=== PATIENT | female | born 1950 | race Hispanic/Latino ===

== ENCOUNTER → 2019-02-03 | Day surgery (SDC) | payer MEDICARE, OTHER ==
[2019-01-29 16:41] LABS: BASOPHILS # (AUTO) 0.1 (0.0-0.1); BASOPHILS % 0.9 % (0.0-1.0); EOSINOPHILS # (AUTO) 0.1 (0.0-0.4); HEMOGLOBIN 13.4 g/dL (12.0-16.0); LYMPHOCYTES # (AUTO) 2.9 (1.0-3.2); LYMPHOCYTES % 51.3 % (18.0-39.1); MEAN CORPUSCULAR HEMOGLOBIN 34.1 pg (28-32); MEAN CORPUSCULAR HGB CONC 35.3 g/dL (31-35); MEAN CORPUSCULAR VOLUME 96.7 fL (81-99); MONOCYTES # (AUTO) 0.7 (0.2-0.8); MONOCYTES % 11.6 % (4.4-11.3); NEUTROPHILS # (AUTO) 1.9 (2.1-6.9); PLATELET COUNT 146 x10e3/uL (140-360); RED BLOOD COUNT 3.93 x10e6/uL (3.6-5.1)
[2019-01-29 17:05] LABS: ALANINE AMINOTRANSFERASE 30 IU/L (0-55); ALBUMIN 3.1 g/dL (3.5-5.0); ALBUMIN/GLOBULIN RATIO 0.9 (0.8-2.0); ALKALINE PHOSPHATASE 128 IU/L (40-150); ANION GAP 11.4 mmol/L (8-16); BLOOD UREA NITROGEN 13 mg/dL (7-26); BUN/CREATININE RATIO 19 (6-25); CARBON DIOXIDE 30 mmol/L (22-29); CHLORIDE 105 mmol/L (98-107); CREATININE, SERUM 0.67 mg/dL (0.57-1.11); EST GLOMERULAR FILTRATION RATE > 60 ML/MIN (60-); GLUCOSE 86 mg/dL (74-118); POTASSIUM 3.4 mmol/L (3.5-5.1); SODIUM 143 mmol/L (136-145)
--- NOTE | 2019-01-29 17:18 | Diagnostic Imaging Report ---
EXAMINATION: CHEST 2 VIEWS INDICATION: Shortness of breath, asthma COMPARISON: None FINDINGS: TUBES and LINES: None. LUNGS: The lungs are moderately inflated. No focal consolidation or pulmonary edema. PLEURA: No pleural effusion or pneumothorax. HEART AND MEDIASTINUM: The cardiomediastinal silhouette is normal in size and contour. BONES AND SOFT TISSUES: No acute fracture or dislocation. Mild degenerative changes of the visualized spine. UPPER ABDOMEN: No free air under the diaphragm. IMPRESSION: No focal pneumonia or pulmonary edema. Signed by: Iglesia Mckeon MD on 01/29/2019 5:15 PM
[2019-01-29 18:27] LABS: INR 1.05; PROTHROMBIN TIME 14.2 seconds (11.9-14.5)
[~2019-02-03] MED LIST: ASPIRIN81 MG PO; ATORVASTATIN CA20 MG PO; BROVANA15 MCG/2 M NEB; FENTANYL CITRATE/PF 100MCG/2 ML INJ ONE; FUROSEMIDE40 MG PO; IPRATROPIU0.2 MG/1 M NEB; METOPROLOL TART25 MG PO; MONTELUKAST SOD10 MG PO; PANTOPRAZOLE SO40 MG PO; POTASSIUM CHLO10 ME1 PO; POTASSIUM CHLO20 ME1; PROPOFOL IV EMULSION 10 MG/ML 50 ML VIAL ONE; SPIRONOLACTONE25 MG PO; [UNRECOGNIZED DRUG - OTHER] NEB
--- OUTSIDE RECORDS SUMMARY | 2019-02-03 08:50 | XMS REPORT | Clinical Summary ---
Author Author [facility] Address Unknown Phone Unavailable Care Team Providers Care Corrosion Prevention Metal Sprayer Name Role Phone Sharpless PCP Allergies Not on File Medications Not on file Active Problems Not on file Social History Date Tobacco Use Types Packs/Day Years Used Never Assessed Sex Assigned at Date Recorded Not on file Industry Job Start Date Occupation Not on file Not on file Not on file Travel End Travel History Travel Start No recent travel history available. Last Filed Vital Signs Not on file Plan of Treatment Not on file Results Not on fileafter 02/02/2018 Insurance Payer Benefit Subscriber ID Type Phone Address Plan / Group [facility] xxxxxxxxxxx HMO/POS [phone] [facility] CHOICE EXCHANGE [facility] xxxxxxxxx MEDICARE D CARE MEDICARE O
--- OUTSIDE RECORDS SUMMARY | 2019-02-03 08:50 | XMS REPORT | Summary of Care ---
Author Author [facility] Organization [facility] Address Unknown Phone Unavailable Encounter CHRIS García(FIN) [id number] Date(s): 12/17/18 - 12/17/18 [facility] [address] [place] [address]- [phone] Discharge Disposition: Home or Self Care Attending Physician: Jluis Faria MD Vital Signs No data available for this section Problem List Condition Effective Dates Status Health Status Informant Abdominal Active pain(Confirmed) Chest Active pain(Confirmed) Cirrhosis of Active liver(Confirmed) H/O: CVA(Confirmed) Active HTN - Active Hypertension(Confirm ed) Microhematuria(Confi Active rmed) Mixed Active incontinence(Confirm ed) Allergies, Adverse Reactions, Alerts No Known Medication Allergies Medications Cipro 500 mg oral tablet 500 mg=1 tab, PO, Q12H, X 7 day, # 14 tab, 0 Refill(s), Pharmacy: [facility] [id number] Start Date: 12/17/18 Stop Date: 12/24/18 Status: Ordered Results No data available for this section Immunizations No data available for this section Procedures No data available for this section Social History Social History Type Response Smoking Status Never smoker; Previous treatment: None; Exposure to Tobacco Smoke None; Cigarette Smoking Last 365 Days No; Reg Smoking Cessation Counseling No entered on: 08/28/18 Assessment and Plan No data available for this section
--- OUTSIDE RECORDS SUMMARY | 2019-02-03 08:50 | XMS REPORT | Continuity of Care Document ---
Author Author [email or web address] Organization [email or web address] Address Unknown Phone Unavailable Care Team Providers Care Clearance Cutter Name Role Phone [facility] Information [employer] Unavailable Unavailable Problems Problem Status Onset Date Classification Date Reported Comments Source N39.46 - MIXED INCONTINENCE Active 09/05/2018 [facility] [employer] N39.46 - MIXED INCONTINENCE R10.9 - UNSP Active 08/29/2018 [facility] [employer] Abdominal pain Active Problem 12/20/2018 [facility] Chest pain Active Problem 12/20/2018 [facility] Cirrhosis of liver Active Problem 12/20/2018 [facility] H/O: CVA Active Problem 12/20/2018 [facility] HTN - Hypertension Active Problem 12/20/2018 [facility] Microhematuria Active Problem 12/20/2018 [facility] Mixed incontinence Active Problem 12/20/2018 [facility] Medications Medication Details Route Status Patient Instructions Ordering Provider Order Date Source Ciprofloxacin 500 MG Oral Tablet [Cipro] 500 mg=1 tab, PO, Q12H, X 7 day, # 14 tab, 0 Refill(s), Pharmacy: [id number] Active 12/17/2018 [facility] Allergies, Adverse Reactions, Alerts Substance Category Reaction Severity Reaction type Status Date Reported Comments Source No Known Medication Allergies Assertion Drug allergy [facility] Immunizations No Data Provided for This Section Results No Data Provided for This Section Pathology Reports No Data Provided for This Section Diagnostic Reports Report Value Date Source Abdomen/Pelvis w/wo IV contrast CT Study: Abdomen/Pelvis w/wo IV contrast CT Clinical Indication: - lower pelvic pain and pressure for years Comparison: None TECHNIQUE: Multiple axial CT images of the abdomen and pelvis were acquired before and after the administration of intravenous contrast. Oral contrast was administered to the patient. Sagittal and coronal reformatted images were performed. CT Radiation Dose DLP 1764.2 mGy-cm FINDINGS: The visualized lung bases are clear bilaterally. The liver is cirrhotic in morphology with a nodular contour. Left splenorenal shunt is seen. There is a 1.9 cm left adrenal nodule, demonstrating 9 Hounsfield units on the precontrast images. This is compatible with a benign adenoma. Gallbladder, pancreas, right adrenal gland, and bilateral kidneys are normal in appearance. No hydronephrosis or perinephric stranding is seen. No renal or ureteral stones are noted. No focal renal lesion is identified. No intrahepatic or extrahepatic biliary duct dilatation is seen. Urinary bladder is well-distended. Patient is status post hysterectomy. The visualized hollow viscera and appendix are normal in appearance. No bowel wall thickening or inflammatory fat stranding is seen. Mild arterial calcifications are noted. No intraperitoneal free air, free fluid, or pathologic adenopathy is seen. Superficial soft tissues are unremarkable. Bones are demineralized. Chronic-appearing mild osteoporotic compression deformity of L4 is seen with 30% loss of central height and 2 mm osseous retropulsion. Degenerative changes of the lower lumbar spine are seen. IMPRESSION: 1. No acute intra-abdominal/pelvic abnormality. 2. Cirrhotic morphology of the liver. 3. 1.9 cm left adrenal adenoma. 4. No focal abnormality of the kidneys or urinary bladder. SL: [id number] 09/05/2018 [facility] Consultation Notes No Data Provided for This Section Discharge Summaries No Data Provided for This Section History and Physicals No Data Provided for This Section Vital Signs No Data Provided for This Section Encounters Location Location Details Encounter Type Encounter Number Reason For Visit Attending Provider ADM Date DC Date Status Source Outpatient [id number] ART GARCIAPercy 08/28/2018 Active [facility] Outpatient [id number] URODYNAMICS 09/17/2018 [facility] Outpatient [id number] ART GARCIAPercy 09/18/2018 Active [facility] Outpatient [id number] NURSE VISIT 09/18/2018 [facility] Outpatient [id number] -URODYNAMICS, 12/17/2018 [facility] Outpatient [id number] Art Mabrysarkis 12/17/2018 12/18/2018 [facility] [id number] -URODYNAMICS, 12/31/2018 Active [facility] Procedures No Data Provided for This Section Assessment and Plan No Data Provided for This Section Plan of Care No Data Provided for This Section Social History Social History Date Source Social History TypeResponse Smoking Status Never smoker; Previous treatment: None; Exposure to Tobacco Smoke None; Cigarette Smoking Last 365 Days No; Reg Smoking Cessation Counseling No entered on: 08/28/18 08/28/2018 [facility] Family History No Data Provided for This Section Advance Directives No Data Provided for This Section Functional Status No Data Provided for This Section
--- OUTSIDE RECORDS SUMMARY | 2019-02-03 08:51 | XMS REPORT ---
Author Author [facility] Address Unknown Phone Unavailable Care Team Providers Care Leather Roller Name Role Phone NAVDEEPSTEFAN JIMMYLLUVIAKip Unavailable Unavailable CARD, [address] Unavailable Unavailable Payers Payer Name Policy Type Policy Number Effective Date Expiration Date Problems This patient has no known problems. Allergies, Adverse Reactions, Alerts Allergy Name Allergy Type Status Severity Reaction(s) Onset Date Inactive Date Treating Clinician Comments No Known Allergies DA Active U 2017-10-27 00:00:00 Medications This patient has no known medications. Encounters Start Date/Time End Date/Time Encounter Type Admission Type Attending Clinicians Care Facility Care Department Encounter ID 2016-12-13 12:34:[address] [facility] [id number] 2017-08-26 00:00:00 2017-08-26 00:00:[address] [facility] [id number] 2017-07-19 00:00:00 2017-07-19 00:00:[address] [facility] [id number] 2017-02-20 00:00:00 2017-02-20 00:00:[address] [facility] [id number] 2017-01-18 00:00:00 2017-01-18 00:00:[address] [facility] [id number] 2017-01-11 00:00:00 2017-01-11 00:00:[address] [facility] [id number] 2016-12-28 00:00:00 2016-12-28 00:00:[address] [facility] [id number] 2016-12-13 00:00:00 2016-12-13 00:00:[address] [facility] [id number] 2016-12-12 10:29:16 2016-12-12 00:00:[address] [facility] [id number] 2016-12-11 10:52:58 2016-12-11 10:52:[address] [facility] [id number] 2016-12-11 00:00:00 2016-12-11 00:00:[address] [facility] [id number] 2016-12-11 00:00:00 2016-12-11 00:00:[address] [facility] [id number] 2016-12-10 20:24:39 2016-12-10 20:24:[address] [facility] [id number] 2016-12-10 15:26:53 2016-12-10 15:26:[address] [facility] [id number] 2016-12-10 15:01:58 2016-12-10 15:01:[address] [facility] [id number] 2016-12-10 13:52:19 2016-12-10 13:52:[address] [facility] [id number] 2016-12-10 13:08:10 2016-12-10 13:08:10 Inpatient [facility] [id number] 2016-12-05 09:01:25 2016-12-05 09:01:[address] [facility] [id number] 2016-12-05 08:34:58 2016-12-05 08:34:[address] [facility] [id number] 2016-12-05 00:00:00 2016-12-05 00:00:[address] [facility] [id number] 2016-12-05 00:00:00 2016-12-05 00:00:[address] [facility] [id number] 2016-12-04 16:02:55 2016-12-04 16:02:[address] [facility] [id number] 2016-12-04 00:00:00 2016-12-04 00:00:[address] [facility] [id number] 2016-11-27 00:00:00 2016-11-27 00:00:[address] [facility] [id number] Results Test Description Test Time Test Comments Text Results Atomic Results Result Comments CHEST 2 VIEWS 2019-01-29 17:13:00 [place] [address] Patient Name: SIMA HARRIS MR #: [id number] : 1950 Age/Sex: 68/F Req #: [id number] Adm Physician: Ordered by: DAISY ROLDAN MD Report #: [id number] Location: OR Room/Bed: Procedure: [id number] DX/CHEST 2 VIEWS Exam Date: 01/29/19 Exam Time: 1701 REPORT STATUS: Signed EXAMINATION: CHEST 2 VIEWS INDICATION: Shortness of breath, asthma COMPARISON: None FINDINGS: TUBES and LINES: None. LUNGS: The lungs are moderately inflated. No focal consolidation or pulmonary edema. PLEURA: No pleural effusion or pneumothorax. HEART AND MEDIASTINUM: The cardiomediastinal silhouette is normal in size and contour. BONES AND SOFT TISSUES: No acute fracture or dislocation. Mild degenerative changes of the visualized spine. UPPER ABDOMEN: No free air under the diaphragm. IMPRESSION: No focal pneumonia or pulmonary edema. Signed by: Rowan Edward MD on 01/29/2019 5:15 PM Dictated By: ROWAN EDWARD MD 14 Transcribed By: GERALDINE on 01/29/191714 COPY TO: DAISY ROLDAN MD - HEPA IMAG INCL GB [facility] 2018-11-25 11:43:00 [place]: B St: REG Name: SIMA HARRIS [facility] : 1950 Age/S: 68/F [address] [facility] Unit #: [id number] Loc: [place] [address] Phys: Polina Irizarry MD Acct: [id number] Dis Date: Status: REG CLI PHONE #: [phone] Exam Date: 11/25/2018 1024 FAX #: [phone] Reason: R14.0 EXAMS: CPT CODE: [id number] HEPA IMAG INCL GB W PHA 31895 TECHNIQUE: 5.5 mCi technetium 99 1.8 mg Kinevac COMPARISON: Ultrasound abdomen 10/16/2018. CT abdomen and pelvis 05/10/2018 FINDINGS: Liver: Uniform distribution of activity in liver. Gallbladder and biliary excretion: Gallbladder is visualized at 30 mins. Bowel activity is seen at 15 mins, consistent with excretion of radionuclide through biliary system. Gallbladder ejection fraction: Calculated gallbladder ejection fraction at 9.5 minutes is 36 %. The gallbladder is refilled with activity at 30 minutes. IMPRESSION: No evidence of biliary obstruction or cystic duct obstruction. Gallbladder ejection fraction within normal limits at 9.5 minutes. at 1143 Reported and signed by: Jeffrey Tripathi M.D. CC: Technologist: SCOTTIE SALDANA Trnscrd Date/Time/By: 11/25/2018 (1145) : By: Jt Gonzales Print D/T: S: 11/25/2018 (6980) PAGE 1 Signed Report - US ABDOMEN COMPLETE 2018-10-16 16:51:00 Name: SIMA HARRIS [facility] : 1950 Age/S: 68 / F [address] [facility] Unit #: [id number] Loc: [place] [address] Phys: Polina Irizarry MD Acct: [id number] Dis Date: Status: REG CLI PHONE #: [phone] Exam Date: 10/16/2018 1610 FAX #: [phone] Reason: BLOATED ABD EXAMS: CPT CODE: [id number] US ABDOMEN COMPLETE 28548 REASON FOR EXAM: BLOATED ABD EXAM ORDER DATE: 10/16/2018 3:26 PM Attending MRajesh: Polina Mejai MD PROCEDURE: - US ABDOMEN COMPLETE FINDINGS: The liver is nodular and contour and heterogeneous in appearance. There is no evidence of focal mass identified. The pancreas is within normal limits. The right kidney measures 12 x 5.7 cm. The left kidney measures 12.1 x 5.6 cm. There is no evidence of hydronephrosis. There is no evidence of nephrolithiasis. There is no evidence of renal mass. The spleen measures 12.2 cm. The gallbladder is unremarkable without evidence of gall stone.The common bile duct measures 0.4 cm. There is no evidence of ascites. The aorta and IVC are within normal limits. The portal vein is patent with hepatopetal flow IMPRESSION: Cirrhosis of the liver. No evidence of gallstone at 1651 Reported and signed by: Braxton Ye M.D. CC: Technologist: Maeve Macdonald RDMS Trnscb Date/Time: 10/16/2018 (1650) [email or web address] Orig Print D/T: S: 10/16/2018 (4240) Probe: PAGE 1 Signed Report SED RATE 2018-08-19 22:15:00 SED RATE (test code=SEDW) 22 mm/hr 0-30 SED [id number] 22:15:00* Test Item Value Reference Range Comments SED RATE (test code=SEDW) 22 mm/hr 0-30 COMPREHENSIVE METABOLIC [id number] 19:16:00* Test Item Value Reference Range Comments SODIUM (test code=NA) 143 mmol/L 136-145 POTASSIUM (test code=K) 3.0 mmol/L 3.5-5.1 CHLORIDE (test code=CL) 106.0 mmol/L 98-107 CARBON DIOXIDE (test code=CO2) 28.0 mmol/L 21-32 ANION GAP (test code=GAP) 12.0 10-20 GLUCOSE (test code=GLU) 82 mg/dL 74-106 BLOOD UREA NITROGEN (test code=BUN) 6 mg/dL 7-18 GLOMERULAR FILTRATION RATE (test code=GFR) > 60 mL/min >=60 Estimated GFR by using Modified MDRD formula.Chronic kidney disease is defined as either kidney damageor GFR <60 mL/min/1.73 m2 for >3 months. CREATININE (test code=CREAT) 0.50 mg/dL 0.55-1.02 Note change in reference range due to change in reagent. BUN/CREATININE RATIO (test code=BUN/CREA) 12.6 10-20 TOTAL PROTEIN (test code=PROT) 7.8 gram/dL 6.4-8.2 ALBUMIN (test code=ALB) 3.3 g/dL 3.4-5.0 GLOBULIN (test code=GLOB) 4.5 gram/dL 2.7-4.2 ALBUMIN/GLOBULIN RATIO (test code=A/G) 0.7 0.75-1.50 CALCIUM (test code=CA) 8.5 mg/dL 8.5-10.1 BILIRUBIN TOTAL (test code=BILT) 1.80 mg/dL 0.0-1.0 SGOT/AST (test code=AST) 73 IUnit/L 15-37 SGPT/ALT (test code=ALT) 35 IUnit/L 12-78 ALKALINE PHOSPHATASE TOTAL (test code=ALKP) 151 IUnit/L 45-117 Note change in reference range due to change in reagent. THYROID STIMULATING [id number] 19:16:00* Test Item Value Reference Range Comments THYROID STIMULATING HORMONE (test code=TSH) 2.200 uIU/mL 0.36-3.74 TSH REFERENCE RANGES: EUTHYROID: 0.35 - 4.3 mIU/mL HYPO : > 5.5 mIU/mL HYPER : < 0.35 mIU/mL COMPREHENSIVE METABOLIC [id number] 19:15:00* Test Item Value Reference Range Comments SODIUM (test code=NA) 143 mmol/L 136-145 POTASSIUM (test code=K) 3.0 mmol/L 3.5-5.1 CHLORIDE (test code=CL) 106.0 mmol/L 98-107 CARBON DIOXIDE (test code=CO2) mmol/L 21-32 ANION GAP (test code=GAP) 10-20 GLUCOSE (test code=GLU) mg/dL 74-106 BLOOD UREA NITROGEN (test code=BUN) mg/dL 7-18 GLOMERULAR FILTRATION RATE (test code=GFR) mL/min >=60 CREATININE (test code=CREAT) mg/dL 0.55-1.02 BUN/CREATININE RATIO (test code=BUN/CREA) 10-20 TOTAL PROTEIN (test code=PROT) gram/dL 6.4-8.2 ALBUMIN (test code=ALB) g/dL 3.4-5.0 GLOBULIN (test code=GLOB) gram/dL 2.7-4.2 ALBUMIN/GLOBULIN RATIO (test code=A/G) 0.75-1.50 CALCIUM (test code=CA) mg/dL 8.5-10.1 BILIRUBIN TOTAL (test code=BILT) mg/dL 0.0-1.0 SGOT/AST (test code=AST) IUnit/L 15-37 SGPT/ALT (test code=ALT) IUnit/L 12-78 ALKALINE PHOSPHATASE TOTAL (test code=ALKP) IUnit/L 45-117 THYROID STIMULATING [id number] 19:15:00* Test Item Value Reference Range Comments THYROID STIMULATING HORMONE (test code=TSH) uIU/mL 0.36-3.74 CBC W/AUTO [id number] 18:31:00* Test Item Value Reference Range Comments WHITE BLOOD CELL (test code=WBC) 5.5 K/mm3 4.5-12.5 RED BLOOD CELL (test code=RBC) 4.63 mill/mm3 3.7-5.2 HEMOGLOBIN (test code=HGB) 14.7 gram/dL 11.5-15.5 HEMATOCRIT (test code=HCT) 44.5 % 36.0-46.0 MEAN CELL VOLUME (test code=MCV) 96.1 fL 80-98 MEAN CELL HGB (test code=MCH) 31.7 picogram 27.0-33.0 MEAN CELL HGB CONCETRATION (test code=MCHC) 33.0 gram/dL 33.0-36.0 RED CELL DISTRIBUTION WIDTH (test code=RDW) 12.8 % 11.6-16.2 RED CELL DISTRIBUTION WIDTH SD (test code=RDW-SD) 45.5 fL 37.0-51.0 PLATELET COUNT (test code=PLT) 154 K/mm3 150-450 MEAN PLATELET VOLUME (test code=MPV) 10.3 fL 6.7-11.0 NEUTROPHIL % (test code=NT%) 40.4 % 39.0-69.0 IMMATURE GRANULOCYTE % (test code=IG%) 0.2 % 0.0-5.0 LYMPHOCYTE % (test code=LY%) 41.1 % 25.0-55.0 MONOCYTE % (test code=MO%) 13.6 % 0.0-10.0 EOSINOPHIL % (test code=EO%) 3.6 % 0.0-5.0 BASOPHIL % (test code=BA%) 1.1 % 0.0-1.0 NUCLEATED RBC % (test code=NRBC%) 0.0 % 0-0 NEUTROPHIL # (test code=NT#) 2.23 K/mm3 1.8-7.7 IMMATURE GRANULOCYTE # (test code=IG#) 0.01 x10 3/uL 0-0.03 LYMPHOCYTE # (test code=LY#) 2.27 K/mm3 1.0-5.0 MONOCYTE # (test code=MO#) 0.75 K/mm3 0-0.8 EOSINOPHIL # (test code=EO#) 0.20 K/mm3 0.0-0.5 BASOPHIL # (test code=BA#) 0.06 K/mm3 0.0-0.2 NUCLEATED RBC # (test code=NRBC#) 0.00 K/mm3 0.0-0.1 - XR CHEST 2 [id number] 17:34:00 FAX: Anival Graves MD [phone] Matthews: O St: REG Name: SIMA LAI [facility] : [birth year] Age/S: 68/F [address] [facility] Unit #: [id number] Loc: [place] [address] Phys: Anival Echols MD Acct: [id number] Dis Date: Status: REG CLI PHONE #: [phone] Exam Date: 08/19/2018 1731 FAX #: [phone] Reason: J06.9,J30.9,K21.9,G47.33,R06.00 EXAMS: CPT CODE: [id number] XR CHEST 2 V 72369 REASON FOR EXAM: J06.9,J30 .9,K21.9,G47.33,R06.00 Exam Order Date: 08/19/2018 5:27 PM Ordering Duncan: Anival Echols MD PROCEDURE: - XR CHEST 2 V COMPARISON: 05/11/2018 FINDINGS: PA and lateral vi ews of the chest show clear lungs. No evidence of consolidation. No eviden ce of effusion. The heart size is minimally enlarged. Pulmonary vasculatur es are unremarkable. The osseous structures are grossly intact. IMPRESSION: No active disease. at 5869 Reported and signed by: Clint Ye M.D. CC: Anival Echols MD Technologist: RT Latrell(Mariam) Trnscrd Date/Time/By: 08/19/2018 (3340) : By: DimasVTL Orig Print D /T: S: 08/19/2018 (4502) PAGE 1 S igned Report HEMOGLOBIN [id number] 21:09:00* Test Item Value Reference Range Comments HEMOGLOBIN A1C (BEAKER) (test pyrq=992) 4.6 % 4.3-6.1 B-TYPE NATRIURETIC FACTOR (BNP)2017-03-21 16:53:00* Test Item Value Reference Range Comments B-TYPE NATRIURETIC PEPTIDE (BEAKER) (test eayx=394) 131 pg/mL 0-100 BASIC METABOLIC [id number] 16:49:00* Test Item Value Reference Range Comments SODIUM (BEAKER) (test mxfw=155) 140 meq/L 136-145 POTASSIUM (BEAKER) (test tijf=411) 4.5 meq/L 3.5-5.1 Specimen markedly hemolyzed CHLORIDE (BEAKER) (test mqzw=651) 107 meq/L 98-107 CO2 (BEAKER) (test juta=966) 25 meq/L 22-29 BLOOD UREA NITROGEN (BEAKER) (test uqao=527) 7 mg/dL 7-21 CREATININE (BEAKER) (test mmdi=387) 0.60 mg/dL 0.57-1.25 Specimen markedly hemolyzed GLUCOSE RANDOM (BEAKER) (test gppe=339) 77 mg/dL 70-105 CALCIUM (BEAKER) (test yfwq=757) 9.5 mg/dL 8.4-10.2 EGFR (BEAKER) (test uspg=3047) 100 mL/min/1.73 sq m ESTIMATED GFR IS NOT ACCURATE CREATININE CLEARANCE IN PREDICTING GLOMERULAR FILTRATION RATE. ESTIMATED GFR IS NOT APPLICABLE FOR DIALYSIS PATIENTS. LIPID [id number] 16:49:00* Test Item Value Reference Range Comments TRIGLYCERIDES (BEAKER) (test yxsg=648) 105 mg/dL Specimen markedly hemolyzed CHOLESTEROL (BEAKER) (test fzmq=020) 154 mg/dL Specimen markedly hemolyzed HDL CHOLESTEROL (BEAKER) (test khyg=622) 49 mg/dL LDL CHOLESTEROL CALCULATED (BEAKER) (test eyoz=890) 84 mg/dL Triglyceride Reference Range: Low Risk <150 Borderline 150-199 High Risk 200-499 Very High Risk >=500Cholesterol Reference Range: Low Risk <200 Borderline 200-239 High Risk >240HDL Cholesterol Reference Range: Low Risk >=60 High Risk <40LDL Cholesterol Reference Range: Optimal <100 Near Optimal 100-129 Borderline 130-159 High 160-189 Very High >=190 HEPATIC FUNCTION [id number] 16:49:00* Test Item Value Reference Range Comments TOTAL PROTEIN (BEAKER) (test kmvu=996) 8.9 gm/dL 6.0-8.3 Specimen markedly hemolyzed ALBUMIN (BEAKER) (test trtc=4974) 3.7 g/dL 3.5-5.0 Specimen markedly hemolyzed BILIRUBIN TOTAL (BEAKER) (test gmbv=998) 1.7 mg/dL 0.2-1.2 Specimen markedly hemolyzed BILIRUBIN DIRECT (BEAKER) (test akuj=235) 0.4 mg/dL 0.1-0.5 Specimen markedly hemolyzed ALKALINE PHOSPHATASE (BEAKER) (test ecnj=104) 147 U/L 40-150 AST (SGOT) (BEAKER) (test puzm=546) 102 U/L 5-34 Specimen markedly hemolyzed ALT (SGPT) (BEAKER) (test rjbb=235) 47 U/L 6-55 Specimen markedly hemolyzed CBC W/PLT COUNT & AUTO [id number] 16:30:00* Test Item Value Reference Range Comments WHITE BLOOD CELL COUNT (BEAKER) (test xbfc=968) 5.9 K/ L 3.5-10.5 RED BLOOD CELL COUNT (BEAKER) (test xguf=731) 4.92 M/ L 3.93-5.22 HEMOGLOBIN (BEAKER) (test kkxh=136) 16.3 GM/DL 11.2-15.7 HEMATOCRIT (BEAKER) (test edyb=401) 47.4 % 34.1-44.9 MEAN CORPUSCULAR VOLUME (BEAKER) (test vuth=307) 96.3 fL 79.4-94.8 MEAN CORPUSCULAR HEMOGLOBIN (BEAKER) (test uouh=563) 33.1 pg 25.6-32.2 MEAN CORPUSCULAR HEMOGLOBIN CONC (BEAKER) (test endf=240) 34.4 GM/DL 32.2-35.5 RED CELL DISTRIBUTION WIDTH (BEAKER) (test pmxe=948) 12.3 % 11.7-14.4 PLATELET COUNT (BEAKER) (test ndnl=142) 170 K/CU MM 150-450 MEAN PLATELET VOLUME (BEAKER) (test ozml=090) 10.5 fL 9.4-12.3 NUCLEATED RED BLOOD CELLS (BEAKER) (test bivi=261) 0 /100 WBC 0-0 NEUTROPHILS RELATIVE PERCENT (BEAKER) (test osqq=244) 43 % LYMPHOCYTES RELATIVE PERCENT (BEAKER) (test awcc=380) 47 % MONOCYTES RELATIVE PERCENT (BEAKER) (test amdv=873) 8 % EOSINOPHILS RELATIVE PERCENT (BEAKER) (test rghj=008) 2 % BASOPHILS RELATIVE PERCENT (BEAKER) (test qrfq=007) 1 % NEUTROPHILS ABSOLUTE COUNT (BEAKER) (test hkig=649) 2.52 K/ L 1.56-6.13 LYMPHOCYTES ABSOLUTE COUNT (BEAKER) (test yusq=699) 2.76 K/ L 1.18-3.74 MONOCYTES ABSOLUTE COUNT (BEAKER) (test wppi=736) 0.47 K/ L 0.24-0.36 EOSINOPHILS ABSOLUTE COUNT (BEAKER) (test ayme=668) 0.10 K/ L 0.04-0.36 BASOPHILS ABSOLUTE COUNT (BEAKER) (test vpkq=722) 0.06 K/ L 0.01-0.08 IMMATURE GRANULOCYTES-RELATIVE PERCENT (BEAKER) (test irli=1939) 0 % 0-1 (MANUAL DIFFERENTIAL)2017-03-21 16:30:00* Test Item Value Reference Range Comments TOTAL COUNTED (BEAKER) (test tkkb=5537) WBC MORPHOLOGY (BEAKER) (test mmjw=561) Normal PLT MORPHOLOGY (BEAKER) (test epnu=671) Normal RBC MORPHOLOGY (BEAKER) (test mewv=746) Normal
[2019-02-03 13:24] VITALS: BP 131/71
== END | disposition home or self-care (01) ==
LOC: OR 08:29
PROVIDERS: ATTEND Internal Medicine Gastroenterology
DX: K29.70 Gastritis, unspecified, without bleeding (principal); D13.0 Benign neoplasm of esophagus; K31.89 Other diseases of stomach and duodenum; K20.9 Esophagitis, unspecified; K21.9 Gastro-esophageal reflux disease without esophagitis; K44.9 Diaphragmatic hernia without obstruction or gangrene; K59.00 Constipation, unspecified; K74.60 Unspecified cirrhosis of liver; I69.392 Facial weakness following cerebral infarction; I69.354 Hemiplegia and hemiparesis following cerebral infarction affecting left non-dominant side; J44.9 Chronic obstructive pulmonary disease, unspecified; I25.10 Atherosclerotic heart disease of native coronary artery without angina pectoris; I11.0 Hypertensive heart disease with heart failure; I50.9 Heart failure, unspecified; Z01.810 Encounter for preprocedural cardiovascular examination; Z01.812 Encounter for preprocedural laboratory examination; Z01.818 Encounter for other preprocedural examination; Z68.33 Body mass index [BMI] 33.0-33.9, adult; Z95.5 Presence of coronary angioplasty implant and graft; Z80.0 Family history of malignant neoplasm of digestive organs
CPT/HCPCS: 36415; 43239; 43251; 71046; 80053; 85025; 85610; 85730; 93005; J2704; J3010

== ENCOUNTER → 2019-03-24 | Day surgery (SDC) | payer MEDICARE, OTHER ==
[2019-03-23 15:02] LABS: BASOPHILS # (AUTO) 0.1 (0.0-0.1); BASOPHILS % 1.2 % (0.0-1.0); EOSINOPHILS # (AUTO) 0.1 (0.0-0.4); EOSINOPHILS % 1.4 % (0.0-6.0); HEMATOCRIT 40.4 % (34.2-44.1); HEMOGLOBIN 14.1 g/dL (12.0-16.0); LYMPHOCYTES # (AUTO) 2.8 (1.0-3.2); MEAN CORPUSCULAR HEMOGLOBIN 33.8 pg (28-32); MEAN CORPUSCULAR HGB CONC 34.9 g/dL (31-35); MEAN CORPUSCULAR VOLUME 96.9 fL (81-99); MONOCYTES # (AUTO) 0.6 (0.2-0.8); PLATELET COUNT 144 x10e3/uL (140-360); RED BLOOD COUNT 4.17 x10e6/uL (3.6-5.1); RED CELL DISTRIBUTION WIDTH 12.8 % (11.7-14.4)
[~2019-03-24] MED LIST changes: -FENTANYL CITRATE/PF 100MCG/2 ML INJ ONE; +LIDOCAINE HCL 2% LOCAL INJ 5 ML SDV VIAL INJ ONE
--- OUTSIDE RECORDS SUMMARY | 2019-03-24 06:22 | XMS REPORT | Clinical Summary ---
Author Author [facility] Address Unknown Phone Unavailable Care Team Providers Care Expander Name Role Phone Sharpless PCP Allergies Not [...] Not on file Results Not on fileafter 03/23/2018 Insurance Payer Benefit Subscriber ID Type Phone Address Plan / Group [facility] x[facility]xx HMO/POS [phone] [facility] CHOICE EXCHANGE [facility] xxxxxxxxx MEDICARE D CARE MEDICARE O
--- OUTSIDE RECORDS SUMMARY | 2019-03-24 06:22 | XMS REPORT | Summary of Care ---
Author Author [facility] Organization [facility] Address Unknown Phone Unavailable Encounter CHRIS García(FIN) [id number] Date(s): 02/18/19 - 02/18/19 [facility] Urology [address] [place] [address]- [phone] Vital Signs No data available for this section Problem List Condition Effective Dates Status Health Status Informant Abdominal Active pain(Confirmed) Chest Active pain(Confirmed) Cirrhosis of Active liver(Confirmed) H/O: CVA(Confirmed) Active HTN - Active Hypertension(Confirm ed) Microhematuria(Confi Active rmed) Mixed Active incontinence(Confirm ed) Allergies, Adverse Reactions, Alerts No Known Medication Allergies Medications No data available for this section Results No data available for this section [...]
--- OUTSIDE RECORDS SUMMARY | 2019-03-24 06:22 | XMS REPORT | Continuity of Care Document ---
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 [employer] N39.46 - MIXED INCONTINENCE R10.9 - UNSP Active 08/29/[address] [facility] [employer] Abdominal pain Active Problem 12/20/2018 [facility] Chest pain Active Problem 12/20/2018 [facility] Cirrhosis of liver Active Problem 12/20/2018 [facility] H/O: CVA Active Problem 12/20/2018 [facility] HTN - Hypertension Active Problem 12/20/2018 [facility] Microhematuria Active Problem 12/20/2018 [facility] Mixed incontinence Active Problem 12/20/2018 [facility] Abdominal pain (finding) Active Problem 02/20/2019 [facility] Chest pain (finding) Active Problem 02/20/2019 [facility] Cirrhosis of liver (disorder) Active Problem 02/20/2019 [facility] History of - CVA (context-dependent category) Active Problem 02/20/2019 [facility] Hypertensive disorder, systemic arterial (disorder) Active Problem 02/20/2019 [facility] Microscopic hematuria (disorder) Active Problem 02/20/2019 [facility] Mixed incontinence (finding) Active Problem 02/20/2019 [facility] Medications Medication Details Route Status Patient Instructions Ordering Provider Order Date Source Ciprofloxacin 500 MG Oral Tablet [Cipro] 500 mg=1 tab, PO, Q12H, X 7 day, # 14 tab, 0 Refill(s), Pharmacy: [id number] Active 12/17/2018 [facility] Allergies, Adverse Reactions, Alerts Substance Category Reaction Severity Reaction type Status Date Reported Comments Source No Known Medication Allergies Assertion Drug allergy [facility] Immunizations No Data Provided for This Section [...] of the kidneys or urinary bladder. SL: [id number] 09/05/[address] [facility] Consultation Notes No Data Provided for This Section Discharge Summaries No Data Provided for This Section History and Physicals No Data Provided for This Section Vital Signs No Data Provided for This Section Encounters Location Location Details Encounter Type Encounter Number Reason For Visit Attending Provider ADM Date DC Date Status Source Outpatient [id number] ART NEGRONJU 08/28/[address] [facility] Outpatient [id number] URODYNAMICS 09/17/2018 [facility] Outpatient [id number] ART NEGRONJU 09/18/[address] [facility] Outpatient [id number] NURSE VISIT 09/18/2018 [facility] Outpatient [id number] -URODYNAMICS, 12/17/2018 [facility] Outpatient [id number] Art Faria 12/17/2018 12/18/2018 [facility] Outpatient [id number] -URODYNAMICS, 12/31/2018 Active [facility] Ambulatory Pre-Reg [id number] 02/18/2019 02/18/2019 [facility] Procedures No Data Provided for This Section Assessment and Plan No Data Provided for This Section Plan of Care No Data Provided for This Section Social History Social History Date Source Social History TypeResponse Smoking Status Never smoker; Previous treatment: None; Exposure to Tobacco Smoke None; Cigarette Smoking Last 365 Days No; Reg Smoking Cessation Counseling No entered on: 08/28/18 08/28/2018 [facility] Family History No Data Provided for This Section Advance Directives No Data Provided for This Section Functional Status No Data Provided for This Section
[2019-03-24 07:43] LABS: INR 1.05; PROTHROMBIN TIME 14.2 seconds (11.9-14.5)
[2019-03-24 07:44] LABS: PARTIAL THROMBOPLASTIN TIME 35.6 seconds (23.8-35.5)
[2019-03-24 10:10] VITALS: BP 164/93
== END | disposition home or self-care (01) ==
LOC: OR 06:17
PROVIDERS: ATTEND Internal Medicine Gastroenterology
DX: Z12.11 Encounter for screening for malignant neoplasm of colon (principal); D12.2 Benign neoplasm of ascending colon; K57.30 Diverticulosis of large intestine without perforation or abscess without bleeding; K64.8 Other hemorrhoids; K59.00 Constipation, unspecified; K74.60 Unspecified cirrhosis of liver; J44.9 Chronic obstructive pulmonary disease, unspecified; I11.0 Hypertensive heart disease with heart failure; I50.9 Heart failure, unspecified; Z01.812 Encounter for preprocedural laboratory examination; Z79.82 Long term (current) use of aspirin; Z68.33 Body mass index [BMI] 33.0-33.9, adult
CPT/HCPCS: 36415 ×2; 45384; 45385; 85025; 85610; 85730; J2001; J2704; 45378

== ENCOUNTER → 2019-11-26 | Day surgery (SDC) | payer MEDICARE, OTHER ==
[2019-11-24 13:47] LABS: BASOPHILS # (AUTO) 0.1 (0.0-0.1); BASOPHILS % 1.3 % (0.0-1.0); EOSINOPHILS # (AUTO) 0.1 (0.0-0.4); EOSINOPHILS % 2.5 % (0.0-6.0); HEMATOCRIT 38.8 % (34.2-44.1); HEMOGLOBIN 13.5 g/dL (12.0-16.0); LYMPHOCYTES # (AUTO) 2.7 (1.0-3.2); LYMPHOCYTES % 56.1 % (18.0-39.1); MEAN CORPUSCULAR HEMOGLOBIN 32.9 pg (28-32); MEAN CORPUSCULAR HGB CONC 34.8 g/dL (31-35); MEAN CORPUSCULAR VOLUME 94.6 fL (81-99); MONOCYTES # (AUTO) 0.5 (0.2-0.8); MONOCYTES % 10.1 % (4.4-11.3); NEUTROPHILS # (AUTO) 1.4 (2.1-6.9); PLATELET COUNT 139 x10e3/uL (140-360)
[2019-11-24 13:57] LABS: INR 1.13; PROTHROMBIN TIME 15.2 seconds (11.9-14.5)
[2019-11-24 13:58] LABS: PARTIAL THROMBOPLASTIN TIME 33.2 seconds (23.8-35.5)
[2019-11-24 14:07] LABS: ALANINE AMINOTRANSFERASE 34 IU/L (0-55); ALBUMIN 3.3 g/dL (3.5-5.0); ALBUMIN/GLOBULIN RATIO 0.9 (0.8-2.0); ALKALINE PHOSPHATASE 142 IU/L (40-150); ANION GAP 12.1 mmol/L (8-16); BLOOD UREA NITROGEN 15 mg/dL (7-26); BUN/CREATININE RATIO 22 (6-25); CALCIUM 9.1 mg/dL (8.4-10.2); CARBON DIOXIDE 24 mmol/L (22-29); CHLORIDE 108 mmol/L (98-107); CHOL/HDL RATIO 2.8 (3.0-3.6); CHOLESTEROL 116 MD/DL (0-199); CREATININE, SERUM 0.67 mg/dL (0.57-1.11); EST GLOMERULAR FILTRATION RATE > 60 ML/MIN (60-); GLUCOSE 87 mg/dL (74-118); HDL CHOLESTEROL 42 MG/DL (40-60); LDL CHOLESTEROL 60 MG/DL (60-130); POTASSIUM 3.1 mmol/L (3.5-5.1); SODIUM 141 mmol/L (136-145); TRIGLYCERIDES 68 MG/DL (0-149)
[~2019-11-26] VITALS: Ht 154.9 cm; Wt 88.9 kg
[2019-11-26] VITALS (12 sets, daily range): BP systolic 108–149; BP diastolic 54–89
[~2019-11-26] MED LIST changes: +ASPIRIN 325 MG TAB ONE; +FENTANYL CITRATE/PF 100MCG/2 ML INJ ONE; +HEPARIN SOD (PORCINE) 1000 UNIT/ML 30ML ONE; +HEPARIN SOD/SOD CHLORIDE 2,000 ML ONE; +IOPAMIDOL 370 MG/ML 200 ML INFUS..BTL INJ ONE; +LACTULOSE20 GM/30 M PO; +LIDOCAINE HCL 2% LOCAL 20 ML VIAL ONE; -LIDOCAINE HCL 2% LOCAL INJ 5 ML SDV VIAL INJ ONE; +LOSARTAN POTASS25 MG PO; +MIDAZOLAM HCL 2 MG/2 ML VIAL ONE; +NITROGLYCERIN/D5W 200 MCG/ML 250 ML ONE; -PROPOFOL IV EMULSION 10 MG/ML 50 ML VIAL ONE; +SODIUM CHLORIDE 0.9% 1000ML 1,000 ML ONE; +VERAPAMIL HCL 2.5 MG/ML 2 ML VIAL ONE
--- OUTSIDE RECORDS SUMMARY | 2019-11-26 07:16 | XMS REPORT ---
Author Author [facility] Address [address] [place] [address] Phone Unavailable Care Team Providers Care General Manager Name Role Phone HARMAN BERRY Attphys Unavailable David CHEEMA, Anupam Singh Attphys DAISY ROLDAN Attphys Unavailable CARD, LANE VELOZ Attphys Unavailable Payers Payer Name Policy Type Policy Number Effective Date Expiration Date S ource Problems Condition Name Condition Details Condition Category Status Onset Date Resolution Date Last Treatment Date Treating Clinician Comments Source LVH (left ventricular hypertrophy) LVH (left ventricular hypertr ophy) Disease Active 2016-12-12 00:00:00 [facility] Chest pain Chest pain Disease Active 2016-12-11 00:00:00 [facility] Wheezing Wheezing Disease Active 2016-12-04 00:00:00 [facility] Chest tightness Chest tightness Disease Active 2016-12-04 00:00:00 [facility] Chronic bilateral low back pain without sciatica Chron ic bilateral low back pain without sciatica Disease Active 2016-02-15 00:00:00 [facility] Whole body pain Whole body pain Disease Active 2016-02-15 00:00:00 [facility] Postural fatigue Postural fatigue Disease Active 2016-02-15 00:00:00 [facility] Muscle weakness (generalized) Muscle weakness (generalized) Disease Active 2016-02-15 00:00:00 [facility] Odynophagia Odynophagia Disease Active 2014-06-29 00:00:00 [facility] Dyspnea Dyspnea Disease Active 2014-06-29 00:00:00 [facility] Uvulitis Uvulitis Disease Active 2014-06-29 00:00:00 [facility] Pharyngitis Pharyngitis Disease Active 2014-06-29 00:00:00 [facility] Cirrhosis Cirrhosis Disease Active 2014-06-21 00:00:00 [facility] Vertebral column pain Vertebral column pain Disease Active 201 10-25-07 00:00:00 [facility] Preventative health care Disease Acti ve 2014-06-21 00:00:00 Overview: ?vertebral fractur e [facility] Transient cerebral ischemia Transient cerebral ischemia Disease Active [facility] Weakness Weakness Disease Active [facility] NSTEMI (non-ST elevated myocardial infarction) NSTEMI (non-ST elevated myocardial infarction) Disease Active [facility] Difficult intravenous access Difficult intravenous access Disease Active [facility] Gastroesophageal reflux disease without esophagitis Ga stroesophageal reflux disease without esophagitis Disease Active [facility] Facial weakness Facial weakness Disease Active [facility] Allergies, Adverse Reactions, Alerts Allergy Name Allergy Type Status Severity Reaction(s) Onset Date Inacti ve Date Treating Clinician Comments Source No Known Allergies DA Active U 2017-10-27 00:00:00 [facility] Social History Social Habit Start Date Stop Date Quantity Comments Source Sex Assigned At [facility] Alcohol intake 2016-12-10 00:00:00 2016-12-10 00:00:00 [facility] Smoking Status Start Date Stop Date Source Never smoker [facility] Medications Ordered Medication Name Filled Medication Name Start Date Stop Da te Current Medication? Ordering Clinician Indication Dosage Frequency Signature (SIG) Comments Components Source omeprazole (PRILOSEC) 20 mg delayed release capsule 12-13 00:00:00 Yes [id number] 40mg QD Take 2 capsules by mouth every morni ng (before breakfast). [facility] aspirin (ASPIRIN) 81 mg chewable tablet 2016-12-13 00:00:00 Yes [id number] 81mg QD Chew and swallow 1 tablet by mouth daily. [facility] furosemide (LASIX) 20 mg tablet 2016-12-13 00:00:00 Yes [id number] 20mg Q.5D Take 1 tablet by mouth 2 times daily. [facility] budesonide-formoterol (SYMBICORT) 80-4.5 mcg/actuation inhal er 2016-12-04 00:00:00 Yes [id number] 2{puff} Q.5D Inhale 2 Puffs by mout h 2 times daily. [facility] albuterol (VENTOLIN HFA,PROVENTIL HFA,PROAIR HFA) 90 mcg/act uation inhaler 2016-12-04 00:00:00 Yes [id number] 2{puff} Inhale 2 Puffs by mouth 4 times daily as needed for Wheezing. [facility] atorvastatin (LIPITOR) 40 mg tablet 2016-01-24 00:00:00 Yes [id number] 40mg Take 1 tablet by mouth at bedtime nightly. [facility] nitroGLYCERIN (NITROSTAT) 0.4 mg sublingual tablet 2016-01 00:00:00 Yes [id number] Dissolve 1 table t under the tongue every 5 minutes as needed, up to 3 times. If chest pain persists, call 911. [facility] Immunizations Ordered Immunization Name Filled Immunization Name Date Status Comments Source Albuterol 0.083% (3ml) 2014-11-11 00:00:00 Completed [facility] Influenza Vaccine 2014-06-21 00:00:00 Completed [facility] Procedures This patient has no known procedures. Plan of Care Planned Activity Planned Date Details Comments Source Future Scheduled Test [code = ] Future Scheduled Test [code = ] Future Scheduled Test [code = ] Encounters Start Date/Time End Date/Time Encounter Type Admission Type Attendi [facility] Care Department Encounter ID Source 2016-12-13 12:34:39 Inpatient [facility] [id number] [facility] 2019-05-19 14:09:22 2019-05-19 14:41:32 Office Visit Francisco Parkre i [facility] [id number] 2019-05-05 13:46:33 2019-05-05 15:10:57 Office Visit [facility] Francisco rogers [facility] [id number] 2019-04-21 14:02:00 2019-04-21 14:12:00 Office Visit Francisco Parker i [facility] [id number] 2019-04-14 13:41:12 2019-04-14 15:25:30 Office Visit Francisco Parker i [facility] [id number] 2017-08-26 00:00:00 2017-08-26 00:00:00 Outpatient [facility] [id number] [facility] 2017-07-19 00:00:00 2017-07-19 00:00:00 Outpatient [facility] [id number] [facility] 2017-02-20 00:00:00 2017-02-20 00:00:00 Outpatient [facility] [id number] [facility] 2017-01-18 00:00:00 2017-01-18 00:00:00 Outpatient [facility] [id number] [facility] 2017-01-11 00:00:00 2017-01-11 00:00:00 Outpatient [facility] [id number] [facility] 2016-12-28 00:00:00 2016-12-28 00:00:00 Outpatient [facility] [id number] [facility] 2016-12-13 00:00:00 2016-12-13 00:00:00 Outpatient [facility] [id number] [facility] 2016-12-12 10:29:16 2016-12-12 00:00:00 Inpatient [facility] [id number] [facility] 2016-12-11 10:52:58 2016-12-11 10:52:58 Outpatient [facility] [id number] [facility] 2016-12-11 00:00:00 2016-12-11 00:00:00 Outpatient [facility] [id number] [facility] 2016-12-11 00:00:00 2016-12-11 00:00:00 Outpatient [facility] [id number] [facility] 2016-12-10 20:24:39 2016-12-10 20:24:39 Emergency [facility] [id number] [facility] 2016-12-10 15:26:53 2016-12-10 15:26:53 Emergency [facility] [id number] [facility] 2016-12-10 15:01:58 2016-12-10 15:01:58 Emergency [facility] [id number] [facility] 2016-12-10 13:52:19 2016-12-10 13:52:19 Emergency [facility] [id number] [facility] 2016-12-10 13:08:10 2016-12-10 13:08:10 Inpatient [facility] [id number] [facility] 2016-12-05 09:01:25 2016-12-05 09:01:25 Outpatient [facility] [id number] [facility] 2016-12-05 08:34:58 2016-12-05 08:34:58 Outpatient [facility] [id number] [facility] 2016-12-05 00:00:00 2016-12-05 00:00:00 Outpatient [facility] [id number] [facility] 2016-12-05 00:00:00 2016-12-05 00:00:00 Outpatient [facility] [id number] [facility] 2016-12-04 16:02:55 2016-12-04 16:02:55 Outpatient [facility] [id number] [facility] 2016-12-04 00:00:00 2016-12-04 00:00:00 Outpatient [facility] [id number] [facility] 2016-11-27 00:00:00 2016-11-27 00:00:00 Outpatient [facility] [id number] [facility] Results Test Description Test Time Test Comments Results Result Comments Source HEPATITIS A ANTIBODY, IGG 2019-10-26 18:24:00 Test Item HEPATITIS A IGG ANTIBODY (BEAKER) (test code = 2797) Reactive N onreactive [place] ID - BSHEPATITIS B SURFACE [id number] 18:24:00* Test Item Value Reference Range Interpretation Comments HEPATITIS B SURFACE ANTIBODY (BEAKER) (test code = 647) < mIU/mL <8.0 Territory Representative ID - BSHEPATITIS B CORE ANTIBODY, [id number] 18:20:00* Test Item Value Reference Range Interpretation Comments HEPATITIS B CORE TOTAL ANTIBODY (BEAKER) (test code = 497) N onreactive Nonreactive Territory Representative ID - BSHEPATIC FUNCTION [id number] 16:43:00* Test Item Value Reference Range Interpretation Comments TOTAL PROTEIN (BEAKER) (test code = 770) 7.4 gm/dL 6.0-8.3 ALBUMIN (BEAKER) (test code = 1145) 3.6 g/dL 3.5-5.0 BILIRUBIN TOTAL (BEAKER) (test code = 377) 1.8 mg/dL 0.2-1.2 H BILIRUBIN DIRECT (BEAKER) (test code = 706) 0.7 mg/dL 0.1-0.5 H ALKALINE PHOSPHATASE (BEAKER) (test code = 346) 160 U/L 40-150 H AST (SGOT) (BEAKER) (test code = 353) 79 U/L 5-34 H ALT (SGPT) (BEAKER) (test code = 347) 39 U/L 6-55 Territory Representative ID - BSBASIC METABOLIC [id number] 16:43:00* Test Item Value Reference Range Interpretation Comments SODIUM (BEAKER) (test code = 381) 141 meq/L 136-145 POTASSIUM (BEAKER) (test code = 379) 3.3 meq/L 3.5-5.1 L CHLORIDE (BEAKER) (test code = 382) 106 meq/L 98-107 CO2 (BEAKER) (test code = 355) 27 meq/L 22-29 BLOOD UREA NITROGEN (BEAKER) (test code = 354) 13 mg/dL 7-21 CREATININE (BEAKER) (test code = 358) 0.60 mg/dL 0.57-1.25 GLUCOSE RANDOM (BEAKER) (test code = 652) 101 mg/dL 70-105 CALCIUM (BEAKER) (test code = 697) 9.0 mg/dL 8.4-10.2 EGFR (BEAKER) (test code = 1092) 99 mL/min/1.73 sq m ESTIMATED GFR IS NOT ACCURATE CREATININE CLEARANCE IN PREDICTING GLOMERULAR FILTRATION RATE. ESTIMATED GFR IS NOT APPLICABLE FOR DIALYSIS PATIENTS. Territory Representative ID - BSPROTHROMBIN TIME/[id number] 16:40:00* Test Item Value Reference Range Interpretation Comments PROTIME (BEAKER) (test code = 759) 15.3 seconds 11.9-14.2 H INR (BEAKER) (test code = 370) 1.3 <=5.9 Effective 12/10/2018: PT Reference Range ChangeNew: 11.9-14.2 Previous: 11.7-14. 7RECOMMENDED COUMADIN/WARFARIN INR THERAPY RANGESSTANDARD DOSE: 2.0-3.0 Include s: PROPHYLAXIS for venous thrombosis, systemic embolization; TREATMENT for venou s thrombosis and/or pulmonary embolus.HIGH RISK: Target INR is 2.5-3.5 for patie nts wiht mechanical heart valves.CBC W/PLT COUNT & AUTO [id number] 16:17:00* Test Item Value Reference Range Interpretation Comments WHITE BLOOD CELL COUNT (BEAKER) (test code = 775) 5.2 K/ L 3.5- 10.5 RED BLOOD CELL COUNT (BEAKER) (test code = 761) 4.78 M/ L 3.93-5 .22 HEMOGLOBIN (BEAKER) (test code = 410) 15.4 GM/DL 11.2-15.7 HEMATOCRIT (BEAKER) (test code = 411) 44.8 % 34.1-44.9 MEAN CORPUSCULAR VOLUME (BEAKER) (test code = 753) 93.7 fL 79. 4-94.8 MEAN CORPUSCULAR HEMOGLOBIN (BEAKER) (test code = 751) 32.2 pg 25.6-32.2 MEAN CORPUSCULAR HEMOGLOBIN CONC (BEAKER) (test code = 752) 34.4 GM/DL 32.2-35.5 RED CELL DISTRIBUTION WIDTH (BEAKER) (test code = 412) 12.1 % 11.7-14.4 PLATELET COUNT (BEAKER) (test code = 756) 146 K/CU MM 150-450 L MEAN PLATELET VOLUME (BEAKER) (test code = 754) 10.5 fL 9.4-12 .3 NUCLEATED RED BLOOD CELLS (BEAKER) (test code = 413) 0 /100 WBC 0 -0 NEUTROPHILS RELATIVE PERCENT (BEAKER) (test code = 429) 47 % LYMPHOCYTES RELATIVE PERCENT (BEAKER) (test code = 430) 38 % MONOCYTES RELATIVE PERCENT (BEAKER) (test code = 431) 12 % EOSINOPHILS RELATIVE PERCENT (BEAKER) (test code = 432) 1 % BASOPHILS RELATIVE PERCENT (BEAKER) (test code = 437) 1 % NEUTROPHILS ABSOLUTE COUNT (BEAKER) (test code = 670) 2.44 K/ L 1.56-6.13 LYMPHOCYTES ABSOLUTE COUNT (BEAKER) (test code = 414) 1.99 K/ L 1.18-3.74 MONOCYTES ABSOLUTE COUNT (BEAKER) (test code = 415) 0.62 K/ L 0. 24-0.36 H EOSINOPHILS ABSOLUTE COUNT (BEAKER) (test code = 416) 0.06 K/ L 0.04-0.36 BASOPHILS ABSOLUTE COUNT (BEAKER) (test code = 417) 0.06 K/ L 0. 01-0.08 IMMATURE GRANULOCYTES-RELATIVE PERCENT (BEAKER) (test code = 2801) 0 % 0-1 [id number] 07:51:00* Test Item Value Reference Range Interpretation Comments GLUBED (test code = GLUBED) 88 mg/dL 74-106 N Performed by certified rail switch operator at [facility] [id number] 20:34:00* Test Item Value Reference Range Interpretation Comments GLUBED (test code = GLUBED) 146 mg/dL 74-106 H Performed by certified rail switch operator at [facility] - CT ABD PELVIS W/O [id number] 10:00:00 Name: SIMA HARRIS [facility] : 1950 Age/S: 69 / F [address] [facility] Unit #: [id number] Loc: [place] [address] Phys: Jeffrey Sanches MD Acct: [id number] Dis Date: Status: ADM IN PHONE #: [phone] Exam Date: 10/04/2019 0934 FAX #: [phone] Reason: SOB/PAIN EXAMS: CPT CODE: [id number] CT ABD PELVIS W/O CONT 02254 HISTORY: Pain. COMPARISON: CT abdomen pelvis from May 10, 2018. Location: TH. CT abdomen and pelvis: Stone protocol. Automated exposure control. CT ABDOMEN: The lung bases are clear. Dependent changes. The liver is unremarkable on this noncontrast exam. No parenchymal mass. Gallbladder is without radiopaque stones. Liver is not enlarged. Spleen is not enlarged with multiple large perisplenic and perigastric varices. Moderately distended stomach with food is unremarkable. Noncontrast pancreas is normal. Right adrenal is normal. 2 cm left adrenal nodule with average Hounsfield unit measurement of 16 is stable from April 2018 and December 24, 2017 demonstrating near 2 year stability Kidneys are free from hydroureteronephrosis. No calyceal stones. No pathologic adenopathy. Mild atherosclero tic change of the abdominal and pelvic vasculature. No bowel obstruction or colitis or diverticulitis or enteritis. CT PELVIS: Normal appendix. Pelvic bowel loops are unobstructed. No free f luid or free air. No pelvic pathologic adenopathy. Subcutan eous tissues and the musculature are normal in appearance. No lytic or bl astic lesions noted within the bony skeleton. DJD. Mild loss of height o f multiple lumbar vertebral bodies is nonspecific finding. U nremarkable incompletely distended urinary bladder. Patient is post hyste rectomy. No free fluid or free air. No pelvic pathologic adenopathy. PAGE 1 Signed Report ([facility]) Name: SIMA HARRIS [facility] : 1950 Age/S: 69 / F [address] [facility] Unit #: [id number] Loc: [place] [address] Phys: Mane Sanches MD Acct: [id number] Dis Date: Status: ADM IN PHONE #: [phone] Exam Date: 10/04/2019 09 FAX #: [phone] Reason: SOB/PAIN EXAMS: CPT CODE: [id number] CT ABD PE LVIS W/O CONT 84463 <Continued> IMPRESSION: No acute intra-abdominal or intrapelvic pathology. Stable 2 cm left adrenal nodule from December 2017. at 1000 Reported and signed by: Abdirashid Shin M.D. CC: Jeffrey Sanches Techno logist:Cherelle Jose RT(R),CT CTDI: DLP: Trnscb Date/Time : 10/04/2019 (1000) t.SDR.TH4 Orig Print D/T: S: 10/04/19 (1003) PAGE 2 Signed Report - CT CHEST W/O [id number] 09:50:00 Name: SIMA HARRIS [facility] : 1950 Age/S: 69 / F [address] [facility] Unit #: [id number] Loc: [place] [address] Phys: Jeffrey Sanches MD Acct: [id number] Dis Date: Status: ADM IN PHONE #: [phone] Exam Date: 10/04/2019 0934 FAX #: [phone] Reason: SOB EXAMS: CPT CODE: [id number] CT CHEST W/O CONTRAST 30968 HISTORY: Shortness of breath and unstable angina. COMPARISON: CT chest from December 24, 2017. Location: TH. CT chest without contrast: Automated exposure control. The lungs are clear of infiltrates, effusion or congestion. Dependent changes. No bronchiectasis, honeycombing or fibrosis. Normal caliber unopacified aorta and pulmonary arteries. Unremarkable incompletely included thyroid glands. Esophageal wall is not thickened. No pathologic adenopathy. Cardiomegaly without pericardial effusion with minimal atherosclerotic calcification of the LAD. Visualized upper abdomen demonstrate nodular lobular liver may suggest cirrhosis. 2 cm left adrenal nodule with average Hounsfield unit measurement of 17 is stable and unchanged from December 2017. Subcutaneous tissues and the musculature are normal in appearance. No lytic or blastic lesions noted within the bony skeleton. DJD. IMPRESSION: Lungs are clear. No pathologic adenopathy. at 0950 Reported and signed by: Abdirashid Shin M.D. CC: Jeffrey Sanches Technologist:Cherelle Jose RT(R),CT CTDI: DLP: Trnscb Date/Time: 10/04/2019 (0950) t.SDR.TH4 Orig Print D/T: S: 10/04/2019 (9711) PAGE 1 Signed Report BASIC METABOLIC [id number] 06:19:00* Test Item Value Reference Range Interpretation Comments SODIUM (test code = NA) 143 mmol/L 136-145 N POTASSIUM (test code = K) 3.2 mmol/L 3.5-5.1 L CHLORIDE (test code = CL) 112.0 mmol/L 98-107 H CARBON DIOXIDE (test code = CO2) 28.0 mmol/L 21-32 N ANION GAP (test code = GAP) 6.2 10-20 L GLUCOSE (test code = GLU) 87 mg/dL 74-106 N BLOOD UREA NITROGEN (test code = BUN) 8 mg/dL 7-18 N GLOMERULAR FILTRATION RATE (test code = GFR) > 60 mL/min >=60 Estimated GFR by using Modified MDRD formula.Chronic kidney disease is defined as either kidney damageor GFR <60 mL/min/1.73 m2 for >3 months. CREATININE (test code = CREAT) 0.40 mg/dL 0.55-1.02 L Note change in reference range due to change in reagent. BUN/CREATININE RATIO (test code = BUN/CREA) 20.0 10-20 N CALCIUM (test code = CA) 8.7 mg/dL 8.5-10.1 N BASIC METABOLIC [id number] 06:14:00* Test Item Value Reference Range Interpretation Comments SODIUM (test code = NA) 143 mmol/L 136-145 N POTASSIUM (test code = K) 3.2 mmol/L 3.5-5.1 L CHLORIDE (test code = CL) 112.0 mmol/L 98-107 H CARBON DIOXIDE (test code = CO2) mmol/L 21-32 ANION GAP (test code = GAP) 10-20 GLUCOSE (test code = GLU) mg/dL 74-106 BLOOD UREA NITROGEN (test code = BUN) mg/dL 7-18 GLOMERULAR FILTRATION RATE (test code = GFR) mL/min >=60 CREATININE (test code = CREAT) mg/dL 0.55-1.02 BUN/CREATININE RATIO (test code = BUN/CREA) 10-20 CALCIUM (test code = CA) mg/dL 8.5-10.1 CBC W/AUTO [id number] 06:09:00* Test Item Value Reference Range Interpretation Comments WHITE BLOOD CELL (test code = WBC) 5.8 K/mm3 4.5-12.5 N RED BLOOD CELL (test code = RBC) 4.21 mill/mm3 3.7-5.2 N HEMOGLOBIN (test code = HGB) 13.9 gram/dL 11.5-15.5 N HEMATOCRIT (test code = HCT) 41.0 % 36.0-46.0 N MEAN CELL VOLUME (test code = MCV) 97.4 fL 80-98 N MEAN CELL HGB (test code = MCH) 33.0 picogram 27.0-33.0 N MEAN CELL HGB CONCETRATION (test code = MCHC) 33.9 gram/dL 33.0-36. 0 N RED CELL DISTRIBUTION WIDTH (test code = RDW) 12.8 % 11.6-16. 2 N RED CELL DISTRIBUTION WIDTH SD (test code = RDW-SD) 46.1 fL 37 .0-51.0 N PLATELET COUNT (test code = PLT) 148 K/mm3 150-450 L MEAN PLATELET VOLUME (test code = MPV) 10.4 fL 6.7-11.0 N NEUTROPHIL % (test code = NT%) 36.8 % 39.0-69.0 L IMMATURE GRANULOCYTE % (test code = IG%) 0.2 % 0.0-5.0 N LYMPHOCYTE % (test code = LY%) 49.8 % 25.0-55.0 N MONOCYTE % (test code = MO%) 9.6 % 0.0-10.0 N EOSINOPHIL % (test code = EO%) 2.6 % 0.0-5.0 N BASOPHIL % (test code = BA%) 1.0 % 0.0-1.0 N NUCLEATED RBC % (test code = NRBC%) 0.0 % 0-0 N NEUTROPHIL # (test code = NT#) 2.14 K/mm3 1.8-7.7 N IMMATURE GRANULOCYTE # (test code = IG#) 0.01 x10 3/uL 0-0.03 N LYMPHOCYTE # (test code = LY#) 2.90 K/mm3 1.0-5.0 N MONOCYTE # (test code = MO#) 0.56 K/mm3 0-0.8 N EOSINOPHIL # (test code = EO#) 0.15 K/mm3 0.0-0.5 N BASOPHIL # (test code = BA#) 0.06 K/mm3 0.0-0.2 N NUCLEATED RBC # (test code = NRBC#) 0.00 K/mm3 0.0-0.1 N MANUAL DIFF REQUIRED (test code = MDIFF) NO CBC W/AUTO [id number] 05:55:00* Test Item Value Reference Range Interpretation Comments WHITE BLOOD CELL (test code = WBC) K/mm3 4.5-12.5 RED BLOOD CELL (test code = RBC) mill/mm3 3.7-5.2 HEMOGLOBIN (test code = HGB) 13.9 gram/dL 11.5-15.5 N HEMATOCRIT (test code = HCT) 41.0 % 36.0-46.0 N MEAN CELL VOLUME (test code = MCV) fL 80-98 MEAN CELL HGB (test code = MCH) picogram 27.0-33.0 MEAN CELL HGB CONCETRATION (test code = MCHC) gram/dL 33.0-36. 0 RED CELL DISTRIBUTION WIDTH (test code = RDW) % 11.6-16. 2 RED CELL DISTRIBUTION WIDTH SD (test code = RDW-SD) fL 37 .0-51.0 PLATELET COUNT (test code = PLT) K/mm3 150-450 MEAN PLATELET VOLUME (test code = MPV) fL 6.7-11.0 NEUTROPHIL % (test code = NT%) % 39.0-69.0 IMMATURE GRANULOCYTE % (test code = IG%) % 0.0-5.0 LYMPHOCYTE % (test code = LY%) % 25.0-55.0 MONOCYTE % (test code = MO%) % 0.0-10.0 EOSINOPHIL % (test code = EO%) % 0.0-5.0 BASOPHIL % (test code = BA%) % 0.0-1.0 NEUTROPHIL # (test code = NT#) K/mm3 1.8-7.7 LYMPHOCYTE # (test code = LY#) K/mm3 1.0-5.0 MONOCYTE # (test code = MO#) K/mm3 0-0.8 EOSINOPHIL # (test code = EO#) K/mm3 0.0-0.5 BASOPHIL # (test code = BA#) K/mm3 0.0-0.2 BASIC METABOLIC [id number] 04:40:00* Test Item Value Reference Range Interpretation Comments SODIUM (test code = NA) 145 mmol/L 136-145 N POTASSIUM (test code = K) 3.3 mmol/L 3.5-5.1 L CHLORIDE (test code = CL) 112.0 mmol/L 98-107 H CARBON DIOXIDE (test code = CO2) 28.0 mmol/L 21-32 N ANION GAP (test code = GAP) 8.3 10-20 L GLUCOSE (test code = GLU) 93 mg/dL 74-106 N BLOOD UREA NITROGEN (test code = BUN) 8 mg/dL 7-18 N GLOMERULAR FILTRATION RATE (test code = GFR) > 60 mL/min >=60 Estimated GFR by using Modified MDRD formula.Chronic kidney disease is defined as either kidney damageor GFR <60 mL/min/1.73 m2 for >3 months. CREATININE (test code = CREAT) 0.40 mg/dL 0.55-1.02 L Note change in reference range due to change in reagent. BUN/CREATININE RATIO (test code = BUN/CREA) 20.0 10-20 N CALCIUM (test code = CA) 8.1 mg/dL 8.5-10.1 L LIPID PROFILE (CORONARY RISK)2019-10-03 04:40:00* Test Item Value Reference Range Interpretation Comments TRIGLYCERIDES (test code = TRIG) 84 mg/dL 20-150 N CHOLESTEROL (test code = CHOL) 129 mg/dL 0-200 N CHOLESTEROL/HDL RATIO (test code = CHOLHDL) 2.0 RATIO 0-4.9 N RISK ASSOCIATED WITH CHOL/HDL RATIOS: Risk Male Female1/2 AVERAGE 3.43 3.27AVERAGE 4.97 4.442X AVERAGE 9.55 7.053X AVERAGE 23.39 11.04 REFERENCE VALUE IS RELATED TO RISK LEVELS ASRECOMMENDED BY THE MART[facility]. HEART, LUNG, AND BLOOD INST. HDL CHOLESTEROL (test code = HDL) 52 mg/dL 40-60 N LIPOPROTEIN LDL (test code = LDL) 67 mg/dL 100-129 L Reference Interval: mg/dL mmol/L Optimal <100 <2.6Near/above optimal 100-129 2.6- 3.3Borderline High 130-159 3.4-4.1High 160-189 4.1-4.9Very High >=190 >=4.9========= This LDL result is a direct measurement.========= BASIC METABOLIC [id number] 04:32:00* Test Item Value Reference Range Interpretation Comments SODIUM (test code = NA) 145 mmol/L 136-145 N POTASSIUM (test code = K) 3.3 mmol/L 3.5-5.1 L CHLORIDE (test code = CL) 112.0 mmol/L 98-107 H CARBON DIOXIDE (test code = CO2) mmol/L 21-32 ANION GAP (test code = GAP) 10-20 GLUCOSE (test code = GLU) mg/dL 74-106 BLOOD UREA NITROGEN (test code = BUN) mg/dL 7-18 GLOMERULAR FILTRATION RATE (test code = GFR) mL/min >=60 CREATININE (test code = CREAT) mg/dL 0.55-1.02 BUN/CREATININE RATIO (test code = BUN/CREA) 10-20 CALCIUM (test code = CA) mg/dL 8.5-10.1 LIPID PROFILE (CORONARY RISK)2019-10-03 04:32:00* Test Item Value Reference Range Interpretation Comments TRIGLYCERIDES (test code = TRIG) mg/dL 20-150 CHOLESTEROL (test code = CHOL) mg/dL 0-200 CHOLESTEROL/HDL RATIO (test code = CHOLHDL) RATIO 0-4.9 HDL CHOLESTEROL (test code = HDL) mg/dL 40-60 LIPOPROTEIN LDL (test code = LDL) mg/dL 100-129 CBC W/AUTO [id number] 04:15:00* Test Item Value Reference Range Interpretation Comments WHITE BLOOD CELL (test code = WBC) 5.0 K/mm3 4.5-12.5 N RED BLOOD CELL (test code = RBC) 4.03 mill/mm3 3.7-5.2 N HEMOGLOBIN (test code = HGB) 13.2 gram/dL 11.5-15.5 N HEMATOCRIT (test code = HCT) 39.0 % 36.0-46.0 N MEAN CELL VOLUME (test code = MCV) 96.8 fL 80-98 N MEAN CELL HGB (test code = MCH) 32.8 picogram 27.0-33.0 N MEAN CELL HGB CONCETRATION (test code = MCHC) 33.8 gram/dL 33.0-36. 0 N RED CELL DISTRIBUTION WIDTH (test code = RDW) 13.0 % 11.6-16. 2 N RED CELL DISTRIBUTION WIDTH SD (test code = RDW-SD) 46.4 fL 37 .0-51.0 N PLATELET COUNT (test code = PLT) 133 K/mm3 150-450 L MEAN PLATELET VOLUME (test code = MPV) 9.9 fL 6.7-11.0 N NEUTROPHIL % (test code = NT%) 30.7 % 39.0-69.0 L IMMATURE GRANULOCYTE % (test code = IG%) 0.2 % 0.0-5.0 N LYMPHOCYTE % (test code = LY%) 51.8 % 25.0-55.0 N MONOCYTE % (test code = MO%) 12.5 % 0.0-10.0 H EOSINOPHIL % (test code = EO%) 3.8 % 0.0-5.0 N BASOPHIL % (test code = BA%) 1.0 % 0.0-1.0 N NUCLEATED RBC % (test code = NRBC%) 0.0 % 0-0 N NEUTROPHIL # (test code = NT#) 1.55 K/mm3 1.8-7.7 L IMMATURE GRANULOCYTE # (test code = IG#) 0.01 x10 3/uL 0-0.03 N LYMPHOCYTE # (test code = LY#) 2.61 K/mm3 1.0-5.0 N MONOCYTE # (test code = MO#) 0.63 K/mm3 0-0.8 N EOSINOPHIL # (test code = EO#) 0.19 K/mm3 0.0-0.5 N BASOPHIL # (test code = BA#) 0.05 K/mm3 0.0-0.2 N NUCLEATED RBC # (test code = NRBC#) 0.00 K/mm3 0.0-0.1 N MANUAL DIFF REQUIRED (test code = MDIFF) NO CBC W/AUTO [id number] 04:12:00* Test Item Value Reference Range Interpretation Comments WHITE BLOOD CELL (test code = WBC) K/mm3 4.5-12.5 RED BLOOD CELL (test code = RBC) mill/mm3 3.7-5.2 HEMOGLOBIN (test code = HGB) 13.2 gram/dL 11.5-15.5 N HEMATOCRIT (test code = HCT) 39.0 % 36.0-46.0 N MEAN CELL VOLUME (test code = MCV) fL 80-98 MEAN CELL HGB (test code = MCH) picogram 27.0-33.0 MEAN CELL HGB CONCETRATION (test code = MCHC) gram/dL 33.0-36. 0 RED CELL DISTRIBUTION WIDTH (test code = RDW) % 11.6-16. 2 RED CELL DISTRIBUTION WIDTH SD (test code = RDW-SD) fL 37 .0-51.0 PLATELET COUNT (test code = PLT) K/mm3 150-450 MEAN PLATELET VOLUME (test code = MPV) fL 6.7-11.0 NEUTROPHIL % (test code = NT%) % 39.0-69.0 IMMATURE GRANULOCYTE % (test code = IG%) % 0.0-5.0 LYMPHOCYTE % (test code = LY%) % 25.0-55.0 MONOCYTE % (test code = MO%) % 0.0-10.0 EOSINOPHIL % (test code = EO%) % 0.0-5.0 BASOPHIL % (test code = BA%) % 0.0-1.0 NEUTROPHIL # (test code = NT#) K/mm3 1.8-7.7 LYMPHOCYTE # (test code = LY#) K/mm3 1.0-5.0 MONOCYTE # (test code = MO#) K/mm3 0-0.8 EOSINOPHIL # (test code = EO#) K/mm3 0.0-0.5 BASOPHIL # (test code = BA#) K/mm3 0.0-0.2 [id number] 22:35:00* Test Item Value Reference Range Interpretation Comments TROPONIN-I (test code = TROPI) 0.239 ng/mL 0-0.045 HH PREVIOUSLY CALLED COMMENTS TO PASTING MACHINE OFFBEARER: COLLECT 3 HOURS AFTER PREVIOUS [id number] 20:08:00* Test Item Value Reference Range Interpretation Comments TROPONIN-I (test code = TROPI) 0.258 ng/mL 0-0.045 HH PEVIOUSLY CALLED COMMENTS TO PASTING MACHINE OFFBEARER: COLLECT 3 HOURS AFTER PREVIOUS SAMPLEURINALYSIS [id number] 13:20:00* Test Item Value Reference Range Interpretation Comments UA COLOR (test code = COLU) YELLOW YELLOW UA APPEARANCE (test code = APPU) CLEAR CLEAR UA GLUCOSE DIPSTICK (test code = DGLUU) NEGATIVE mg/dL NEGATIVE UA BILIRUBIN DIPSTICK (test code = BILU) NEGATIVE mg/dL NEGATIVE UA KETONE DIPSTICK (test code = KETU) NEGATIVE mg/dL NEGATIVE UA SPECIFIC GRAVITY (test code = SGU) 1.028 1.001-1.035 UA BLOOD DIPSTICK (test code = NATA) Negative mg/dL NEGATIVE UA PH DIPSTICK (test code = JUAN MIGUEL) 7.0 5.0-8.0 UA PROTEIN DIPSTICK (test code = PROU) 20 (Trace) mg/dL NEGATIVE A UA UROBILINIOGEN DIPSTICK (test code = URO) 4.0 (2+) mg/dL NEGATIVE A UA NITRITE DIPSTICK (test code = ROMEO) NEGATIVE NEGATIVE UA LEUKOCYTE ESTERASE W REFLEX (test code = LEUUR) NEGATIVE Bart/uL NEGATIVE UA WBC (test code = WBCU) 0-5 per HPF 0-5 UA RBC (test code = RBCU) 3-5 #/HPF 0-5 UA EPITHELIAL CELLS (test code = EPIU) MOD per HPF FEW UA BACTERIA (test code = BACU) FEW #/HPF NONE A UA MUCUS (test code = MUCU) FEW #/LPF FEW Urine Source? Clean CatchDRUGS OF ABUSE SCREEN [id number] 13:20:00* Test Item Value Reference Range Interpretation Comments URN COCAINE (test code = COCAURN) NEGATIVE <300 ng/mL URN CANNABINOIDS (test code = CANNABURN) NEGATIVE <50 ng/mL URN AMPHETAMINE (test code = AMPHETURN) NEGATIVE <1000 ng/mL URN BARBITURATE (test code = BARBITURN) POSITIVE <200 ng/mL A This test provides only a preliminary test result. A morespecific alternate chemical method must be used in order toobtain a confirmed analytical result. Gas chromatography/mass spectrometry (GC/MS) is thepreferred confirmatory method. Other chemical confirmationmethods are available. Clinical consideration and professional judgment should be applied to any drug of abusetest result, particularly when preliminary positive resultsare used.Unconfirmed screening results must not be used fornon-medical purposes (e.g., employment testing, legaltesting). URN BENZODIAZEPINE (test code = BENZOURN) NEGATIVE <200 ng/mL URN OPIATES (test code = OPIATURN) NEGATIVE <300 ng/mL URN PHENCYCLIDINE (PCP) (test code = PHENCURN) NEGATIVE <25 ng/ mL URN METHADONE (test code = METHAURN) NEGATIVE <300 ng/mL Urine Source? Clean CatchB-TYPE NATRIURETIC [id number] 13:12:00* Test Item Value Reference Range Interpretation Comments B-TYPE NATRIURETIC PEPTIDE (test code = BNP) 57.92 pgram/mL 0-100 N URINALYSIS [id number] 12:52:00* Test Item Value Reference Range Interpretation Comments UA COLOR (test code = COLU) YELLOW YELLOW UA APPEARANCE (test code = APPU) CLEAR CLEAR UA GLUCOSE DIPSTICK (test code = DGLUU) NEGATIVE mg/dL NEGATIVE UA BILIRUBIN DIPSTICK (test code = BILU) NEGATIVE mg/dL NEGATIVE UA KETONE DIPSTICK (test code = KETU) NEGATIVE mg/dL NEGATIVE UA SPECIFIC GRAVITY (test code = SGU) 1.028 1.001-1.035 UA BLOOD DIPSTICK (test code = NATA) Negative mg/dL NEGATIVE UA PH DIPSTICK (test code = JUAN MIGUEL) 7.0 5.0-8.0 UA PROTEIN DIPSTICK (test code = PROU) 20 (Trace) mg/dL NEGATIVE A UA UROBILINIOGEN DIPSTICK (test code = URO) 4.0 (2+) mg/dL NEGATIVE A UA NITRITE DIPSTICK (test code = ROMEO) NEGATIVE NEGATIVE UA LEUKOCYTE ESTERASE W REFLEX (test code = LEUUR) NEGATIVE Bart/uL NEGATIVE UA WBC (test code = WBCU) 0-5 per HPF 0-5 UA RBC (test code = RBCU) 3-5 #/HPF 0-5 UA EPITHELIAL CELLS (test code = EPIU) MOD per HPF FEW UA BACTERIA (test code = BACU) FEW #/HPF NONE A UA MUCUS (test code = MUCU) FEW #/LPF FEW Urine Source? Clean CatchDRUGS OF ABUSE SCREEN [id number] 12:52:00* Test Item Value Reference Range Interpretation Comments URN COCAINE (test code = COCAURN) <300 ng/mL URN CANNABINOIDS (test code = CANNABURN) <50 ng/mL URN AMPHETAMINE (test code = AMPHETURN) <1000 ng/mL URN BARBITURATE (test code = BARBITURN) <200 ng/mL URN BENZODIAZEPINE (test code = BENZOURN) <200 ng/mL URN OPIATES (test code = OPIATURN) <300 ng/mL URN PHENCYCLIDINE (PCP) (test code = PHENCURN) <25 ng/ mL URN METHADONE (test code = METHAURN) <300 ng/mL Urine Source? Clean CatchBASIC METABOLIC [id number] 12:51:00* Test Item Value Reference Range Interpretation Comments SODIUM (test code = NA) 144 mmol/L 136-145 N POTASSIUM (test code = K) 3.2 mmol/L 3.5-5.1 L CHLORIDE (test code = CL) 111.0 mmol/L 98-107 H CARBON DIOXIDE (test code = CO2) 26.0 mmol/L 21-32 N ANION GAP (test code = GAP) 10.2 10-20 N GLUCOSE (test code = GLU) 91 mg/dL 74-106 N BLOOD UREA NITROGEN (test code = BUN) 12 mg/dL 7-18 N GLOMERULAR FILTRATION RATE (test code = GFR) > 60 mL/min >=60 Estimated GFR by using Modified MDRD formula.Chronic kidney disease is defined as either kidney damageor GFR <60 mL/min/1.73 m2 for >3 months. CREATININE (test code = CREAT) 0.40 mg/dL 0.55-1.02 L Note change in reference range due to change in reagent. BUN/CREATININE RATIO (test code = BUN/CREA) 30.0 10-20 H CALCIUM (test code = CA) 8.7 mg/dL 8.5-10.1 N [id number] 12:51:00* Test Item Value Reference Range Interpretation Comments TROPONIN-I (test code = TROPI) 0.242 ng/mL 0-0.045 Results called to [id number] by V.[email or web address].[email or web address] 10/02/19 1251Critical results verified and read back by Nurse? YES PROTHROMBIN [id number] 12:38:00* Test Item Value Reference Range Interpretation Comments PROTHROMBIN TIME PATIENT (test code = PTP) 13.2 seconds 9.0-14.0 N INTERNATIONAL NORMAL RATIO (test code = INR) 1.1 0.8-1.2 N The therapeutic range for oral anticoagulant therapy formost indications is an international normalized ratio (INR)of between 2.0 and 3.0. The recommended therapeutic INRrange for various clinical situations is listed below: Clinical Situation INR range Pulmonary e mbolism treatment (2.0-3.0)Venous thrombosis treatmentVenous thrombosis prophylaxis (high risk surgery)Prevention of systemic embolism from: Acute myocardial infarction Valvular heart disease Atrial fibrillation Mechanical prosthetic heart valves (2.5-3.5) IS PATIENT ON ANTICOAGULANTS? NTHROMBOPLASTIN TIME [id number] 12:38:00* Test Item Value Reference Range Interpretation Comments THROMBOPLASTIN TIME PARTIAL (test code = PTT) 35.2 seconds 25.0-36. 5 N IS PATIENT ON ANTICOAGULANTS? NBASIC METABOLIC [id number] 12:36:00* Test Item Value Reference Range Interpretation Comments SODIUM (test code = NA) 144 mmol/L 136-145 N POTASSIUM (test code = K) 3.2 mmol/L 3.5-5.1 L CHLORIDE (test code = CL) 111.0 mmol/L 98-107 H CARBON DIOXIDE (test code = CO2) mmol/L 21-32 ANION GAP (test code = GAP) 10-20 GLUCOSE (test code = GLU) mg/dL 74-106 BLOOD UREA NITROGEN (test code = BUN) mg/dL 7-18 GLOMERULAR FILTRATION RATE (test code = GFR) mL/min >=60 CREATININE (test code = CREAT) mg/dL 0.55-1.02 BUN/CREATININE RATIO (test code = BUN/CREA) 10-20 CALCIUM (test code = CA) mg/dL 8.5-10.1 [id number] 12:36:00* Test Item Value Reference Range Interpretation Comments TROPONIN-I (test code = TROPI) ng/mL 0-0.045 - XR CHEST 1 [id number] 12:29:00 FAX: Josias Valiente [phone] [place]: St: PRE Name: SIMA LAI [facility] : [birth year] Age/S: 69/F Bentley Gallagher Unit #: [id number] Loc: DER[place]K [place], [place] [address] Phys: Josias Valiente MD Acct: [id number] Dis Date: Status: PRE ER PHONE #: [phone] Exam Date: 10/02/2019 1225 FAX #: [phone] Reason: CHEST PAIN EXAMS: CPT CODE: [id number] XR CHEST 1 V [id number] REASON FOR EXAM: CHEST PAIN EXAM ORDER DATE: 10/02/2019 11:38 AM Ordering: Josias Valiente MD Attending:Josias Valiente MD Location:[facility] PROCEDURE: - XR CHEST 1 V COMPARISON: 08/19/2018 FINDINGS: Portable AP frontal view of the chest obtained at 12:06 PM shows clear lungs without evidence of consolidation. There is no evidence of effusion. The heart size is within normal limits. Pulmonary vasculatur es are unremarkable. IMPRESSION: No active disease. at 1229 Reported and signed by: Braxton Ye M.D. CC: Josias Valiente MD Technologist: Mariam BETANCOURT(Mariam)Karla Peter(Mariam) Trnscrd Date/Time/By: 10/02/2019 (1092) : By: feliberto VILLANUEVA Orig Print D/T: S: 10/02/2019 (8476) P AGE 2 Signed Report CBC W/O [id number] 12:27:00* Test Item Value Reference Range Interpretation Comments WHITE BLOOD CELL (test code = WBC) 4.9 K/mm3 4.5-12.5 N RED BLOOD CELL (test code = RBC) 4.14 mill/mm3 3.7-5.2 N HEMOGLOBIN (test code = HGB) 13.8 gram/dL 11.5-15.5 N HEMATOCRIT (test code = HCT) 40.3 % 36.0-46.0 N MEAN CELL VOLUME (test code = MCV) 97.3 fL 80-98 N MEAN CELL HGB (test code = MCH) 33.3 picogram 27.0-33.0 H MEAN CELL HGB CONCETRATION (test code = MCHC) 34.2 gram/dL 33.0-36. 0 N RED CELL DISTRIBUTION WIDTH (test code = RDW) 13.2 % 11.6-16. 2 N PLATELET COUNT (test code = PLT) 148 K/mm3 150-450 L MEAN PLATELET VOLUME (test code = MPV) 9.7 fL 6.7-11.0 N CBC W/O [id number] 12:25:00* Test Item Value Reference Range Interpretation Comments WHITE BLOOD CELL (test code = WBC) K/mm3 4.5-12.5 RED BLOOD CELL (test code = RBC) mill/mm3 3.7-5.2 HEMOGLOBIN (test code = HGB) 13.8 gram/dL 11.5-15.5 N HEMATOCRIT (test code = HCT) 40.3 % 36.0-46.0 N MEAN CELL VOLUME (test code = MCV) fL 80-98 MEAN CELL HGB (test code = MCH) picogram 27.0-33.0 MEAN CELL HGB CONCETRATION (test code = MCHC) gram/dL 33.0-36. 0 RED CELL DISTRIBUTION WIDTH (test code = RDW) % 11.6-16. 2 PLATELET COUNT (test code = PLT) K/mm3 150-450 MEAN PLATELET VOLUME (test code = MPV) fL 6.7-11.0 COMPREHENSIVE METABOLIC [id number] 17:14:00* Test Item Value Reference Range Interpretation Comments SODIUM (test code = NA) 143 mmol/L 136-145 N POTASSIUM (test code = K) 3.2 mmol/L 3.5-5.1 L CHLORIDE (test code = CL) 111.0 mmol/L 98-107 H CARBON DIOXIDE (test code = CO2) 28.0 mmol/L 21-32 N ANION GAP (test code = GAP) 7.2 10-20 L GLUCOSE (test code = GLU) 89 mg/dL 74-106 N BLOOD UREA NITROGEN (test code = BUN) 8 mg/dL 7-18 N GLOMERULAR FILTRATION RATE (test code = GFR) > 60 mL/min >=60 Estimated GFR by using Modified MDRD formula.Chronic kidney disease is defined as either kidney damageor GFR <60 mL/min/1.73 m2 for >3 months. CREATININE (test code = CREAT) 0.40 mg/dL 0.55-1.02 L Note change in reference range due to change in reagent. BUN/CREATININE RATIO (test code = BUN/CREA) 20.0 10-20 N TOTAL PROTEIN (test code = PROT) 7.0 gram/dL 6.4-8.2 N ALBUMIN (test code = ALB) 2.8 g/dL 3.4-5.0 L GLOBULIN (test code = GLOB) 4.2 gram/dL 2.7-4.2 N ALBUMIN/GLOBULIN RATIO (test code = A/G) 0.7 0.75-1.50 L CALCIUM (test code = CA) 8.3 mg/dL 8.5-10.1 L BILIRUBIN TOTAL (test code = BILT) 1.10 mg/dL 0.0-1.0 H SGOT/AST (test code = AST) 51 IUnit/L 15-37 H SGPT/ALT (test code = ALT) 27 IUnit/L 12-78 N ALKALINE PHOSPHATASE TOTAL (test code = ALKP) 234 IUnit/L 45-117 H Note change in reference range due to change in reagent. LIPID PROFILE (CORONARY RISK)2019-09-17 17:14:00* Test Item Value Reference Range Interpretation Comments TRIGLYCERIDES (test code = TRIG) 106 mg/dL 20-150 N CHOLESTEROL (test code = CHOL) 142 mg/dL 0-200 N CHOLESTEROL/HDL RATIO (test code = CHOLHDL) 2.0 RATIO 0-4.9 N RISK ASSOCIATED WITH CHOL/HDL RATIOS: Risk Male Female1/2 AVERAGE 3.43 3.27AVERAGE 4.97 4.442X AVERAGE 9.55 7.053X AVERAGE 23.39 11.04 REFERENCE VALUE IS RELATED TO RISK LEVELS ASRECOMMENDED BY THE [facility]. HEART, LUNG, AND BLOOD INST. HDL CHOLESTEROL (test code = HDL) 55 mg/dL 40-60 N LIPOPROTEIN LDL (test code = LDL) 73 mg/dL 100-129 L Reference Interval: mg/dL mmol/L Optimal <100 <2.6Near/above optimal 100-129 2.6- 3.3Borderline High 130-159 3.4-4.1High 160-189 4.1-4.9Very High >=190 >=4.9========= This LDL result is a direct measurement.========= THYROID STIMULATING [id number] 17:14:00* Test Item Value Reference Range Interpretation Comments THYROID STIMULATING HORMONE (test code = TSH) 2.680 uIU/mL 0.36-3.7 4 N TSH REFERENCE RANGES: EUTHYROID: 0.35 - 4.3 mIU/mL HYPO : > 5.5 mIU/mL HYPER : < 0.35 mIU/mL COMPREHENSIVE METABOLIC [id number] 17:01:00* Test Item Value Reference Range Interpretation Comments SODIUM (test code = NA) 143 mmol/L 136-145 N POTASSIUM (test code = K) 3.2 mmol/L 3.5-5.1 L CHLORIDE (test code = CL) 111.0 mmol/L 98-107 H CARBON DIOXIDE (test code = CO2) mmol/L 21-32 ANION GAP (test code = GAP) 10-20 GLUCOSE (test code = GLU) mg/dL 74-106 BLOOD UREA NITROGEN (test code = BUN) mg/dL 7-18 GLOMERULAR FILTRATION RATE (test code = GFR) mL/min >=60 CREATININE (test code = CREAT) mg/dL 0.55-1.02 BUN/CREATININE RATIO (test code = BUN/CREA) 10-20 TOTAL PROTEIN (test code = PROT) gram/dL 6.4-8.2 ALBUMIN (test code = ALB) g/dL 3.4-5.0 GLOBULIN (test code = GLOB) gram/dL 2.7-4.2 ALBUMIN/GLOBULIN RATIO (test code = A/G) 0.75-1.50 CALCIUM (test code = CA) mg/dL 8.5-10.1 BILIRUBIN TOTAL (test code = BILT) mg/dL 0.0-1.0 SGOT/AST (test code = AST) IUnit/L 15-37 SGPT/ALT (test code = ALT) IUnit/L 12-78 ALKALINE PHOSPHATASE TOTAL (test code = ALKP) IUnit/L 45-117 LIPID PROFILE (CORONARY RISK)2019-09-17 17:01:00* Test Item Value Reference Range Interpretation Comments TRIGLYCERIDES (test code = TRIG) mg/dL 20-150 CHOLESTEROL (test code = CHOL) mg/dL 0-200 CHOLESTEROL/HDL RATIO (test code = CHOLHDL) RATIO 0-4.9 HDL CHOLESTEROL (test code = HDL) mg/dL 40-60 LIPOPROTEIN LDL (test code = LDL) mg/dL 100-129 THYROID STIMULATING [id number] 17:01:00* Test Item Value Reference Range Interpretation Comments THYROID STIMULATING HORMONE (test code = TSH) uIU/mL 0.36-3.7 4 [id number] 16:55:00* Test Item Value Reference Range Interpretation Comments GLYCOSYLATED HEMOGLOBIN (HA1C) (test code = GLYHGB) 4.9 % HbA1 SUGGESTED DIAGNOSIS: HbA1C (%) Diabetic >6.4Prediabetes 5.7 - 6.4Normal <5.7 ESTIMATED AVERAGE GLUCOSE (test code = EAG) 94 MG/DL URINALYSIS [id number] 16:44:00* Test Item Value Reference Range Interpretation Comments UA COLOR (test code = COLU) YELLOW YELLOW UA APPEARANCE (test code = APPU) CLEAR CLEAR UA GLUCOSE DIPSTICK (test code = DGLUU) NEGATIVE mg/dL NEGATIVE UA BILIRUBIN DIPSTICK (test code = BILU) NEGATIVE mg/dL NEGATIVE UA KETONE DIPSTICK (test code = KETU) NEGATIVE mg/dL NEGATIVE UA SPECIFIC GRAVITY (test code = SGU) 1.023 1.001-1.035 UA BLOOD DIPSTICK (test code = NATA) 0.03 mg/dL (Trace) mg/dL NEGATI VE A UA PH DIPSTICK (test code = JUAN MIGUEL) 7.0 5.0-8.0 UA PROTEIN DIPSTICK (test code = PROU) 20 (Trace) mg/dL NEGATIVE A UA UROBILINIOGEN DIPSTICK (test code = URO) 8.0 (3+) mg/dL NEGATIVE A UA NITRITE DIPSTICK (test code = ROMEO) NEGATIVE NEGATIVE UA LEUKOCYTE ESTERASE W REFLEX (test code = LEUUR) NEGATIVE Bart/uL NEGATIVE UA WBC (test code = WBCU) 0-5 per HPF 0-5 UA RBC (test code = RBCU) 0-2 #/HPF 0-5 UA EPITHELIAL CELLS (test code = EPIU) MOD per HPF FEW UA BACTERIA (test code = BACU) NONE SEEN #/HPF NONE UA MUCUS (test code = MUCU) FEW #/LPF FEW URINALYSIS [id number] 16:38:00* Test Item Value Reference Range Interpretation Comments UA COLOR (test code = COLU) YELLOW YELLOW UA APPEARANCE (test code = APPU) CLEAR CLEAR UA GLUCOSE DIPSTICK (test code = DGLUU) NEGATIVE mg/dL NEGATIVE UA BILIRUBIN DIPSTICK (test code = BILU) NEGATIVE mg/dL NEGATIVE UA KETONE DIPSTICK (test code = KETU) NEGATIVE mg/dL NEGATIVE UA SPECIFIC GRAVITY (test code = SGU) 1.023 1.001-1.035 UA BLOOD DIPSTICK (test code = NATA) 0.03 mg/dL (Trace) mg/dL NEGATI VE A UA PH DIPSTICK (test code = JUAN MIGUEL) 7.0 5.0-8.0 UA PROTEIN DIPSTICK (test code = PROU) 20 (Trace) mg/dL NEGATIVE A UA UROBILINIOGEN DIPSTICK (test code = URO) 8.0 (3+) mg/dL NEGATIVE A UA NITRITE DIPSTICK (test code = ROMEO) NEGATIVE NEGATIVE UA LEUKOCYTE ESTERASE W REFLEX (test code = LEUUR) NEGATIVE Bart/uL NEGATIVE UA WBC (test code = WBCU) per HPF 0-5 UA RBC (test code = RBCU) per HPF 0-5 UA EPITHELIAL CELLS (test code = EPIU) per HPF Few UA BACTERIA (test code = BACU) per HPF NONE URINALYSIS [id number] 16:38:00* Test Item Value Reference Range Interpretation Comments UA COLOR (test code = COLU) YELLOW YELLOW UA APPEARANCE (test code = APPU) CLEAR CLEAR UA GLUCOSE DIPSTICK (test code = DGLUU) NEGATIVE mg/dL NEGATIVE UA BILIRUBIN DIPSTICK (test code = BILU) NEGATIVE mg/dL NEGATIVE UA KETONE DIPSTICK (test code = KETU) NEGATIVE mg/dL NEGATIVE UA SPECIFIC GRAVITY (test code = SGU) 1.023 1.001-1.035 UA BLOOD DIPSTICK (test code = NATA) 0.03 mg/dL (Trace) mg/dL NEGATI VE A UA PH DIPSTICK (test code = JUAN MIGUEL) 7.0 5.0-8.0 UA PROTEIN DIPSTICK (test code = PROU) 20 (Trace) mg/dL NEGATIVE A UA UROBILINIOGEN DIPSTICK (test code = URO) 8.0 (3+) mg/dL NEGATIVE A UA NITRITE DIPSTICK (test code = ROMEO) NEGATIVE NEGATIVE UA LEUKOCYTE ESTERASE W REFLEX (test code = LEUUR) NEGATIVE Bart/uL NEGATIVE UA WBC (test code = WBCU) per HPF 0-5 UA RBC (test code = RBCU) per HPF 0-5 UA EPITHELIAL CELLS (test code = EPIU) per HPF Few UA BACTERIA (test code = BACU) per HPF NONE CBC W/AUTO [id number] 16:34:00* Test Item Value Reference Range Interpretation Comments WHITE BLOOD CELL (test code = WBC) 5.2 K/mm3 4.5-12.5 N RED BLOOD CELL (test code = RBC) 4.13 mill/mm3 3.7-5.2 N HEMOGLOBIN (test code = HGB) 13.7 gram/dL 11.5-15.5 N HEMATOCRIT (test code = HCT) 40.1 % 36.0-46.0 N MEAN CELL VOLUME (test code = MCV) 97.1 fL 80-98 N MEAN CELL HGB (test code = MCH) 33.2 picogram 27.0-33.0 H MEAN CELL HGB CONCETRATION (test code = MCHC) 34.2 gram/dL 33.0-36. 0 N RED CELL DISTRIBUTION WIDTH (test code = RDW) 13.1 % 11.6-16. 2 N RED CELL DISTRIBUTION WIDTH SD (test code = RDW-SD) 47.0 fL 37 .0-51.0 N PLATELET COUNT (test code = PLT) 151 K/mm3 150-450 N MEAN PLATELET VOLUME (test code = MPV) 9.8 fL 6.7-11.0 N NEUTROPHIL % (test code = NT%) 30.3 % 39.0-69.0 L IMMATURE GRANULOCYTE % (test code = IG%) 0.2 % 0.0-5.0 N LYMPHOCYTE % (test code = LY%) 56.5 % 25.0-55.0 H MONOCYTE % (test code = MO%) 9.4 % 0.0-10.0 N EOSINOPHIL % (test code = EO%) 2.3 % 0.0-5.0 N BASOPHIL % (test code = BA%) 1.3 % 0.0-1.0 H NUCLEATED RBC % (test code = NRBC%) 0.0 % 0-0 N NEUTROPHIL # (test code = NT#) 1.57 K/mm3 1.8-7.7 L IMMATURE GRANULOCYTE # (test code = IG#) 0.01 x10 3/uL 0-0.03 N LYMPHOCYTE # (test code = LY#) 2.94 K/mm3 1.0-5.0 N MONOCYTE # (test code = MO#) 0.49 K/mm3 0-0.8 N EOSINOPHIL # (test code = EO#) 0.12 K/mm3 0.0-0.5 N BASOPHIL # (test code = BA#) 0.07 K/mm3 0.0-0.2 N NUCLEATED RBC # (test code = NRBC#) 0.00 K/mm3 0.0-0.1 N CBC W/AUTO [id number] 16:33:00* Test Item Value Reference Range Interpretation Comments WHITE BLOOD CELL (test code = WBC) K/mm3 4.5-12.5 RED BLOOD CELL (test code = RBC) mill/mm3 3.7-5.2 HEMOGLOBIN (test code = HGB) 13.7 gram/dL 11.5-15.5 N HEMATOCRIT (test code = HCT) 40.1 % 36.0-46.0 N MEAN CELL VOLUME (test code = MCV) fL 80-98 MEAN CELL HGB (test code = MCH) picogram 27.0-33.0 MEAN CELL HGB CONCETRATION (test code = MCHC) gram/dL 33.0-36. 0 RED CELL DISTRIBUTION WIDTH (test code = RDW) % 11.6-16. 2 RED CELL DISTRIBUTION WIDTH SD (test code = RDW-SD) fL 37 .0-51.0 PLATELET COUNT (test code = PLT) K/mm3 150-450 MEAN PLATELET VOLUME (test code = MPV) fL 6.7-11.0 NEUTROPHIL % (test code = NT%) % 39.0-69.0 IMMATURE GRANULOCYTE % (test code = IG%) % 0.0-5.0 LYMPHOCYTE % (test code = LY%) % 25.0-55.0 MONOCYTE % (test code = MO%) % 0.0-10.0 EOSINOPHIL % (test code = EO%) % 0.0-5.0 BASOPHIL % (test code = BA%) % 0.0-1.0 NEUTROPHIL # (test code = NT#) K/mm3 1.8-7.7 LYMPHOCYTE # (test code = LY#) K/mm3 1.0-5.0 MONOCYTE # (test code = MO#) K/mm3 0-0.8 EOSINOPHIL # (test code = EO#) K/mm3 0.0-0.5 BASOPHIL # (test code = BA#) K/mm3 0.0-0.2 CHEST 2 [id number] 17:13:00 [place] [address] Patient Name: SIMA HARRIS MR #: [id number] : 1950 Age/Sex: 68/F Req #: [id number] Adm Physician: Ordered by: DAISY ROLDAN MD Report #: [id number] Location: OR Room/Bed: Procedure: [id number] DX/CHEST 2 VIEWS Exam Date: 01/29/19 Exam Time: 1701 REPORT STATUS: Signed EXAMINATION: CHEST 2 VIEWS INDICATION: Shortness of breath, asthma COMPARISON: None FINDINGS: TUBES and LINES: None. LUNGS: The lungs are moder ately inflated. No focal consolidation or pulmonary edema. PLEURA: No pl eural effusion or pneumothorax. HEART AND MEDIASTINUM: The cardiomediastin al silhouette is normal in size and contour. BONES AND SOFT TISSUES: No a cute fracture or dislocation. Mild degenerative changes of the visualized spin e. UPPER ABDOMEN: No free air under the diaphragm. IMPRESSION: No f ocal pneumonia or pulmonary edema. Signed by: Rowan Edward MD on 01/29/2019 5 :15 PM Dictated By: ROWAN EDWARD MD 14 Transcribed By: GERALDINE on 01/29/191714 COPY TO: DAISY EVERETT MD - HEPA IMAG INCL GB W [id number] 11:43:00 [place]: St: REG Name: Mariam REYESOSIMA PAYNE [facility] : [birth year] Age/S: 68/F [address] [facility] Unit #: [id number] Loc: [place] [address] Phys: Polina Irizarry MD Acct: [id number] Dis Date: Status: REG CLI PHONE #: [phone] Exam Date: 11/25/2018 1024 FAX #: [phone] Reason: R14.0 EXAMS: CPT CODE: [id number] HEPA IMAG INCL GB W PHA 33716 TECHNIQUE: 5.5 mCi technetium 99 1.8 mg Kinevac COMPARISON: Ultrasound abdomen 10/16/2018. CT abdomen and pelvis 05/10/2018 FINDINGS: Liver: Uniform distrib ution of activity in liver. Gallbladder and biliary excretion: Gallbladder is visualized at 30 mins. Bowel activity is seen at 15 mins, consistent with excretion of radionuclide through biliary syst em. Gallbladder ejection fraction: Calculated gallbladder ejection fraction at 9.5 minutes is 36 %. The gallbladder is refilled with a ctivity at 30 minutes. IMPRESSION: No evidence of biliar y obstruction or cystic duct obstruction. Gallbladder ejection fraction within normal limits at 9.5 minutes. E lectronically Signed by Jeffrey Tripathi M.D. on 11/25/2018 at 1143 Reported and signed by: Jeffrey Tripathi M.D. CC: Technologist: SCOTTIE SALDANA Trnscrd Date/Time/By: 11/25/2018 (1143) : By: Lenny ADAMSON Orig Print D/T: S: 11/25/2018 (1146) PAG E 1 Signed Report - US ABDOMEN [id number] 16:51:00 Name: SIMA HARRIS [facility] : 1950 Age/S: 68 / F [address] [facility] Unit #: [id number] Loc: [place] [address] Phys: Polina Irizarry MD Acct: [id number] Dis Date: Status: REG CLI PHONE #: [phone] Exam Date: 10/16/2018 1610 FAX #: [phone] Reason: BLOATED ABD EXAMS: CPT CODE: [id number] US ABDOMEN COMPLETE [id number] REASON FOR EXAM: BLOATED ABD EXAM ORDER DATE: 10/16/2018 3:26 PM Attending M.Dev.: Polina Mejia MD PROCEDURE: - US ABDOMEN COMPLETE FINDINGS: [...] Ye M.D. CC: Technologist: Maeve Macdonald RDMS Trnwab Date/Time: 10/16/2018 (1650) tMARY Orig Print D/T: S: 10/16/2018 (6884) Probe: PAGE 1 Signed Report SED RATE 2018-08-19 22:15:00* Test Item Value Reference Range Interpretation Comments SED RATE (test code = SEDW) 22 mm/hr 0-30 N SED [id number] 22:15:00* Test Item Value Reference Range Interpretation Comments SED RATE (test code = SEDW) 22 mm/hr 0-30 COMPREHENSIVE METABOLIC [id number] 19:16:00* Test Item Value Reference Range Interpretation Comments SODIUM (test code = NA) 143 mmol/L 136-145 N POTASSIUM (test code = K) 3.0 mmol/L 3.5-5.1 L CHLORIDE (test code = CL) 106.0 mmol/L 98-107 N CARBON DIOXIDE (test code = CO2) 28.0 mmol/L 21-32 N ANION GAP (test code = GAP) 12.0 10-20 N GLUCOSE (test code = GLU) 82 mg/dL 74-106 N BLOOD UREA NITROGEN (test code = BUN) 6 mg/dL 7-18 L GLOMERULAR FILTRATION RATE (test code = GFR) > 60 mL/min >=60 Estimated GFR by using Modified MDRD formula.Chronic kidney disease is defined as either kidney damageor GFR <60 mL/min/1.73 m2 for >3 months. CREATININE (test code = CREAT) 0.50 mg/dL 0.55-1.02 L Note change in reference range due to change in reagent. BUN/CREATININE RATIO (test code = BUN/CREA) 12.6 10-20 N TOTAL PROTEIN (test code = PROT) 7.8 gram/dL 6.4-8.2 N ALBUMIN (test code = ALB) 3.3 g/dL 3.4-5.0 L GLOBULIN (test code = GLOB) 4.5 gram/dL 2.7-4.2 H ALBUMIN/GLOBULIN RATIO (test code = A/G) 0.7 0.75-1.50 L CALCIUM (test code = CA) 8.5 mg/dL 8.5-10.1 N BILIRUBIN TOTAL (test code = BILT) 1.80 mg/dL 0.0-1.0 H SGOT/AST (test code = AST) 73 IUnit/L 15-37 H SGPT/ALT (test code = ALT) 35 IUnit/L 12-78 N ALKALINE PHOSPHATASE TOTAL (test code = ALKP) 151 IUnit/L 45-117 H Note change in reference range due to change in reagent. THYROID STIMULATING [id number] 19:16:00* Test Item Value Reference Range Interpretation Comments THYROID STIMULATING HORMONE (test code = TSH) 2.200 uIU/mL 0.36-3.7 4 N TSH REFERENCE RANGES: EUTHYROID: 0.35 - 4.3 mIU/mL HYPO : > 5.5 mIU/mL HYPER : < 0.35 mIU/mL COMPREHENSIVE METABOLIC [id number] 19:15:00* Test Item Value Reference Range Interpretation Comments SODIUM (test code = NA) 143 mmol/L 136-145 N POTASSIUM (test code = K) 3.0 mmol/L 3.5-5.1 L CHLORIDE (test code = CL) 106.0 mmol/L 98-107 N CARBON DIOXIDE (test code = CO2) mmol/L 21-32 ANION GAP (test code = GAP) 10-20 GLUCOSE (test code = GLU) mg/dL 74-106 BLOOD UREA NITROGEN (test code = BUN) mg/dL 7-18 GLOMERULAR FILTRATION RATE (test code = GFR) mL/min >=60 CREATININE (test code = CREAT) mg/dL 0.55-1.02 BUN/CREATININE RATIO (test code = BUN/CREA) 10-20 TOTAL PROTEIN (test code = PROT) gram/dL 6.4-8.2 ALBUMIN (test code = ALB) g/dL 3.4-5.0 GLOBULIN (test code = GLOB) gram/dL 2.7-4.2 ALBUMIN/GLOBULIN RATIO (test code = A/G) 0.75-1.50 CALCIUM (test code = CA) mg/dL 8.5-10.1 BILIRUBIN TOTAL (test code = BILT) mg/dL 0.0-1.0 SGOT/AST (test code = AST) IUnit/L 15-37 SGPT/ALT (test code = ALT) IUnit/L 12-78 ALKALINE PHOSPHATASE TOTAL (test code = ALKP) IUnit/L 45-117 THYROID STIMULATING [id number] 19:15:00* Test Item Value Reference Range Interpretation Comments THYROID STIMULATING HORMONE (test code = TSH) uIU/mL 0.36-3.7 4 CBC W/AUTO [id number] 18:31:00* Test Item Value Reference Range Interpretation Comments WHITE BLOOD CELL (test code = WBC) 5.5 K/mm3 4.5-12.5 N RED BLOOD CELL (test code = RBC) 4.63 mill/mm3 3.7-5.2 N HEMOGLOBIN (test code = HGB) 14.7 gram/dL 11.5-15.5 N HEMATOCRIT (test code = HCT) 44.5 % 36.0-46.0 N MEAN CELL VOLUME (test code = MCV) 96.1 fL 80-98 N MEAN CELL HGB (test code = MCH) 31.7 picogram 27.0-33.0 N MEAN CELL HGB CONCETRATION (test code = MCHC) 33.0 gram/dL 33.0-36. 0 N RED CELL DISTRIBUTION WIDTH (test code = RDW) 12.8 % 11.6-16. 2 N RED CELL DISTRIBUTION WIDTH SD (test code = RDW-SD) 45.5 fL 37 .0-51.0 N PLATELET COUNT (test code = PLT) 154 K/mm3 150-450 N MEAN PLATELET VOLUME (test code = MPV) 10.3 fL 6.7-11.0 N NEUTROPHIL % (test code = NT%) 40.4 % 39.0-69.0 N IMMATURE GRANULOCYTE % (test code = IG%) 0.2 % 0.0-5.0 N LYMPHOCYTE % (test code = LY%) 41.1 % 25.0-55.0 N MONOCYTE % (test code = MO%) 13.6 % 0.0-10.0 H EOSINOPHIL % (test code = EO%) 3.6 % 0.0-5.0 N BASOPHIL % (test code = BA%) 1.1 % 0.0-1.0 H NUCLEATED RBC % (test code = NRBC%) 0.0 % 0-0 N NEUTROPHIL # (test code = NT#) 2.23 K/mm3 1.8-7.7 N IMMATURE GRANULOCYTE # (test code = IG#) 0.01 x10 3/uL 0-0.03 N LYMPHOCYTE # (test code = LY#) 2.27 K/mm3 1.0-5.0 N MONOCYTE # (test code = MO#) 0.75 K/mm3 0-0.8 N EOSINOPHIL # (test code = EO#) 0.20 K/mm3 0.0-0.5 N BASOPHIL # (test code = BA#) 0.06 K/mm3 0.0-0.2 N NUCLEATED RBC # (test code = NRBC#) 0.00 K/mm3 0.0-0.1 N - XR CHEST 2 [id number] 17:34:00 FAX: Anival Graves MD [phone] [place]: O St: REG Name: SIMA LAI [facility] : [birth year] Age/S: 68/F [address] Unit #: [id number] Loc: [facility] [place] [address] Phys: Anival Echols MD Acct: [id number] Dis Date: Status: REG CLI PHONE #: [phone] Exam Date: 08/19/2018 1731 FAX #: [phone] Reason: J06.9,J30.9,K21.9,G47.33,R06.00 EXAMS: CPT CODE: [id number] XR CHEST 2 V 60215 REASON FOR EXAM: J06.9,J30 .9,K21.9,G47.33,R06.00 Exam Order [...] grossly intact. IMPRESSION: No active disease. at 5966 Reported and signed by: Clint Ye M.D. CC: Anival Echols MD Technologist: RT Latrell(Mariam) Trnscrd Date/Time/By: 08/19/2018 (0206) : By: DimasVTL Orig Print D /T: S: 08/19/2018 (7182) PAGE 1 S igned Report HEMOGLOBIN [id number] 21:09:00* Test Item Value Reference Range Interpretation Comments HEMOGLOBIN A1C (BEAKER) (test code = 368) 4.6 % 4.3-6.1 B-TYPE NATRIURETIC FACTOR (BNP)2017-03-21 16:53:00* Test Item Value Reference Range Interpretation Comments B-TYPE NATRIURETIC PEPTIDE (BEAKER) (test code = 700) 131 pg/mL 0-100 H BASIC METABOLIC [id number] 16:49:00* Test Item Value Reference Range Interpretation Comments SODIUM (BEAKER) (test code = 381) 140 meq/L 136-145 POTASSIUM (BEAKER) (test code = 379) 4.5 meq/L 3.5-5.1 Specimen markedly hemolyzed CHLORIDE (BEAKER) (test code = 382) 107 meq/L 98-107 CO2 (BEAKER) (test code = 355) 25 meq/L 22-29 BLOOD UREA NITROGEN (BEAKER) (test code = 354) 7 mg/dL 7-21 CREATININE (BEAKER) (test code = 358) 0.60 mg/dL 0.57-1.25 Specimen markedly hemolyzed GLUCOSE RANDOM (BEAKER) (test code = 652) 77 mg/dL 70-105 CALCIUM (BEAKER) (test code = 697) 9.5 mg/dL 8.4-10.2 EGFR (BEAKER) (test code = 1092) 100 mL/min/1.73 sq m ESTIMATED GFR IS NOT ACCURATE CREATININE CLEARANCE IN PREDICTING GLOMERULAR FILTRATION RATE. ESTIMATED GFR IS NOT APPLICABLE FOR DIALYSIS PATIENTS. LIPID [id number] 16:49:00* Test Item Value Reference Range Interpretation Comments TRIGLYCERIDES (BEAKER) (test code = 540) 105 mg/dL Specimen markedly hemolyzed CHOLESTEROL (BEAKER) (test code = 631) 154 mg/dL Specimen markedly hemolyzed HDL CHOLESTEROL (BEAKER) (test code = 976) 49 mg/dL LDL CHOLESTEROL CALCULATED (BEAKER) (test code = 633) 84 mg/dL Triglyceride Reference Range: Low Risk <150 Borderline 150-199 High Risk 200-499 Very High Risk >=500Cholesterol Reference Range: Low Risk <200 Borderline 200-239 High Risk >240HDL Cholesterol Reference Range: Low Risk >=60 High Risk <40LDL Cholesterol Reference Range: Optimal <100 Near Optimal 100-129 Borderline 130-159 High 160-189 Very High >=190 HEPATIC FUNCTION [id number] 16:49:00* Test Item Value Reference Range Interpretation Comments TOTAL PROTEIN (BEAKER) (test code = 770) 8.9 gm/dL 6.0-8.3 H Specimen markedly hemolyzed ALBUMIN (BEAKER) (test code = 1145) 3.7 g/dL 3.5-5.0 Specimen markedly hemolyzed BILIRUBIN TOTAL (BEAKER) (test code = 377) 1.7 mg/dL 0.2-1.2 H Specimen markedly hemolyzed BILIRUBIN DIRECT (BEAKER) (test code = 706) 0.4 mg/dL 0.1-0.5 Specimen markedly hemolyzed ALKALINE PHOSPHATASE (BEAKER) (test code = 346) 147 U/L 40-150 AST (SGOT) (BEAKER) (test code = 353) 102 U/L 5-34 H Specimen markedly hemolyzed ALT (SGPT) (BEAKER) (test code = 347) 47 U/L 6-55 Specimen markedly hemolyzed CBC W/PLT COUNT & AUTO [id number] 16:30:00* Test Item Value Reference Range Interpretation Comments WHITE BLOOD CELL COUNT (BEAKER) (test code = 775) 5.9 K/ L 3.5- 10.5 RED BLOOD CELL COUNT (BEAKER) (test code = 761) 4.92 M/ L 3.93-5 .22 HEMOGLOBIN (BEAKER) (test code = 410) 16.3 GM/DL 11.2-15.7 H HEMATOCRIT (BEAKER) (test code = 411) 47.4 % 34.1-44.9 H MEAN CORPUSCULAR VOLUME (BEAKER) (test code = 753) 96.3 fL 79. 4-94.8 H MEAN CORPUSCULAR HEMOGLOBIN (BEAKER) (test code = 751) 33.1 pg 25.6-32.2 H MEAN CORPUSCULAR HEMOGLOBIN CONC (BEAKER) (test code = 752) 34.4 GM/DL 32.2-35.5 RED CELL DISTRIBUTION WIDTH (BEAKER) (test code = 412) 12.3 % 11.7-14.4 PLATELET COUNT (BEAKER) (test code = 756) 170 K/CU MM 150-450 MEAN PLATELET VOLUME (BEAKER) (test code = 754) 10.5 fL 9.4-12 .3 NUCLEATED RED BLOOD CELLS (BEAKER) (test code = 413) 0 /100 WBC 0 -0 NEUTROPHILS RELATIVE PERCENT (BEAKER) (test code = 429) 43 % LYMPHOCYTES RELATIVE PERCENT (BEAKER) (test code = 430) 47 % MONOCYTES RELATIVE PERCENT (BEAKER) (test code = 431) 8 % EOSINOPHILS RELATIVE PERCENT (BEAKER) (test code = 432) 2 % BASOPHILS RELATIVE PERCENT (BEAKER) (test code = 437) 1 % NEUTROPHILS ABSOLUTE COUNT (BEAKER) (test code = 670) 2.52 K/ L 1.56-6.13 LYMPHOCYTES ABSOLUTE COUNT (BEAKER) (test code = 414) 2.76 K/ L 1.18-3.74 MONOCYTES ABSOLUTE COUNT (BEAKER) (test code = 415) 0.47 K/ L 0. 24-0.36 H EOSINOPHILS ABSOLUTE COUNT (BEAKER) (test code = 416) 0.10 K/ L 0.04-0.36 BASOPHILS ABSOLUTE COUNT (BEAKER) (test code = 417) 0.06 K/ L 0. 01-0.08 IMMATURE GRANULOCYTES-RELATIVE PERCENT (BEAKER) (test code = 2801) 0 % 0-1 (MANUAL DIFFERENTIAL)2017-03-21 16:30:00* Test Item Value Reference Range Interpretation Comments TOTAL COUNTED (BEAKER) (test code = 1351) WBC MORPHOLOGY (BEAKER) (test code = 487) Normal PLT MORPHOLOGY (BEAKER) (test code = 486) Normal RBC MORPHOLOGY (BEAKER) (test code = 762) Normal
--- OUTSIDE RECORDS SUMMARY | 2019-11-26 07:16 | XMS REPORT | Clinical Summary ---
Author Author ANTONIO [facility] Address Unknown Phone Unavailable Care Team Providers Care Thermostat Machine Tender Name Role Phone HankJackie, Polina PCP Unavailable Allergies No Known Allergies Medications End Date Status Medication Sig Dispensed Refills Start Date Active furosemide (LASIX) 40 MG daily 0 10/04 tablet 0 Active losartan (COZAAR) 25 MG daily 0 tablet 0 Active spironolactone daily 0 (ALDACTONE) 25 MG tablet 0 Active metoclopramide (REGLAN) 5 daily 0 09/13 MG tablet 0 Active metoprolol succinate 0.5 tablet 0 (TOPROL-XL) 25 MG 24 hr thrice daily 8 tablet Active montelukast (SINGULAIR) at bedtime 0 10 mg tablet 8 Active phenobarb/hyoscy/atropine . 0 /scop ( ORAL) Active pantoprazole (PROTONIX) 0 40 MG tablet 8 Active lactulose (CHRONULAC) 20 Take 15 mLs 450 mL 2 0 gram/30 mL (10 g total) 0 solutionIndications: by mouth once Other cirrhosis of liver in morning. (HCC) Active atorvastatin (LIPITOR) 40 Take 40 mg by 0 MG tablet mouth daily. 11/02/2019 valACYclovir (VALTREX) Take 1 tablet 21 tablet 0 0 1000 MG (1,000 mg 0 tabletIndications: Herpes total) by zoster without mouth 3 complication (three) times daily for 7 days. Active Problems Problem Noted Date Portal hypertension 10/26/2019 Hepatic encephalopathy 10/26/2019 Cirrhosis Class 2 obesity due to excess calories with body mass index (BMI) of 38.0 to 38.9 in adult Metabolic syndrome Tubular adenoma Resolved Problems Problem Noted Date Resolved Date Obesity 10/26/2019 Encounters Care Team Description Date Type Specialty Celeste Del Angel MA 10/30/2019 Abstract Hepatology Oliva Brennan MA 10/29/2019 Abstract Hepatology Oliva Brennan MA 10/29/2019 Documentation Hepatology Vincenzo Escobar MD Other cirrhosis of liver (HCC) (Primary Dx); Immunity status testing; Herpes zoster without complication; Class 2 obesity due to excess calories without serious comorbidity with body mass index (BMI) of 38.0 to 38.9 in adult; Metabolic syndrome; Tubular adenoma; Class 1 obesity due to excess calories with serious comorbidity and body mass index (BMI) of 34.0 to 34.9 in adult; Portal hypertension (HCC); Hepatic encephalopathy (HCC) 10/26/2019 Office Visit Hepatology Aruna Ceja Appointment 10/26/2019 Telephone Hepatology Celina Araya 10/23/2019 Documentation Hepatology after 11/25/2018 Family History Medical History Relation Name Comments Alzheimer's disease Father Diabetes Father Cancer Mother site unknown (intra -abdominal) Relation Name Status Comments Father Mother Social History Date Tobacco Use Types Packs/Day Years Used Never Smoker Smokeless Tobacco: Never Used Alcohol Use Drinks/Week oz/Week Comments No Sex Assigned at Date Recorded Not on file Industry Job Start Date Occupation Not on file Not on file Not on file Travel End Travel History Travel Start No recent travel history available. Last Filed Vital Signs Time Taken Vital Sign Reading 10/26/2019 12:54 PM CDT Blood Pressure 139/69 10/26/2019 12:54 PM CDT Pulse 65 10/26/2019 12:54 PM CDT Temperature 36.3 C (97.4 F) 10/26/2019 12:54 PM CDT Respiratory Rate 16 10/26/2019 12:54 PM CDT Oxygen Saturation 97% - Inhaled Oxygen - Concentration 10/26/2019 12:54 PM CDT Weight 93 kg (205 lb) 10/26/2019 12:54 PM CDT Height 154.9 cm (5' 1") 10/26/2019 12:54 PM CDT Body Mass Index 38.73 Plan of Treatment Care Team Description Date Type Specialty Vincenzo Escobar MD [address] [address] 12/16/2019 Office Visit Hepatology Health Maintenance Due Date Last Done Comments BREAST CANCER SCREENING 1950 COLON CANCER SCREENING 1950 COLONOSCOPY PNEUMOCOCCAL 65+ 2016 LOW/MEDIUM RISK (1 of 2 - PCV13) Medicare IPPE (WELCOME TO 07/15/2019 MEDICARE) INFLUENZA VACCINE (Season 03/15/2020 Ended) Procedures Comments Procedure Name Priority Date/Time Associated Diag nosis CBC W/PLT COUNT & AUTO Routine 10/26/2019 Other c irrhosis of liver DIFFERENTIAL 2:58 PM CDT (HCC) PROTHROMBIN TIME/INR Routine 10/26/2019 Other cir rhosis of liver 2:58 PM CDT (HCC) CBC W/PLT COUNT & AUTO Routine 10/26/2019 Other c irrhosis of liver DIFFERENTIAL 2:58 PM CDT (HCC) HEPATIC FUNCTION PANEL Routine 10/26/2019 Other c irrhosis of liver 2:58 PM CDT (HCC) BASIC METABOLIC PANEL (7) Routine 10/26/2019 Othe r cirrhosis of liver 2:58 PM CDT (HCC) HEPATITIS B SURFACE Routine 10/26/2019 Immunity s tatus testing ANTIBODY 2:58 PM CDT HEPATITIS B CORE Routine 10/26/2019 Immunity stat us testing ANTIBODY, TOTAL 2:58 PM CDT HEPATITIS A ANTIBODY, IGG Routine 10/26/2019 Immu nity status testing 2:58 PM CDT after 11/25/2018 Results * Hepatitis A Antibody, IgG (HS Only) (10/26/2019 2:58 PM CDT) Hep A IgG Reactive (A) Nonreactive [facility] Specimen Blood Narrative Performed At Credit Counselor ID - BS [facility] Performing Organization Address City/State/Zipcode Ph one Number [address] [place] [address] [facility] * CBC with platelet count + automated diff (10/26/2019 2:58 PM CDT) WBC 5.2 3.5 - 10.5 K/L [facility] RBC 4.78 3.93 - 5.22 M/L [facility] Hemoglobin 15.4 11.2 - 15.7 GM/DL [facility] Hematocrit 44.8 34.1 - 44.9 % [facility] MCV 93.7 79.4 - 94.8 fL [facility] MCH 32.2 25.6 - 32.2 pg [facility] MCHC 34.4 32.2 - 35.5 GM/DL [facility] RDW 12.1 11.7 - 14.4 % [facility] Platelets 146 (L) 150 - 450 K/CU MM [facility] MPV 10.5 9.4 - 12.3 fL [facility] nRBC 0 0 - 0 /100 WBC [facility] % Neutros 47 % [facility] % Lymphs 38 % [facility] % Monos 12 % [facility] % Eos 1 % [facility] % Baso 1 % [facility] # Neutros 2.44 1.56 - 6.13 K/L [facility] # Lymphs 1.99 1.18 - 3.74 K/L [facility] # Monos 0.62 (H) 0.24 - 0.36 K/L [facility] # Eos 0.06 0.04 - 0.36 K/L [facility] # Baso 0.06 0.01 - 0.08 K/L [facility] Immature 0 0 - 1 % [facility] Granulocytes-Relative [facility] Specimen Blood Performing Organization Address [facility] Ph one [place] [address] [phone] [place] [address] * Hepatitis B core antibody, total (10/26/2019 2:58 PM CDT) Hep B Core Total Ab Nonreactive Nonreactive [facility] Specimen Blood Narrative Performed At Credit Counselor ID - BS [facility] Performing Organization Address [facility] Ph one Number [place] [address] 0 [phone] [place] [address] * Hepatitis B surface antibody (10/26/2019 2:58 PM CDT) Hep B S Ab <8.0 <8.0 mIU/mL [facility] Specimen Blood Narrative Performed At Credit Counselor ID - BS [facility] Performing Organization Address [facility] one [place] [address] 0 [phone] [place] [address] * Pro-time/INR (10/26/2019 2:58 PM CDT) Protime 15.3 (H) 11.9 - 14.2 seconds [facility] INR 1.3 <=5.9 [facility] Specimen Blood Narrative Performed At Effective 12/10/2018: PT Reference Range Change [facility] New: 11.9-14.2Previous: 11.7-14.7 [facility] MEDICAL CE NTER RECOMMENDED COUMADIN/WARFARIN INR THERA PY RANGES STANDARD DOSE: 2.0-3.0Includes: PRO PHYLAXIS for venous thrombosis, systemic embolization; TREATMENT for venous thro mbosis and/or pulmonary embolus. HIGH RISK: Target INR is 2.5-3.5 for pa tients wiht mechanical heart valves. Performing Organization Address [facility] one Number [address] [facility] * Hepatic function panel (10/26/2019 2:58 PM CDT) Protein, Total 7.4 6.0 - 8.3 gm/dL [facility] Albumin 3.6 3.5 - 5.0 g/dL [facility] Total Bilirubin 1.8 (H) 0.2 - 1.2 mg/dL [facility] Bilirubin, Direct 0.7 (H) 0.1 - 0.5 mg/dL [facility] Alkaline Phosphatase 160 (H) 40 - 150 U/L [facility] AST 79 (H) 5 - 34 U/L [facility] ALT 39 6 - 55 U/L [facility] Specimen Blood Narrative Performed At Credit Counselor ID - BS [facility] Performing Organization Address [facility] one Number [address] [facility] * Basic Metabolic Panel (10/26/2019 2:58 PM CDT) Sodium 141 136 - 145 meq/L [facility] Potassium 3.3 (L) 3.5 - 5.1 meq/L [facility] Chloride 106 98 - 107 meq/L [facility] CO2 27 22 - 29 meq/L [facility] BUN 13 7 - 21 mg/dL [facility] Creatinine 0.60 0.57 - 1.25 mg/dL [facility] Glucose 101 70 - 105 mg/dL [facility] Calcium 9.0 8.4 - 10.2 mg/dL [facility] EGFR 99Comment: ESTIMATED GFR IS mL/min/1.73 sq m [facility] NOT ACCURATE CREATININE [facility] CLEARANCE IN PREDICTING GLOMERULAR FILTRATION RATE. ESTIMATED GFR IS NOT APPLICABLE FOR DIALYSIS PATIENTS. Specimen Blood Narrative Performed At Credit Counselor ID - BS [facility] Performing Organization Address City/State/Zipcode Ph one Number [facility] [address] [place] [address] [facility] [facility] after 11/25/2018 Insurance Payer Benefit Subscriber ID Type Phone Address Plan / Group [facility] xxxxxxxxx MEDICARE MGD CARE MEDICARE O MEDICAID MEDICA[place] xxxxxxxxx [place]
--- OUTSIDE RECORDS SUMMARY | 2019-11-26 07:16 | XMS REPORT | Clinical Summary ---
Author Author [facility] Organization [facility] Address Unknown Phone Unavailable Care Team Providers Care It Compliance Analyst Name Role Phone Devyn Mckeon ResidentMD 5 Allergies No Known Allergies Medications End Date Status Medication Sig Dispensed Refills Start Date Active atorvastatin (LIPITOR) 40 Take 1 tablet 90 tablet 3 mg tabletIndications: by mouth at 6 Coronary artery disease bedtime involving kaw coronary nightly. artery of kaw heart without angina pectoris Active nitroGLYCERIN (NITROSTAT) Dissolve 1 100 tablet 1 0.4 mg sublingual tablet under 6 tabletIndications: the tongue Coronary artery disease every 5 involving kaw coronary minutes as artery of kaw heart needed, up to without angina pectoris 3 times. If chest pain persists, call 911. Active budesonide-formoterol Inhale 2 10.2 g 4 11/13 (SYMBICORT) 80-4.5 Puffs by 7 mcg/actuation mouth 2 times inhalerIndications: Mixed daily. type COPD (chronic obstructive pulmonary disease) Active albuterol (VENTOLIN Inhale 2 20.1 g 1 HFA,PROVENTIL HFA,PROAIR Puffs by 7 HFA) 90 mcg/actuation mouth 4 times inhalerIndications: Mixed daily as type COPD (chronic needed for obstructive pulmonary Wheezing. disease) Active omeprazole (PRILOSEC) 20 Take 2 30 capsule 2 0 mg delayed release capsules by 7 capsuleIndications: Chest mouth every pain, unspecified type morning (before breakfast). Active aspirin (ASPIRIN) 81 mg Chew and 30 tablet 3 chewable swallow 1 7 tabletIndications: tablet by Transient cerebral mouth daily. ischemia, unspecified type Active furosemide (LASIX) 20 mg Take 1 tablet 30 tablet 1 tabletIndications: by mouth 2 7 Extremity edema times daily. Active Problems Problem Noted Date LVH (left ventricular hypertrophy) 12/12/2016 Chest pain 12/11/2016 Wheeze 12/04/2016 Wheezing 12/04/2016 Chest tightness 12/04/2016 Chronic bilateral low back pain without sciatica 09/2015 Whole body pain 02/15/2016 Postural fatigue 02/15/2016 Muscle weakness (generalized) 02/15/2016 Odynophagia 06/29/2014 Dyspnea 06/29/2014 Uvulitis 06/29/2014 Pharyngitis 06/29/2014 Cirrhosis 06/21/2014 Vertebral column pain 06/21/2014 Overview: ?vertebral fracture Preventative health care 06/21/2014 Overview: ?vertebral fracture Transient cerebral ischemia Weakness NSTEMI (non-ST elevated myocardial infa rction) Difficult intravenous access Gastroesophageal reflux disease without esophagitis Facial weakness Immunizations Name Administration Dates Next Due Albuterol 0.083% (3ml) 11/11/2014 Influenza Vaccine 06/21/2014 Social History Date Tobacco Use Types Packs/Day Years Used Never Smoker Smokeless Tobacco: Never Used Tobacco Cessation: Counseling Given: No Drinks/Week oz/Week Comments Alcohol Use No Sex Assigned at Date Recorded Not on file Industry Job Start Date Occupation Not on file Not on file Not on file Travel End Travel History Travel Start No recent travel history available. Last Filed Vital Signs Not on file Plan of Treatment Health Maintenance Due Date Last Done Comments Colorectal Cancer Scrn 2001 Annual (FIT/FOBT) Age 50 to 75 IMM Pneumococcal Age 65 2016 and Up Breast Cancer Scrn 12/05/2017 12/05/2016, 015 (Yearly) Results Not on fileafter 11/25/2018 Insurance Type Payer Benefit Subscriber ID Effective Phone Address Plan / Dates Group MEDICARE MEDICARE xxxxxxxxxx 2016- [id number] [place] [address] [place] MEDICAID [id number] xxxxxxxxx 2016-P [phone] resent [id number] MEDICARE [place], [place] BENEFICIAR [id number] Y Advance Directives Date Inactivated Comments Code Status Date Activated 12/13/2016 7:10 PM Full Code 12/11/2016 6:03 AM
--- OUTSIDE RECORDS SUMMARY | 2019-11-26 07:17 | XMS REPORT | Summary of Care ---
Author Author [facility] Organization [facility] Address Unknown Phone Unavailable Care Team Providers Care Geriatric Nursing Assistant Name Role Phone Referral, Self PCP Unavailable Reason for Visit * Reason Comments Follow Up Encounter Details Care Team Description Date Type Department Francisco Hernandez MD [address] [place], [place] [id number] Follow Up 04/21/2019 Office Visit [facility] Orthopedic Surgery [address], [place] [address] Allergies No Known Allergiesdocumented as of this encounter (statuses as of 04/21/2019) Medications End Date Status Medication Sig Dispensed Refills Start Date Active PROAIR HFA 108 (90 Base) INHALE 2 12 11/06 MCG/ACT inhaler PUFFS Q 4 H 8 PRF SOB Active ASPIRIN LOW DOSE 81 MG TK 1 T PO QD 5 01 tablet 8 Active atorvastatin (LIPITOR) 40 TK 1 T PO QD 6 11/14 0/201 MG tablet 8 Active SYMBICORT 160-4.5 MCG/ACT INHALE 2 1 10/14 AERO PUFFS PO BID 8 Active famotidine (PEPCID) 40 MG TK 1 T PO BID 2 / 0 tablet AC 8 Active furosemide (LASIX) 20 MG TK 1 T PO QD 6 01/17 tablet 8 Active metoprolol (TOPROL-XL) 25 TK 1 T PO 6 07/ 6201 MG XL tablet ONCE D 8 Active montelukast (SINGULAIR) TK 1 T PO HS 5 10 MG tablet 8 Active pantoprazole (PROTONIX) TK 1 T PO D 0 40 MG tablet 8 Active spironolactone TK 1 T PO D 0 (ALDACTONE) 50 MG tablet AT 2PM 8 Active acetaminophen-codeine TK 1 T PO Q 0 04/07/20 1 (TYLENOL #3) 300-30 MG 8 H PRN P 9 per tablet Active metoprolol (LOPRESSOR) 25 TK 1/ T PO 1 03/16 MG tablet TID WF 9 Active hydrocodone-acetaminophen Take 1-2 20 Tab 0 (NORCO) 5-325 mg tablet tablets by 9 mouth every 4-6 hours as needed documented as of this encounter (statuses as of 04/21/2019) Active Problems Problem Noted Date Traumatic closed displaced fracture of distal end of right radius, initial 04/14/2019 encounter Closed displaced fracture of fourth metacarpal bone o f right hand, initial 04/14/2019 encounter Chronic pain of left knee 04/14/2019 documented as of this encounter (statuses as of 04/21/2019) Social History Date Tobacco Use Types Packs/Day Years Used Never Smoker Smokeless Tobacco: Never Used Drinks/Week oz/Week Comments Alcohol Use No Sex Assigned at Date Recorded Not on file Industry Job Start Date Occupation Not on file Not on file Not on file Travel End Travel History Travel Start No recent travel history available. documented as of this encounter Last Filed Vital Signs Reading Time Taken Comments Vital Sign - - Blood Pressure - - Pulse - - Temperature - - Respiratory Rate - - Oxygen Saturation - - Inhaled Oxygen Concentration 89.8 kg (198 lb) 04/21/2019 2:08 PM CDT Weight 152.4 cm (5') 04/21/2019 2:08 PM CDT Height 38.67 04/21/2019 2:08 PM CDT Body Mass Index documented in this encounter Progress Notes * Francisco Hernandez MD - 04/21/2019 2:10 PM CDT ORTHOPEDIC SURGERY CLINIC NOTE CC: right wrist pain HPI: Marlen Frias is a 68 y.o. female hx of cirrhosis, HTN, asthma with R wrist pa in after fall 04/07/19. Followed for right distal radius and base of 4th MC fx. Patient doing well. Splint digging in elbow but otherwise doing well. Pain r elieve with elevation and pain meds. OVerall pian improving PMH: Asthma Cirrhosis HTN Obesity PSH: Hysterectomy ROS: Negative except for above. ALLERGIES: No Known Allergies OBJECTIVE: Ht 5' (1.524 m) | Wt 198 lb (89.8 kg) | BMI 38.67 kg/m Gen:NAD, AAO HEENT: normocephalic, atraumatic Resp: non labored breathing room air Cardiac: no cyanosis, regular pulse Neurologic: right AIN PIN ulnar intact, SILT median radial ulnar Vascular: BCR fingers right arm Right arm - cast in place c/d/i - SILT median radial ulnar - AIN PIN ulnar intact IMAGING: X-ray 3 views right wrist demonstrates minimally displaced extra-articular base of the 4th metacarpal fracture as well as minimally displaced intra-articular di stal radius fracture in acceptable alignment in splint ASSESSMENT/PLAN: Marlen Frias is a 68 y.o. female history of cirrhosis, COPD, HTN, Asthma with right distal radius fracture, right 4th metacarpal base fracture as well as chr onic osteoarthritis of the knee Continued non op management of the fractures Non weight bearing right arm for 6 weeks from injury Vitamin D calcium [place] for acute fracture, transition to NSAIDS prn Transition to short arm cast to fingertips NSAIDS prn, weight loss for knee osteoarthritis RTC in 2 week pcxr R wrist (3 views) Francisco Hernandez MD Silk Weaver - Traumatology Department of Orthopedic Surgery [facility] documented in this encounter Plan of Treatment Date/Time Name Type Priority Associated Diag noses 04/21/2019 2:15 PM CDT XR WRIST RIGHT (COMPLETE) Imaging Routine Trau matic closed displaced fracture of distal end of right radius, initial encounter Order Schedule Name Type Priority Associated Diag noses 1 Occurrences starting 04/21/2019 until 11/20/2019 XR WRIST RIGHT (COMPLETE) Imaging Routine Trau matic closed displaced fracture of distal end of right radius, initial encounter Ordered: 04/21/2019 ORT - XR WRIST RIGHT 3 V FL Charge Routine Traum atic closed (CHARGE ONLY) displaced fracture of distal end of right radius, initial encounter Health Maintenance Due Date Last Done Comments COLON CANCER SCREENIN1951 COLONOSCOPY MAMMOGRAM ANNUAL 1951 MEDICARE AWV 1951 TETANUS SHOT (ADULT) 1966 BMI FOLLOW UP PLAN 1969 HEPATITIS C SCREENING 1969 OSTEOPOROSIS SCREENING 2016 PNEUMOVAX >=65 (PPSV23) 2016 PREVNAR >= 65 (PCV13) 2016 FLU VACCINE > 6 MONTHS 02/12/2019 FALL SCREEN 04/14/2020 04/21/2019 documented as of this encounter Results Not on filedocumented in this encounter Visit Diagnoses Diagnosis Traumatic closed displaced fracture of distal end of right radius, initial encounter - Primary documented in this encounter Insurance Type Payer Benefit Subscriber ID Effective Phone Address Plan / Dates Group PPO [facility] DUAL xxxxxxxxx 2018-P [address] resent [id number] CHOICE(REG [place] PPO[place] [phone] Medicaid MEDICAID [employer] xxxxxxxxx 2016-P [address] - resent [id number] [place] [address] documented as of this encounter"
--- OUTSIDE RECORDS SUMMARY | 2019-11-26 07:17 | XMS REPORT | Summary of Care ---
Author Author [facility] Organization [facility] Address Unknown Phone Unavailable Care Team Providers Care Feed Adviser Name Role Phone Referral, Self PCP Unavailable Reason for Visit * Reason Comments Follow Up Encounter Details Care Team Description Date Type Department Francisco Hernandez MD [address] [place], [place] [id number] Follow Up 05/05/2019 Office Visit [facility] Orthopedic Surgery [address] [facility], [place] [address] Allergies No Known Allergiesdocumented as of this encounter (statuses as of 05/05/2019) Medications End Date Status Medication Sig Dispensed [...] per tablet Active metoprolol (LOPRESSOR) 25 TK 1/2 T PO 1 03/16 MG tablet TID WF 9 Active hydrocodone-acetaminophen Take 1-2 20 Tab 0 (NORCO) 5-325 mg tablet tablets by 9 mouth every 4-6 hours as needed documented as of this encounter (statuses as of 05/05/2019) Active Problems Problem Noted Date Traumatic closed displaced fracture of distal end of right radius, initial 04/14/2019 encounter Closed displaced fracture of fourth metacarpal bone o f right hand, initial 04/14/2019 encounter Chronic pain of left knee 04/14/2019 documented as of this encounter (statuses as of 05/05/2019) Immunizations Name Administration Dates Next Due Influenza Hd 05/05/2019 documented as of this encounter Social History Date Tobacco Use Types Packs/Day [...] Inhaled Oxygen Concentration 89.8 kg (198 lb) 05/05/2019 2:02 PM CDT Weight 152.4 cm (5') 05/05/2019 2:02 PM CDT Height 38.67 05/05/2019 2:02 PM CDT Body Mass Index documented in this encounter Progress Notes * Francisco Hernandez MD - 05/05/2019 2:30 PM CDT ORTHOPEDIC SURGERY CLINIC NOTE CC: right wrist pain HPI: Marlen Frias is a 69 y.o. female hx of cirrhosis, HTN, asthma with R wrist pa in after fall 04/07/19. Followed for right distal radius and base of 4th MC fx. Patient doing well. Patient main concern is stiffness, pain slowly improving PMH: Asthma Cirrhosis HTN Obesity PSH: [...] radial ulnar - AIN PIN ulnar intact - extensor tendons intact IMAGING: X-ray 3 views right wrist demonstrates minimally displaced extra-articular base of the 4th metacarpal fracture as well as minimally displaced intra-articular di stal radius fracture in acceptable alignment, interval healing ASSESSMENT/PLAN: Marlen Frias is a 69 y.o. female history of cirrhosis, COPD, HTN, Asthma with right distal radius fracture, right 4th metacarpal base fracture as well as chr onic osteoarthritis of the knee Continued non op management of the fractures Non weight bearing right arm for 6 weeks from injury Vitamin D calcium OTC NSAIDS for pain Short arm cast Start early ROM of fingers, WB < 5 lbs NSAIDS prn, weight loss for knee osteoarthritis RTC in 2 weeks pcxr R wrist (3 views), will d/c cast at that time and send to gabe Francisco Hernandez MD Ream Cutter - Traumatology Department of Orthopedic Surgery [facility] documented in this encounter Plan of Treatment Care Team Description Date Type Specialty Francisco Hernandez MD [address] [place] [address] [phone] 05/19/2019 Office Visit Orthopedic Surgery Order Schedule Name Type Priority Associated Diag noses Ordered: 05/05/2019 ORT - XR WRIST RIGHT 3 V AK Charge Routine Traum atic closed (CHARGE ONLY) displaced fracture of distal end of right radius, initial encounter Health Maintenance Due Date Last Done Comments COLON CANCER SCREENIN1951 COLONOSCOPY MAMMOGRAM ANNUAL 1951 MEDICARE AWV 1951 TETANUS SHOT (ADULT) 1966 BMI FOLLOW UP PLAN 1969 HEPATITIS C SCREENING 1969 OSTEOPOROSIS SCREENING 2016 PNEUMOVAX >=65 (PPSV23) 2016 PREVNAR >= 65 (PCV13) 2016 FALL SCREEN 05/05/2020 05/05/2019 FLU VACCINE > 6 MONTHS Completed 05/05/2019 documented as of this encounter Results * XR WRIST RIGHT (COMPLETE) (05/05/2019 2:25 PM CDT) Specimen Narrative Performed At For result, please reference physician' s note on the corresponding date. documented in this encounter Visit Diagnoses Diagnosis Traumatic closed displaced fracture of distal end of right radius, initial encounter - Primary Need for influenza vaccination Need for prophylactic vaccination and i noculation against influenza documented in this encounter Insurance Type Payer Benefit Subscriber ID Effective Phone Address Plan / Dates Group PPO [facility] DUAL xxxxxxxxx 2018-P [address] resent [id number] CHOICE([place] PPO)-[facility] [phone] Medicaid MEDICAID [employer]MEDIC xxxxxxxxx 2016-P [address] - resent [id number] [place] [address] documented as of this encounter"
--- OUTSIDE RECORDS SUMMARY | 2019-11-26 07:17 | XMS REPORT | Summary of Care ---
Author Author [facility] Organization [facility] Address Unknown Phone Unavailable Care Team Providers Care Pattern Grader Supervisor Name Role Phone Referral, Self PCP Unavailable Reason for Visit * Reason Comments Wrist Pain RIGHT Encounter Details Care Team Description Date Type Department Francisco Hernandez MD [address] [place], [place] [id number] Wrist Pain (RIGHT ) 04/14/2019 Office Visit [facility] Orthopedic Surgery [address] [facility], [place] [phone] Allergies No Known Allergiesdocumented as of this encounter (statuses as of 04/14/2019) Medications End Date Status Medication Sig Dispensed Refills Start Date Active PROAIR HFA 108 (90 Base) INHALE 2 12 11/06 MCG/ACT inhaler PUFFS Q 4 H 8 PRF SOB Active ASPIRIN LOW DOSE 81 MG TK 1 T PO QD 5 01 tablet 8 Active atorvastatin (LIPITOR) 40 TK 1 T PO QD 6 11/14 0201 MG tablet 8 Active SYMBICORT 160-4.5 MCG/ACT INHALE 2 1 10/14 AERO PUFFS PO BID 8 Active famotidine (PEPCID) 40 MG TK 1 T PO BID 2 11/14 tablet AC 8 Active furosemide (LASIX) 20 MG TK 1 T PO QD 6 01/17 tablet 8 Active metoprolol (TOPROL-XL) 25 TK 1 T PO 6 07/ 6 MG XL tablet ONCE D 8 Active [...] as of this encounter (statuses as of 04/14/2019) Active Problems Problem Noted Date Traumatic closed displaced fracture of distal end of right radius, initial 04/14/2019 encounter Closed displaced fracture of fourth metacarpal bone o f right hand, initial 04/14/2019 encounter Chronic pain of left knee 04/14/2019 documented as of this encounter (statuses as of 04/14/2019) Social History Date Tobacco Use Types Packs/Day [...] Signs Reading Time Taken Comments Vital Sign 137/85 04/14/2019 2:06 PM CDT Blood Pressure 74 04/14/2019 2:06 PM CDT Pulse - - Temperature - - Respiratory Rate - - Oxygen Saturation - - Inhaled Oxygen Concentration 89.8 kg (198 lb) 04/14/2019 2:06 PM CDT Weight 152.4 cm (5') 04/14/2019 2:06 PM CDT Height 38.67 04/14/2019 2:06 PM CDT Body Mass Index documented in this encounter Progress Notes * Francisco Hernandez MD - 04/14/2019 2:10 PM CDT ORTHOPEDIC SURGERY CLINIC NOTE CC: right wrist pain HPI: Marlen Frias is a 68 y.o. female hx of cirrhosis, HTN, asthma with R wrist pa in after fall 04/07/19. She was seen at outside hospital and told she had fract ure and splinted. She reports pain in right wrist and hand since the injury wor se with movement relieved by elevation and NSAIDS. Throbbing in nature. No num bness tingling open wounds. She also has chronic left knee pain, not from injur y. No mechanical symptoms in knee. PMH: Asthma Cirrhosis HTN Obesity PSH: Hysterectomy ROS: Negative except for above. ALLERGIES: No Known Allergies OBJECTIVE: BP 137/85 | Pulse 74 | Ht 5' (1.524 m) | Wt 198 lb (89.8 kg) | BMI 38.67 kg/ m Gen:NAD, AAO HEENT: normocephalic, atraumatic Resp: non labored breathing room air Cardiac: no cyanosis, regular pulse Neurologic: right AIN PIN ulnar intact, SILT median radial ulnar Vascular: BCR fingers right arm Right arm - Gross: no wounds, swelling of wrist and hand - TTP over radial styloid and dorsum of hand - Pain with motion of wrist and fingers IMAGING: X-ray 3 views right wrist demonstrates no displaced extra-articular base of the 4th metacarpal fracture as well as minimally displaced intra-articular distal ra dius fracture in acceptable alignment in splint X-ray bilateral knee demonstrates osteoarthritis, no evidence of acute fracture ASSESSMENT/PLAN: Marlen Frias is a 68 y.o. female history of cirrhosis, COPD, HTN, Asthma with right distal radius fracture, right 4th metacarpal base fracture as well as chr onic osteoarthritis of the knee Plan for non op management of the fractures Vitamin D calcium [place] for acute fracture, transition to NSAIDS prn [place] splint right wrist and hand, non weight bearing right arm, splint care instructions NSAIDS prn, weight loss for knee osteoarthritis RTC in 1 week pcxr R wrist (3 views), overwrap cast at that time Francisco Hernandez MD Mailroom Manager - Traumatology Department of Orthopedic Surgery [facility] documented in this encounter Plan of Treatment Care Team Description Date Type Specialty Francisco Hernandez MD [address] [facility] [address] [address] [facility] [address] [place] [address] [phone] 04/21/2019 Office Visit Orthopedic Surgery Order Schedule Name Type Priority Associated Diag noses Ordered: 04/14/2019 ORT - XR WRIST RIGHT 3 V RI Charge Routine Traum atic closed (CHARGE ONLY) displaced fracture of distal end of right radius, initial encounter Closed displaced fracture of fourth metacarpal bone of right hand, initial encounter Ordered: 04/14/2019 RI APPLY LONG ARM SPLINT RI Charge Routine Close d displaced fracture of fourth metacarpal bone of right hand, initial encounter Ordered: 04/14/2019 RI CAST SUP LNG ARM RI Charge Routine Closed dis placed fracture SPLINT FBRG of fourth metacarpal bone of right hand, initial encounter Health Maintenance Due Date Last Done Comments COLON CANCER SCREENIN1951 COLONOSCOPY MAMMOGRAM ANNUAL 1951 MEDICARE AWV 1951 TETANUS SHOT (ADULT) 1966 BMI FOLLOW UP PLAN 1969 HEPATITIS C SCREENING 1969 FALL SCREEN 2016 04/14/2019 OSTEOPOROSIS SCREENING 2016 PNEUMOVAX >=65 (PPSV23) 2016 PREVNAR >= 65 (PCV13) 2016 FLU VACCINE > 6 MONTHS 02/12/2019 documented as of this encounter Results * XR KNEE LEFT AP, LAT, OBL[place] (04/14/2019 3:37 PM CDT) Specimen Narrative Performed At For result, please reference physician' s note on the corresponding date. * XR WRIST RIGHT (COMPLETE) (04/14/2019 3:37 PM CDT) Specimen Narrative Performed At For result, please reference physician' s note on the corresponding date. documented in this encounter Visit Diagnoses Diagnosis Traumatic closed displaced fracture of distal end of right radius, initial encounter - Primary Closed displaced fracture of fourth met acarpal bone of right hand, initial encounter documented in this encounter Insurance Type Payer Benefit Subscriber ID Effective Phone Address Plan / Dates Group PPO [facility] DUAL xxxxxxxxx 2018-P [address] resent [id number] CHOICE(REG [place] PPO)-[facility] [id number] Medicaid MEDICAID [employer]-MEDIC xxxxxxxxx 2016-P [address] - resent [id number] [place] [address] documented as of this encounter"
--- OUTSIDE RECORDS SUMMARY | 2019-11-26 07:17 | XMS REPORT | Summary of Care ---
Author Author [facility] Organization [facility] Address Unknown Phone Unavailable Care Team Providers Care Manager Finance Name Role Phone Referral, Self PCP Unavailable Reason for Referral * (Routine) Referred By Contact Referred To Contact Status Reason Specialty Diagnoses / Procedures Francisco Hernandez MD [address] [address] Pending Consult, Test, and Occupational Diagnoses Treat Therapy Traumatic closed displaced fracture of distal end of right radius, initial encounter Reason for Visit * Reason Comments Follow Up Encounter Details Care Team Description Date Type Department Francisco Hernandez MD [address] [id number] Follow Up 05/19/2019 Office Visit [facility] Orthopedic Surgery [address] [facility]. [address], [place] [address] Allergies No Known Allergiesdocumented as of this encounter (statuses as of 05/19/2019) Medications End Date Status Medication Sig Dispensed [...] TK 1 T PO BID 2 / 0/201 tablet AC 8 Active furosemide (LASIX) 20 [...] as of this encounter (statuses as of 05/19/2019) Active Problems Problem Noted Date Closed fracture of right distal radius and ulna, with routine healing, 04/14/2019 subsequent encounter Closed fracture of base of fourth metacarpal bone of left hand with routine 04/14/2019 healing, subsequent encounter Chronic pain of left knee 04/14/2019 documented as of this encounter (statuses as of 05/19/2019) Immunizations Name Administration Dates Next Due Influenza [...] Inhaled Oxygen Concentration 89.8 kg (198 lb) 05/19/2019 2:11 PM USED [employer] Weight 152.4 cm (5') 05/19/2019 2:11 PM USED [employer] Height 38.67 05/19/2019 2:11 PM USED [employer] Body Mass Index documented in this encounter Progress Notes * Francisco Hernandez MD - 05/19/2019 2:00 PM USED [employer] ORTHOPEDIC SURGERY CLINIC NOTE CC: right wrist pain HPI: Marlen Frias is a 69 y.o. female hx of cirrhosis, HTN, asthma with R wrist pa in after fall 04/07/19. Followed for right distal radius and base of 4th MC fx. Patient doing well. Patient main concern is stiffness, no longer having much pain PMH: Asthma Cirrhosis HTN Obesity PSH: Hysterectomy [...] BCR fingers right arm Right arm - no deformity, no lesions - No TTP - Moderate wrist stiffness in flexion extension, full pronation and supination - SILT median radial ulnar - AIN PIN ulnar intact - extensor tendons intact IMAGING: X-ray 3 views right wrist demonstrates minimally displaced extra-articular base of the 4th metacarpal fracture as well as minimally displaced intra-articular di stal radius fracture in acceptable alignment, interval callus formation ASSESSMENT/PLAN: Marlen Frias is a 69 y.o. female history of cirrhosis, COPD, HTN, Asthma with right distal radius fracture, right 4th metacarpal base fracture as well as chr onic osteoarthritis of the knee Continued non op management of the fractures WBAT right arm, begin ROM exercises which were demonstrated in clinic OT for ROM and strengthening Removable wrist brace for comfort Vitamin D calcium OTC NSAIDS for pain NSAIDS prn, weight loss for knee osteoarthritis RTC in 6 weeks pcxr R wrist (3 views), can perform CSI injections of the knee at that time Francisco Hernandez MD Fee Clerk - Traumatology Department of Orthopedic Surgery [facility] [employer] documented in this encounter Plan of Treatment Date/Time Name Type Priority Associated Diag noses 05/19/2019 2:19 PM USED [employer] XR WRIST RIGHT (COMPLETE) Imaging Routine Trau matic closed displaced fracture of distal end of right radius, initial encounter Order Schedule Name Type Priority Associated Diag noses 1 Occurrences starting 05/19/2019 until 12/18/2019 XR WRIST RIGHT (COMPLETE) Imaging Routine Trau matic closed displaced fracture of distal end of right radius, initial encounter Ordered: 05/19/2019 ORT - XR WRIST RIGHT 3 V IL Charge Routine Traum atic closed (CHARGE ONLY) displaced fracture of distal end of right radius, initial encounter Order Schedule Name Type Priority Associated Diag noses Ordered: 05/19/2019 AMB REF TO OCC THERAPY Outpatient Routine Traumat ic closed EXTERNAL Referral displaced fracture of distal end of right radius, initial encounter Health Maintenance Due Date Last Done Comments COLON CANCER SCREENIN1951 COLONOSCOPY MAMMOGRAM ANNUAL 1950 MEDICARE AWV 1951 TETANUS SHOT (ADULT) 1966 BMI FOLLOW UP PLAN 1969 HEPATITIS C SCREENING 1969 OSTEOPOROSIS SCREENING 2016 PNEUMOVAX >=65 (PPSV23) 2016 PREVNAR >= 65 (PCV13) 2016 FALL SCREEN 05/19/2020 05/19/2019 FLU VACCINE > 6 MONTHS Completed 05/05/2019, documented as of this encounter Results Not on filedocumented in this encounter Visit Diagnoses Diagnosis Traumatic closed displaced fracture of distal end of right radius, initial encounter - Primary Closed displaced fracture of fourth met acarpal bone of right hand, initial encounter documented in this encounter Insurance Type Payer Benefit Subscriber ID Effective Phone Address Plan / Dates Group PPO [facility] DUAL xxxxxxxxx 2018-P [address] [place] [id number] CHOICE([place] [id number] Medicaid MEDICAID [employer] xxxxxxxxx 2016-P [address] - resent [id number] [place] [address] documented as of this encounter"
--- NOTE | 2019-11-26 10:02 | NUR ---
1002 am RECEIVING NOTE IN FILE OPERATOR RECOVERY DEPT............................................................... Bedside report received from BRIAN Sheridan. Identifierx2. Alert oriented and appropriate, PERRLA, respirations even and unlabored to room air. Pulses x4 ext equal and strong. Pedal pulses PT/DP X4and marked. Cap fill brisk < 3 sec. Rt TR band ok to reduce at 1100am No gross issues pain pallor pressure or dysrhythmia. . Skin warm and dry integrity appears IV 20g to left hand at 100cchr.Presents healthy w/o s/s of infiltration or complaint. Abdomen soft and supple. pt offered toileting, denies need to urinate or defecate. No personal affects with patient. Family XXXXX. Pt and family verbalizes understanding of POC. POst procedure teaching done. Currently w/o complaint of pain ds/rn
--- NOTE | 2019-11-26 11:00 | NUR ---
1100a talked to dr Jose hdz to turn off Ns and remain saline lock till dc. proceed with dc 2hrs after tr band off ds/rn
--- NOTE | 2019-11-26 11:15 | NUR ---
1115axx aRADIAL COMPRESSION REMOVAL NOTE: Initial Cuff volume xx cc 1115 am -2cc Removed No hematoma/ slight bleeding noted with normal neurovascular function.replace 2cc air 1130 am hold with drawl from TR band 1145am -2cc Removed No hematoma/bleeding noted with normal neurovascular function. 12noon -5cc Removed no hematoma/bleeding noted with normal neurovascular function. 1215 -5cc Removed no hematoma/bleeding noted with normal neuro vascular functionl Air removal completed. Stasis achieved sterile 2x2,Tegaderm, Coban dressing No hematoma, bleeding noted with normal neurovascular function. Wrist splint in place. Pt instructed on POC. Ds/Rn
--- NOTE | 2019-11-26 14:00 | NUR ---
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 Rt tr band site assessed for s/s of complication and presence of hematoma. Skin warm, dry, no discolor, and pulses present. IV removed from left hand Distal tip appears intact. VS WNL. Pt denies pain, sob, or need at this time. Family at BS. Review of discharge paperwork and follow up instructions. verbalized understanding. Pt to wheelchair and transport car No gross issues pain,pallor,pressure or dysrhythmia aware of importance of f/o care ds/rn
--- NOTE | 2019-11-26 20:46 | Operative Report ---
DATE OF PROCEDURE: 11/26/2019 SURGEON: Gage Richard MD PROCEDURE INDICATION: Chest pain concerning for angina pectoris. PROCEDURES PERFORMED: 1. Left heart catheterization. 2. Selective coronary angiography. 3. Right radial TR band hemostasis. PROCEDURE COMPLICATIONS: None. ESTIMATED BLOOD LOSS: Less than 15 mL. PROCEDURE SUMMARY: After consent was obtained, the patient was prepped and draped in a sterile fashion. The right radial site was locally infiltrated with 2% lidocaine and access was obtained with a 5-Georgian outer diameter slender sheath. A 5-Georgian diameter was used for engagement of left main and right coronary artery and a pigtail catheter across aortic valve with hemodynamic measurements. No left ventriculogram. FINDINGS: The following findings were noted. 1. Left main large in caliber with luminal irregularity, gives off an LAD and a circumflex. 2. LAD large in caliber with luminal irregularities gives distal perforators and diagonals and it courses to the apex where it wraps around and ends. 3. The circumflex is large in caliber with luminal irregularities gives 3 obtuse marginals. 4. The right coronary artery has 30% proximal tubular stenosis and 30% distal stenosis. A couple of RV marginals arise from this vessel, which terminate in RPDA and RPLV and is a dominant vessel. 5. Left ventriculogram reveals preserved left ventricular systolic function, normal regional wall motion, and left ventricular ejection fraction of 60% to 65%. 6. LV pressure is 118/58 with end-diastolic pressure of 19. 7. Aortic pressure is 114/62. Conclusions: mild coronary artery disease preserved left ventricular systolic function mildly elevated LVEDP. Recommend: Up titrate diuretics. Continue rest of cardiovascular medications. Medical management for CAD wean TR band. Gage Richard MD AFV/MODL /[id number] MTDDev
== END | disposition home or self-care (01) ==
LOC: CATH LAB 07:08
PROVIDERS: ATTEND Internal Medicine Cardiovascular Disease
DX: I25.119 Atherosclerotic heart disease of native coronary artery with unspecified angina pectoris (principal); I11.0 Hypertensive heart disease with heart failure; I50.22 Chronic systolic (congestive) heart failure; K74.60 Unspecified cirrhosis of liver; J44.9 Chronic obstructive pulmonary disease, unspecified; E66.01 Morbid (severe) obesity due to excess calories; E78.5 Hyperlipidemia, unspecified; Z01.812 Encounter for preprocedural laboratory examination; Z11.59 Encounter for screening for other viral diseases; Z79.82 Long term (current) use of aspirin; Z68.38 Body mass index [BMI] 38.0-38.9, adult; Z82.49 Family history of ischemic heart disease and other diseases of the circulatory system
CPT/HCPCS: 36415; 80053; 80061; 85025; 85610; 85730; 87635; 93458; C1769; C1887; J1644; J2001; J2250; J3010; J7030; Q9967; 99152; 99153

== ENCOUNTER → 2020-02-24 | Outpatient (CLI) | payer MEDICARE, OTHER ==
[~2020-02-24] MED LIST changes: -ASPIRIN 325 MG TAB ONE; -FENTANYL CITRATE/PF 100MCG/2 ML INJ ONE; -HEPARIN SOD (PORCINE) 1000 UNIT/ML 30ML ONE; -HEPARIN SOD/SOD CHLORIDE 2,000 ML ONE; -IOPAMIDOL 370 MG/ML 200 ML INFUS..BTL INJ ONE; -LIDOCAINE HCL 2% LOCAL 20 ML VIAL ONE; -MIDAZOLAM HCL 2 MG/2 ML VIAL ONE; -NITROGLYCERIN/D5W 200 MCG/ML 250 ML ONE; -SODIUM CHLORIDE 0.9% 1000ML 1,000 ML ONE; -VERAPAMIL HCL 2.5 MG/ML 2 ML VIAL ONE
== END ==
LOC: RESP 12:36
PROVIDERS: ATTEND Internal Medicine Critical Care Medicine
DX: R06.02 Shortness of breath (principal); J06.9 Acute upper respiratory infection, unspecified; J45.909 Unspecified asthma, uncomplicated; K21.9 Gastro-esophageal reflux disease without esophagitis; G47.33 Obstructive sleep apnea (adult) (pediatric)
CPT/HCPCS: 94060; 94664; 94727; 94729

== ENCOUNTER → 2021-01-27 | Outpatient (CLI) | payer MEDICARE, OTHER ==
[2021-01-27 12:55] LABS: BASOPHILS # (AUTO) 0.1 (0.0-0.1); BASOPHILS % 1.4 % (0.0-1.0); EOSINOPHILS # (AUTO) 0.1 (0.0-0.4); EOSINOPHILS % 2.2 % (0.0-6.0); HEMATOCRIT 47.2 % (34.2-44.1); HEMOGLOBIN 15.8 g/dL (12.0-16.0); LYMPHOCYTES # (AUTO) 3.2 (1.0-3.2); MEAN CORPUSCULAR HEMOGLOBIN 32.8 pg (28-32); MEAN CORPUSCULAR HGB CONC 33.5 g/dL (31-35); MEAN CORPUSCULAR VOLUME 97.9 fL (81-99); MONOCYTES # (AUTO) 0.6 (0.2-0.8); MONOCYTES % 9.4 % (4.4-11.3); NEUTROPHILS # (AUTO) 1.9 (2.1-6.9); NEUTROPHILS % 32.8 % (38.7-80.0); PLATELET COUNT 142 x10e3/uL (140-360); RED BLOOD COUNT 4.82 x10e6/uL (3.6-5.1)
[2021-01-27 13:03] LABS: INR 1.03; PROTHROMBIN TIME 14.1 seconds (11.9-14.5)
[2021-01-27 13:10] LABS: ALBUMIN 3.5 g/dL (3.5-5.0); ANION GAP 14.3 mmol/L (8-16); CALCIUM 9.2 mg/dL (8.4-10.2); CREATININE, SERUM 0.6 mg/dL (0.57-1.11); POTASSIUM 3.3 mmol/L (3.5-5.1)
== END ==
LOC: US 11:09
PROVIDERS: ATTEND Nurse Practitioner Primary Care
DX: Z12.9 Encounter for screening for malignant neoplasm, site unspecified (principal); K74.69 Other cirrhosis of liver
CPT/HCPCS: 36415; 76700; 80048; 80076; 82105; 85025; 85610

== ENCOUNTER → 2021-02-03 | Outpatient (CLI) | payer MEDICARE, OTHER | LOC: RAD 14:52 | PROVIDERS: ATTEND Internal Medicine Critical Care Medicine | DX: R06.02 Shortness of breath (principal); J06.9 Acute upper respiratory infection, unspecified; G47.33 Obstructive sleep apnea (adult) (pediatric); J45.909 Unspecified asthma, uncomplicated; K21.9 Gastro-esophageal reflux disease without esophagitis | CPT/HCPCS: 71046 ==

== ENCOUNTER → 2021-02-03 | Outpatient (CLI) | payer MEDICARE, OTHER | LOC: MAMMO 14:54 | PROVIDERS: ATTEND Internal Medicine | DX: Z12.31 Encounter for screening mammogram for malignant neoplasm of breast (principal) | CPT/HCPCS: 77067 ==

== ENCOUNTER → 2021-03-02 | Outpatient (CLI) | payer MEDICARE, OTHER | LOC: US 14:48 | PROVIDERS: ATTEND Internal Medicine | DX: R92.2 Inconclusive mammogram (principal) ==

== ENCOUNTER 2021-03-21 16:59 | Emergency (ER) | payer MEDICARE, OTHER ==
[~2021-03-21] VITALS: Ht 154.9 cm; Wt 88.9 kg
[2021-03-21 17:42] LABS: BASOPHILS # (AUTO) 0.1 (0.0-0.1); BASOPHILS % 1.5 % (0.0-1.0); EOSINOPHILS % 0.5 % (0.0-6.0); HEMATOCRIT 37.7 % (34.2-44.1); LYMPHOCYTES # (AUTO) 1.7 (1.0-3.2); LYMPHOCYTES % 42.1 % (18.0-39.1); MEAN CORPUSCULAR HEMOGLOBIN 33.7 pg (28-32); MEAN CORPUSCULAR HGB CONC 34.5 g/dL (31-35); MEAN CORPUSCULAR VOLUME 97.7 fL (81-99); MONOCYTES # (AUTO) 0.4 (0.2-0.8); MONOCYTES % 9.1 % (4.4-11.3); NEUTROPHILS # (AUTO) 1.9 (2.1-6.9); NEUTROPHILS % 46.5 % (38.7-80.0); PLATELET COUNT 141 x10e3/uL (140-360); RED BLOOD COUNT 3.86 x10e6/uL (3.6-5.1)
[2021-03-21 17:50] LABS: INR 1.13; PROTHROMBIN TIME 14.7 seconds (11.9-14.5)
[2021-03-21 17:51] LABS: PARTIAL THROMBOPLASTIN TIME 34.4 seconds (23.8-35.5)
[2021-03-21 18:00] LABS: ALBUMIN/GLOBULIN RATIO 0.9 (0.8-2.0); ANION GAP 10.3 mmol/L (8-16); CALCIUM 8.3 mg/dL (8.4-10.2); CREATININE, SERUM 0.57 mg/dL (0.57-1.11); POTASSIUM 3.3 mmol/L (3.5-5.1)
[2021-03-21 18:07] LABS: CREATINE KINASE MB 1.2 ng/mL (0-5.0)
[2021-03-21 18:45] LABS: CLARITY,URINE SL CLOUDY (CLEAR); COLOR,URINE AMBER (YELLOW); KETONES,URINE TRACE (NEGATIVE); LEUKOCYTE ESTERASE ,URINE NEGATIVE (NEGATIVE); NITRITE,URINE NEGATIVE (NEGATIVE); PROTEIN,URINE DIPSTICK NEGATIVE (NEGATIVE); URINE UROBILINOGEN 2 mg/dL (0.2 - 1)
[2021-03-21 19:01] LABS: BACTERIA,URINE MODERATE /HPF; EPITHELIAL CELLS,URINE MODERATE /LPF; MUCUS,URINE MANY (RARE); RBC,URINE 0-5 /HPF (0-5)
[2021-03-21] MEDS ORDERED: CEPHALEXIN500 MG PO (20:44)
[2021-03-21] MEDS ORDERED: ONDANSETRON ODT4 MG PO (21:06)
[2021-03-21 21:19] VITALS: BP 146/72
== END 2021-03-21 21:09 | disposition home or self-care (01) ==
LOC: ER 18:08
DX: M79.601 Pain in right arm (principal); N39.0 Urinary tract infection, site not specified; Z20.822 Contact with and (suspected) exposure to COVID-19
CPT/HCPCS: 36415; 70450; 71045; 80053; 81001; 82550; 82553; 83880; 84484; 85025; 85610; 85730; 93005; 99284; U0002

== ENCOUNTER 2021-09-16 20:55 | Emergency (ER) | payer MEDICARE, OTHER ==
[~2021-09-16] VITALS: Ht 154.9 cm; Wt 88.9 kg
[~2021-09-16 20:55] MED LIST changes: +CEPHALEXIN500 MG PO; +ONDANSETRON ODT4 MG PO
[2021-09-16 21:59] LABS: ALBUMIN 3.2 g/dL (3.5-5.0); ALBUMIN/GLOBULIN RATIO 0.8 (0.8-2.0); ANION GAP 11.2 mmol/L (8-16); CALCIUM 9.6 mg/dL (8.4-10.2); CREATININE, SERUM 0.76 mg/dL (0.57-1.11); POTASSIUM 3.2 mmol/L (3.5-5.1)
[2021-09-16 22:24] LABS: BASOPHILS # (AUTO) 0.1 (0.0-0.1); BASOPHILS % 1.1 % (0.0-1.0); EOSINOPHILS # (AUTO) 0.1 (0.0-0.4); EOSINOPHILS % 1.9 % (0.0-6.0); HEMATOCRIT 43.7 % (34.2-44.1); HEMOGLOBIN 15.3 g/dL (12.0-16.0); LYMPHOCYTES # (AUTO) 2.8 (1.0-3.2); LYMPHOCYTES % 44.5 % (18.0-39.1); MEAN CORPUSCULAR VOLUME 97.1 fL (81-99); MONOCYTES # (AUTO) 0.7 (0.2-0.8); MONOCYTES % 11.7 % (4.4-11.3); NEUTROPHILS # (AUTO) 2.6 (2.1-6.9); NEUTROPHILS % 40.5 % (38.7-80.0); PLATELET COUNT 161 x10e3/uL (140-360); RED CELL DISTRIBUTION WIDTH 13.2 % (11.7-14.4)
[2021-09-16] MEDS ORDERED: MUCINEX DM ER1 EACH PO (22:25)
[2021-09-16 23:18] VITALS: BP 135/79
== END 2021-09-16 23:28 | disposition home or self-care (01) ==
LOC: ER 21:02
DX: U07.1 COVID-19 (principal); R50.9 Fever, unspecified; R06.00 Dyspnea, unspecified; I10 Essential (primary) hypertension; J44.9 Chronic obstructive pulmonary disease, unspecified; I50.9 Heart failure, unspecified; K76.9 Liver disease, unspecified; E78.5 Hyperlipidemia, unspecified; D64.9 Anemia, unspecified; I25.10 Atherosclerotic heart disease of native coronary artery without angina pectoris; R94.31 Abnormal electrocardiogram [ECG] [EKG]
CPT/HCPCS: 36415; 71045; 80053; 83880; 84484; 85025; 93005; 99284; U0002

== ENCOUNTER 2021-12-23 19:05 | Emergency (ER) | payer MEDICARE, OTHER ==
[~2021-12-23] VITALS: Ht 162.6 cm; Wt 83.9 kg
[~2021-12-23 19:05] MED LIST changes: +MUCINEX DM ER1 EACH PO
[2021-12-23] MEDS ORDERED: MORPHINE SULFAT15 MG PO (22:10)
== END 2021-12-23 22:17 | disposition home or self-care (01) ==
LOC: ER 19:08
DX: R07.89 Other chest pain (principal); S22.41XA Multiple fractures of ribs, right side, initial encounter for closed fracture; S00.83XA Contusion of other part of head, initial encounter; W01.0XXA Fall on same level from slipping, tripping and stumbling without subsequent striking against object, initial encounter; Y92.89 Other specified places as the place of occurrence of the external cause; I10 Essential (primary) hypertension; E78.5 Hyperlipidemia, unspecified; D64.9 Anemia, unspecified; I50.9 Heart failure, unspecified; K76.9 Liver disease, unspecified; Z86.73 Personal history of transient ischemic attack (TIA), and cerebral infarction without residual deficits
CPT/HCPCS: 70450; 71101; 99283

== ENCOUNTER → 2022-03-15 | Outpatient (CLI) | payer MEDICARE ==
[~2022-03-15] MED LIST changes: +MORPHINE SULFAT15 MG PO
== END ==
LOC: MAMMO 14:43
PROVIDERS: ATTEND Internal Medicine
DX: Z12.31 Encounter for screening mammogram for malignant neoplasm of breast (principal); I10 Essential (primary) hypertension
CPT/HCPCS: 77067

== ENCOUNTER 2022-03-24 15:45 | Inpatient (IN) | payer MEDICARE ==
[~2022-03-24] VITALS: Ht 157.5 cm; Wt 99.8 kg
[2022-03-24] MEDS ORDERED: SODIUM CHLORIDE FLUSH 10 ML SYR IV PRN (16:15)
[2022-03-24 16:24] LABS: BASOPHILS # (AUTO) 0.1 (0.0-0.1); BASOPHILS % 1.3 % (0.0-1.0); EOSINOPHILS # (AUTO) 0.2 (0.0-0.4); EOSINOPHILS % 2.8 % (0.0-6.0); HEMATOCRIT 40.3 % (34.2-44.1); LYMPHOCYTES # (AUTO) 2.2 (1.0-3.2); LYMPHOCYTES % 40.4 % (18.0-39.1); MEAN CORPUSCULAR HEMOGLOBIN 33.7 pg (28-32); MEAN CORPUSCULAR HGB CONC 34.7 g/dL (31-35); MEAN CORPUSCULAR VOLUME 96.9 fL (81-99); MONOCYTES # (AUTO) 0.6 (0.2-0.8); MONOCYTES % 11.3 % (4.4-11.3); NEUTROPHILS # (AUTO) 2.3 (2.1-6.9); PLATELET COUNT 143 x10e3/uL (140-360); RED BLOOD COUNT 4.16 x10e6/uL (3.6-5.1); RED CELL DISTRIBUTION WIDTH 12.1 % (11.7-14.4)
[2022-03-24 16:39] LABS: ALBUMIN 3.1 g/dL (3.5-5.0); ALBUMIN/GLOBULIN RATIO 0.8 (0.8-2.0); ANION GAP 12.7 mmol/L (8-16); CALCIUM 8.8 mg/dL (8.4-10.2); CREATININE, SERUM 0.67 mg/dL (0.57-1.11); POTASSIUM 3.7 mmol/L (3.5-5.1)
[2022-03-24] MEDS ORDERED: ASPIRIN 81 MG CHEW TAB PO ONE ×2 (16:45→17:30)
[2022-03-24] MEDS ORDERED: ONDANSETRON HCL INJ 2MG/ML 2ML 2 MG/ML VIAL IV PRN (17:30)
[2022-03-24] MEDS ORDERED: SODIUM CHLORIDE FLUSH 10 ML SYR INJ PRN (17:30)
[2022-03-24 20:00] VITALS: BP 141/52
[2022-03-24 21:30] VITALS: BP 141/52
[2022-03-24 22:00] VITALS: BP 141/52
[2022-03-25] VITALS (7 sets, daily range): BP systolic 100–134; BP diastolic 52–71
[2022-03-25 00:35] LABS: CREATINE KINASE MB 1.2 ng/mL (0-5.0)
[2022-03-25] MEDS ORDERED: PROAIR HFA INH8.5 GM IH (02:06)
[2022-03-25] MEDS ORDERED: CARVEDILOL12.5 MG PO (02:06)
[2022-03-25] MEDS ORDERED: SYMBICORT 80-10.2 GM INH (02:06)
[2022-03-25] MEDS ORDERED: PANTOPRAZOLE SO40 MG PO (02:06)
[2022-03-25 08:16] LABS: BASOPHILS # (AUTO) 0.1 (0.0-0.1); BASOPHILS % 1.1 % (0.0-1.0); EOSINOPHILS # (AUTO) 0.2 (0.0-0.4); EOSINOPHILS % 3.3 % (0.0-6.0); HEMATOCRIT 34.7 % (34.2-44.1); HEMOGLOBIN 12.5 g/dL (12.0-16.0); LYMPHOCYTES # (AUTO) 2.9 (1.0-3.2); LYMPHOCYTES % 52.8 % (18.0-39.1); MEAN CORPUSCULAR VOLUME 94.3 fL (81-99); MONOCYTES # (AUTO) 0.7 (0.2-0.8); NEUTROPHILS # (AUTO) 1.7 (2.1-6.9); NEUTROPHILS % 30.6 % (38.7-80.0); PLATELET COUNT 113 x10e3/uL (140-360); RED BLOOD COUNT 3.68 x10e6/uL (3.6-5.1); RED CELL DISTRIBUTION WIDTH 12.4 % (11.7-14.4)
[2022-03-25 08:38] LABS: ANION GAP 12.2 mmol/L (8-16); CALCIUM 8.4 mg/dL (8.4-10.2); CREATININE, SERUM 0.58 mg/dL (0.57-1.11); POTASSIUM 3.2 mmol/L (3.5-5.1)
[2022-03-25] MEDS ORDERED: ASPIRIN 325 MG TAB EC PO SCH (09:00)
[2022-03-25 09:03] LABS: CREATINE KINASE MB 1.1 ng/mL (0-5.0)
[2022-03-25] MEDS: LACTULOSE SYRUP 20 GM/30 ML UDC PO SCH ×2 (09:21→16:42)
[2022-03-25] MEDS: FUROSEMIDE 40 MG TAB PO SCH ×2 (09:22→16:42)
[2022-03-25 16:25] LABS: CREATINE KINASE MB 1.2 ng/mL (0-5.0)
[2022-03-25] MEDS: MONTELUKAST SODIUM 10 MG TAB PO SCH (20:43)
[2022-03-26] VITALS (8 sets, daily range): BP systolic 103–151; BP diastolic 62–92
[2022-03-26 05:38] LABS: INR 1.19; PROTHROMBIN TIME 16.1 seconds (11.9-14.5)
[2022-03-26 05:39] LABS: PARTIAL THROMBOPLASTIN TIME 35.8 seconds (23.8-35.5)
[2022-03-26] MEDS ORDERED: POTASSIUM CHLORIDE 10MEQ EA PO ONE (08:30)
[2022-03-26] MEDS: LACTULOSE SYRUP 20 GM/30 ML UDC PO SCH ×2 (09:32→16:17)
[2022-03-26] MEDS: FUROSEMIDE 40 MG TAB PO SCH ×2 (09:33→16:21)
[2022-03-26] MEDS: CARVEDILOL 3.125 MG TAB PO SCH (17:29)
[2022-03-26] MEDS: MONTELUKAST SODIUM 10 MG TAB PO SCH (21:50)
[2022-03-27] VITALS: BP 109/56
[2022-03-27 04:00] VITALS: BP 109/50
[2022-03-27 08:01] VITALS: BP 100/48
[2022-03-27] MEDS: CARVEDILOL 3.125 MG TAB PO SCH (08:38)
[2022-03-27] MEDS: LACTULOSE SYRUP 20 GM/30 ML UDC PO SCH (08:39)
[2022-03-27] MEDS: FUROSEMIDE 40 MG TAB PO SCH (08:39)
[2022-03-27] MEDS: MONTELUKAST SODIUM 10 MG TAB PO SCH (08:41)
[2022-03-27] MEDS ORDERED: POTASSIUM CHLORIDE 10MEQ EA PO ONE (09:00)
== END 2022-03-27 11:12 | disposition home or self-care (01) | DRG 433 ==
LOC: ER 15:49 → ERHOLD 17:20 → MED/SURG 20:18 → OBSVTOIN 03-26 08:03
PROVIDERS: ADMIT Internal Medicine; ATTEND Internal Medicine
DX: K74.69 Other cirrhosis of liver (principal); I50.32 Chronic diastolic (congestive) heart failure; I69.354 Hemiplegia and hemiparesis following cerebral infarction affecting left non-dominant side; I85.10 Secondary esophageal varices without bleeding; G89.29 Other chronic pain; I11.0 Hypertensive heart disease with heart failure; J44.9 Chronic obstructive pulmonary disease, unspecified; E78.5 Hyperlipidemia, unspecified; R13.10 Dysphagia, unspecified; M19.90 Unspecified osteoarthritis, unspecified site; I25.10 Atherosclerotic heart disease of native coronary artery without angina pectoris; K29.70 Gastritis, unspecified, without bleeding; K75.81 Nonalcoholic steatohepatitis (NASH); K20.80 Other esophagitis without bleeding
CPT/HCPCS: 36415; 71045; 80048; 80053; 82550; 82553; 84484; 85025; 85610; 85730; 93005; 93306; 94760; 99284; G0378; J2405

== ENCOUNTER 2022-04-03 15:10 | Inpatient (IN) | payer MEDICARE ==
[~2022-04-03] VITALS: Ht 154.9 cm; Wt 94.3 kg
[~2022-04-03 15:10] MED LIST changes: +CARVEDILOL12.5 MG PO; +PROAIR HFA INH8.5 GM IH; +SYMBICORT 80-10.2 GM INH
[2022-04-03] MEDS ORDERED: SODIUM CHLORIDE 0.9% 500ML 500 ML IV ONE (16:00)
[2022-04-03 16:19] LABS: BASOPHILS # (AUTO) 0.1 (0.0-0.1); BASOPHILS % 0.9 % (0.0-1.0); EOSINOPHILS % 0.5 % (0.0-6.0); HEMATOCRIT 42.3 % (34.2-44.1); HEMOGLOBIN 15.4 g/dL (12.0-16.0); LYMPHOCYTES # (AUTO) 2.5 (1.0-3.2); MEAN CORPUSCULAR HEMOGLOBIN 33.8 pg (28-32); MEAN CORPUSCULAR HGB CONC 36.4 g/dL (31-35); MONOCYTES # (AUTO) 0.7 (0.2-0.8); MONOCYTES % 8.9 % (4.4-11.3); NEUTROPHILS # (AUTO) 4.6 (2.1-6.9); NEUTROPHILS % 57.4 % (38.7-80.0); PLATELET COUNT 160 x10e3/uL (140-360); RED BLOOD COUNT 4.55 x10e6/uL (3.6-5.1); RED CELL DISTRIBUTION WIDTH 12.3 % (11.7-14.4)
[2022-04-03 16:27] LABS: INR 1.1; PROTHROMBIN TIME 15.2 seconds (11.9-14.5)
[2022-04-03 16:28] LABS: PARTIAL THROMBOPLASTIN TIME 31.9 seconds (23.8-35.5)
[2022-04-03 16:35] LABS: ALBUMIN 3.5 g/dL (3.5-5.0); ALBUMIN/GLOBULIN RATIO 0.9 (0.8-2.0); ANION GAP 16.5 mmol/L (8-16); CALCIUM 9.3 mg/dL (8.4-10.2); CREATININE, SERUM 0.82 mg/dL (0.57-1.11); MAGNESIUM 1.7 MG/DL (1.3-2.1); POTASSIUM 3.5 mmol/L (3.5-5.1)
[2022-04-03 16:44] LABS: CREATINE KINASE MB 1.5 ng/mL (0-5.0)
[2022-04-03 16:47] LABS: CLARITY,URINE SL CLOUDY (CLEAR); COLOR,URINE AMBER (YELLOW); KETONES,URINE NEGATIVE (NEGATIVE); LEUKOCYTE ESTERASE ,URINE SMALL (NEGATIVE); NITRITE,URINE NEGATIVE (NEGATIVE); PROTEIN,URINE DIPSTICK 2+ (NEGATIVE); URINE UROBILINOGEN 2 mg/dL (0.2 - 1)
[2022-04-03] MEDS ORDERED: SODIUM CHLORIDE 0.9% 100 ML ONE (16:54)
[2022-04-03] MEDS ORDERED: IOPAMIDOL 370 MG/ML 100 ML INFUS..BTL INJ ONE (16:54)
[2022-04-03 17:01] LABS: BACTERIA,URINE MODERATE /HPF; EPITHELIAL CELLS,URINE FEW /LPF; RBC,URINE 0-5 /HPF (0-5); RENAL EPITHELIAL CELLS,URINE RARE
[2022-04-03] MEDS ORDERED: ONDANSETRON HCL INJ 2MG/ML 2ML 2 MG/ML VIAL IV PRN (18:15)
[2022-04-03] MEDS: SODIUM CHLORIDE 0.9% 1000ML 1,000 ML IV SCH (19:25)
[2022-04-03 20:57] VITALS: BP 116/57
[2022-04-03 21:35] VITALS: BP 116/57
[2022-04-03] MEDS ORDERED: LOSARTAN POTASS25 MG PO (21:44)
[2022-04-03] MEDS ORDERED: CARVEDILOL12.5 MG PO (21:44)
[2022-04-03 21:48] VITALS: BP 116/57
[2022-04-03 21:49] VITALS: BP 116/57
[2022-04-03] MEDS ORDERED: CARVEDILOL 3.125 MG TAB PO ONE (23:45)
[2022-04-03 23:59] VITALS: BP 112/51
[2022-04-04] VITALS (7 sets, daily range): BP systolic 100–125; BP diastolic 52–66
[2022-04-04 05:43] LABS: BASOPHILS # (AUTO) 0.1 (0.0-0.1); BASOPHILS % 0.9 % (0.0-1.0); EOSINOPHILS # (AUTO) 0.1 (0.0-0.4); EOSINOPHILS % 1.3 % (0.0-6.0); HEMATOCRIT 38.2 % (34.2-44.1); HEMOGLOBIN 13.2 g/dL (12.0-16.0); LYMPHOCYTES # (AUTO) 3.3 (1.0-3.2); LYMPHOCYTES % 47.8 % (18.0-39.1); MEAN CORPUSCULAR HEMOGLOBIN 33.8 pg (28-32); MEAN CORPUSCULAR HGB CONC 34.6 g/dL (31-35); MEAN CORPUSCULAR VOLUME 97.7 fL (81-99); MONOCYTES # (AUTO) 0.8 (0.2-0.8); NEUTROPHILS # (AUTO) 2.7 (2.1-6.9); NEUTROPHILS % 38.9 % (38.7-80.0); PLATELET COUNT 137 x10e3/uL (140-360); RED BLOOD COUNT 3.91 x10e6/uL (3.6-5.1); RED CELL DISTRIBUTION WIDTH 12.3 % (11.7-14.4)
[2022-04-04] MEDS: SODIUM CHLORIDE 0.9% 1000ML 1,000 ML IV SCH (05:50)
[2022-04-04 06:11] LABS: ALBUMIN 2.8 g/dL (3.5-5.0); ALBUMIN/GLOBULIN RATIO 0.8 (0.8-2.0); ANION GAP 14.3 mmol/L (8-16); CALCIUM 8.5 mg/dL (8.4-10.2); CREATININE, SERUM 0.69 mg/dL (0.57-1.11); POTASSIUM 3.3 mmol/L (3.5-5.1)
[2022-04-04] MEDS ORDERED: ALBUTEROL SULFATE HFA 8GM INHALATION AEROSOL INH PRN (06:30)
[2022-04-04] MEDS: BUDESONIDE/FORMOTEROL FUMARATE 80/4.5MCG 6.9 GM INH AEROSOL IH SCH ×2 (07:00→19:00)
[2022-04-04] MEDS ORDERED: TRAMADOL HCL 50 MG TAB PO PRN (07:45)
[2022-04-04] MEDS ORDERED: CARVEDILOL 3.125 MG TAB PO SCH (08:00)
[2022-04-04] MEDS ORDERED: POTASSIUM CHLORIDE 10MEQ EA PO ONE (09:00)
[2022-04-04] MEDS ORDERED: FUROSEMIDE 40 MG TAB PO SCH (09:00)
[2022-04-04] MEDS ORDERED: POTASSIUM CHLORIDE 10MEQ EA PO SCH ×3 (09:00)
[2022-04-04] MEDS ORDERED: CARVEDILOL 12.5 MG TAB PO SCH (09:00)
[2022-04-04] MEDS ORDERED: ONDANSETRON HCL 4 MG ORAL DISINTEGRATING TAB PO SCH (09:00)
[2022-04-04] MEDS ORDERED: LOSARTAN POTASSIUM 25 MG TAB PO SCH (09:00)
[2022-04-04] MEDS ORDERED: SPIRONOLACTONE 25 MG TAB PO SCH (09:00)
[2022-04-04] MEDS: PANTOPRAZOLE SOD 40 MG TABEC PO SCH (09:25)
[2022-04-04] MEDS: LACTULOSE SYRUP 20 GM/30 ML UDC RC SCH ×2 (09:28→13:23)
[2022-04-04] MEDS: MONTELUKAST SODIUM 10 MG TAB PO SCH (09:28)
[2022-04-04] MEDS ORDERED: MAGNESIUM SULFATE 2GM/50ML 50 ML IV ONE (10:15)
[2022-04-04] MEDS: METOPROLOL TARTRATE 25 MG TAB PO SCH (18:02)
[2022-04-05] VITALS (7 sets, daily range): BP systolic 116–137; BP diastolic 48–72
[2022-04-05] MEDS: BUDESONIDE/FORMOTEROL FUMARATE 80/4.5MCG 6.9 GM INH AEROSOL IH SCH ×2 (07:00→19:00)
[2022-04-05] MEDS: LACTULOSE SYRUP 20 GM/30 ML UDC RC SCH ×2 (08:56→17:53)
[2022-04-05] MEDS: METOPROLOL TARTRATE 25 MG TAB PO SCH ×2 (08:57→17:53)
[2022-04-05] MEDS: MONTELUKAST SODIUM 10 MG TAB PO SCH (08:59)
[2022-04-05] MEDS: PANTOPRAZOLE SOD 40 MG TABEC PO SCH (08:59)
[2022-04-05] MEDS ORDERED: POTASSIUM CHLORIDE 20 MEQ TAB CR PO ONE (09:00)
[2022-04-05 09:16] LABS: ANION GAP 11.3 mmol/L (8-16); CALCIUM 8.5 mg/dL (8.4-10.2); CREATININE, SERUM 0.66 mg/dL (0.57-1.11); MAGNESIUM 2.3 MG/DL (1.3-2.1); POTASSIUM 3.3 mmol/L (3.5-5.1)
[2022-04-05] MEDS ORDERED: ONDANSETRON HCL 4 MG ORAL DISINTEGRATING TAB PO PRN (11:00)
[2022-04-05 15:48] LABS: APPEARANCE,CSF CLEAR (CLEAR); COLOR,CSF COLORLESS (COLORLESS); TUBE NUMBER 4
[2022-04-05 15:56] LABS: WHITE BLOOD CELL,CSF 1 cells/uL (0-5)
[2022-04-06] VITALS (7 sets, daily range): BP systolic 108–133; BP diastolic 49–79
[2022-04-06 05:34] LABS: BASOPHILS % 0.8 % (0.0-1.0); EOSINOPHILS # (AUTO) 0.2 (0.0-0.4); EOSINOPHILS % 3.6 % (0.0-6.0); HEMATOCRIT 34.6 % (34.2-44.1); LYMPHOCYTES # (AUTO) 2.5 (1.0-3.2); LYMPHOCYTES % 50.6 % (18.0-39.1); MEAN CORPUSCULAR HEMOGLOBIN 34.1 pg (28-32); MEAN CORPUSCULAR HGB CONC 34.7 g/dL (31-35); MEAN CORPUSCULAR VOLUME 98.3 fL (81-99); MONOCYTES # (AUTO) 0.5 (0.2-0.8); MONOCYTES % 10.1 % (4.4-11.3); NEUTROPHILS # (AUTO) 1.7 (2.1-6.9); NEUTROPHILS % 34.7 % (38.7-80.0); PLATELET COUNT 104 x10e3/uL (140-360); RED BLOOD COUNT 3.52 x10e6/uL (3.6-5.1); RED CELL DISTRIBUTION WIDTH 12.1 % (11.7-14.4)
[2022-04-06 06:00] LABS: ANION GAP 10.5 mmol/L (8-16); CALCIUM 8.3 mg/dL (8.4-10.2); CREATININE, SERUM 0.58 mg/dL (0.57-1.11); POTASSIUM 3.5 mmol/L (3.5-5.1)
[2022-04-06] MEDS: BUDESONIDE/FORMOTEROL FUMARATE 80/4.5MCG 6.9 GM INH AEROSOL IH SCH ×2 (07:00→19:00)
[2022-04-06] MEDS: PANTOPRAZOLE SOD 40 MG TABEC PO SCH (07:30)
[2022-04-06] MEDS: LACTULOSE SYRUP 20 GM/30 ML UDC RC SCH ×2 (09:00→17:00)
[2022-04-06] MEDS: MONTELUKAST SODIUM 10 MG TAB PO SCH (09:00)
[2022-04-06] MEDS: METOPROLOL TARTRATE 25 MG TAB PO SCH ×3 (09:00→21:12)
[2022-04-06] MEDS: FUROSEMIDE 40 MG TAB PO SCH (09:00)
[2022-04-06] MEDS ORDERED: ATORVASTATIN 40 MG TAB PO SCH (21:00)
[2022-04-07] VITALS: BP 138/65
[2022-04-07 04:00] VITALS: BP 111/50
[2022-04-07] MEDS: BUDESONIDE/FORMOTEROL FUMARATE 80/4.5MCG 6.9 GM INH AEROSOL IH SCH (07:00)
[2022-04-07] MEDS: PANTOPRAZOLE SOD 40 MG TABEC PO SCH (07:30)
[2022-04-07 08:38] VITALS: BP 108/64
[2022-04-07] MEDS: METOPROLOL TARTRATE 25 MG TAB PO SCH (09:00)
[2022-04-07] MEDS: FUROSEMIDE 40 MG TAB PO SCH (09:00)
[2022-04-07] MEDS: MONTELUKAST SODIUM 10 MG TAB PO SCH (09:00)
[2022-04-07] MEDS ORDERED: ASPIRIN 81 MG ENTERIC COATED PO SCH (09:00)
[2022-04-07] MEDS: LACTULOSE SYRUP 20 GM/30 ML UDC RC SCH (09:00)
[2022-04-07 11:14] VITALS: BP 108/64
[2022-04-07 12:48] VITALS: BP 106/51
[2022-04-09 17:10] LABS: IGG/ALB RATIO CSF 0.28 (0.00-0.25)
[2022-04-09 21:58] LABS: CSF/SERUM ALBUMIN INDEX 6 (0-8)
== END 2022-04-07 14:22 | disposition home or self-care (01) | DRG 689 ==
LOC: ER 15:34 → ERHOLD 18:06 → MED/SURG 20:34
PROVIDERS: ADMIT Internal Medicine; ATTEND Internal Medicine
PROC: 009U3ZX Drainage of Spinal Canal, Percutaneous Approach, Diagnostic (ICD-10-PCS; principal; 2022-04-05)
DX: N39.0 Urinary tract infection, site not specified (principal); G92.8 Other toxic encephalopathy; I50.33 Acute on chronic diastolic (congestive) heart failure; I69.354 Hemiplegia and hemiparesis following cerebral infarction affecting left non-dominant side; G45.9 Transient cerebral ischemic attack, unspecified; K74.60 Unspecified cirrhosis of liver; K21.9 Gastro-esophageal reflux disease without esophagitis; E87.8 Other disorders of electrolyte and fluid balance, not elsewhere classified; I25.10 Atherosclerotic heart disease of native coronary artery without angina pectoris; I11.0 Hypertensive heart disease with heart failure; J44.9 Chronic obstructive pulmonary disease, unspecified; R00.0 Tachycardia, unspecified; E87.6 Hypokalemia; E83.42 Hypomagnesemia; B96.20 Unspecified Escherichia coli [E. coli] as the cause of diseases classified elsewhere; Z20.822 Contact with and (suspected) exposure to COVID-19; K72.90 Hepatic failure, unspecified without coma; E78.5 Hyperlipidemia, unspecified
CPT/HCPCS: 0223U; 36415; 62328; 70496; 70498; 70551; 71045; 72141; 74230; 74470; 80048; 80053; 81001; 82040; 82140; 82550; 82553; 82784; 82945; 83735; 83880; 83916; 84157; 84484; 85025; 85610; 85730; 86592; 86789; 87040; 87070; 87086; 87186; 87205; 89051; 93005; 93306; 94799; 95819; 99251; 99284; J0696; J2405; J3475; J7030; J7050; Q9967

== ENCOUNTER 2022-04-13 12:35 | Inpatient (IN) | payer MEDICARE ==
[~2022-04-13] VITALS: Ht 154.9 cm; Wt 94.3 kg
[2022-04-13 15:01] LABS: BASOPHILS % 0.9 % (0.0-1.0); EOSINOPHILS % 0.2 % (0.0-6.0); HEMATOCRIT 40.8 % (34.2-44.1); HEMOGLOBIN 14.4 g/dL (12.0-16.0); LYMPHOCYTES # (AUTO) 1.1 (1.0-3.2); LYMPHOCYTES % 26.1 % (18.0-39.1); MEAN CORPUSCULAR HGB CONC 35.3 g/dL (31-35); MEAN CORPUSCULAR VOLUME 96.2 fL (81-99); MONOCYTES # (AUTO) 0.3 (0.2-0.8); MONOCYTES % 7.1 % (4.4-11.3); NEUTROPHILS # (AUTO) 2.9 (2.1-6.9); NEUTROPHILS % 65.5 % (38.7-80.0); PLATELET COUNT 141 x10e3/uL (140-360); RED BLOOD COUNT 4.24 x10e6/uL (3.6-5.1); RED CELL DISTRIBUTION WIDTH 13.1 % (11.7-14.4)
[2022-04-13 15:17] LABS: ALANINE AMINOTRANSFERASE 32 IU/L (0-55); ALBUMIN 3.2 g/dL (3.5-5.0); ALBUMIN/GLOBULIN RATIO 0.8 (0.8-2.0); ALKALINE PHOSPHATASE 115 IU/L (40-150); ANION GAP 13.7 mmol/L (8-16); BLOOD UREA NITROGEN 15 mg/dL (7-26); BUN/CREATININE RATIO 23 (6-25); CALCIUM 8.9 mg/dL (8.4-10.2); CARBON DIOXIDE 24 mmol/L (22-29); CHLORIDE 106 mmol/L (98-107); CREATININE, SERUM 0.65 mg/dL (0.57-1.11); GLUCOSE 120 mg/dL (74-118); POTASSIUM 3.7 mmol/L (3.5-5.1); SODIUM 140 mmol/L (136-145)
[2022-04-13 16:17] LABS: CLARITY,URINE SL CLOUDY (CLEAR); COLOR,URINE AMBER (YELLOW); KETONES,URINE TRACE (NEGATIVE); LEUKOCYTE ESTERASE ,URINE NEGATIVE (NEGATIVE); NITRITE,URINE NEGATIVE (NEGATIVE); PROTEIN,URINE DIPSTICK NEGATIVE (NEGATIVE); URINE UROBILINOGEN 1 mg/dL (0.2 - 1)
[2022-04-13 16:29] LABS: BACTERIA,URINE MODERATE /HPF; EPITHELIAL CELLS,URINE FEW /LPF; RBC,URINE 0-5 /HPF (0-5); WBC,URINE (MAN) 0-5 /HPF (0-5)
[2022-04-13] MEDS ORDERED: SODIUM CHLORIDE 0.9% 500ML 500 ML IV ONE (17:15)
[2022-04-13] MEDS ORDERED: LACTULOSE SYRUP 20 GM/30 ML UDC PO PRN (17:45)
[2022-04-13] MEDS ORDERED: ONDANSETRON HCL INJ 2MG/ML 2ML 2 MG/ML VIAL IV PRN (17:45)
[2022-04-13] MEDS: SODIUM CHLORIDE 0.9% 1000ML 1,000 ML IV SCH (17:55)
[2022-04-14] VITALS (9 sets, daily range): BP systolic 121–152; BP diastolic 67–88
[2022-04-14] MEDS: SODIUM CHLORIDE 0.9% 1000ML 1,000 ML IV SCH ×4 (02:45→19:55)
[2022-04-14 08:34] LABS: BASOPHILS # (AUTO) 0.1 (0.0-0.1); BASOPHILS % 0.9 % (0.0-1.0); EOSINOPHILS # (AUTO) 0.2 (0.0-0.4); HEMATOCRIT 39.2 % (34.2-44.1); HEMOGLOBIN 13.2 g/dL (12.0-16.0); LYMPHOCYTES % 54.6 % (18.0-39.1); MEAN CORPUSCULAR HGB CONC 33.7 g/dL (31-35); MONOCYTES # (AUTO) 0.6 (0.2-0.8); MONOCYTES % 10.4 % (4.4-11.3); NEUTROPHILS # (AUTO) 1.7 (2.1-6.9); NEUTROPHILS % 30.9 % (38.7-80.0); PLATELET COUNT 126 x10e3/uL (140-360); RED BLOOD COUNT 3.88 x10e6/uL (3.6-5.1); RED CELL DISTRIBUTION WIDTH 12.8 % (11.7-14.4)
[2022-04-14 09:03] LABS: ALBUMIN 2.8 g/dL (3.5-5.0); ALBUMIN/GLOBULIN RATIO 0.8 (0.8-2.0); ANION GAP 11.4 mmol/L (8-16); CALCIUM 8.8 mg/dL (8.4-10.2); CREATININE, SERUM 0.6 mg/dL (0.57-1.11); POTASSIUM 3.4 mmol/L (3.5-5.1)
[2022-04-14] MEDS ORDERED: POTASSIUM CHLORIDE 20 MEQ TAB CR PO PRN (14:30)
[2022-04-14] MEDS ORDERED: HYDRALAZINE HCL 20 MG/ML VIAL IV PRN (14:30)
[2022-04-14] MEDS ORDERED: LIDOCAINE 4% PATCH TP PRN (14:30)
[2022-04-14] MEDS ORDERED: DOCUSATE SODIUM 100 MG CAP PO PRN (14:30)
[2022-04-14] MEDS ORDERED: ACETAMINOPHEN 325 MG TAB PO PRN (14:30)
[2022-04-14] MEDS ORDERED: DIPHENHYDRAMINE HCL 25 MG CAP PO PRN (14:30)
[2022-04-14] MEDS ORDERED: SIMETHICONE 80 MG CHEW PO PRN (14:30)
[2022-04-14] MEDS ORDERED: BENZONATATE 100 MG CAP PO PRN (14:30)
[2022-04-14] MEDS ORDERED: DEXTROSE 50% SYRINGE 50 ML IV PRN (14:30)
[2022-04-14] MEDS: ENOXAPARIN SOD INJ 40 MG/0.4 ML SYR SC SCH (17:28)
[2022-04-14] MEDS ORDERED: MELATONIN 5 MG TABLET PO PRN (21:00)
[2022-04-15] VITALS (8 sets, daily range): BP systolic 109–153; BP diastolic 44–74
[2022-04-15 05:17] LABS: BASOPHILS # (AUTO) 0.1 (0.0-0.1); BASOPHILS % 1.1 % (0.0-1.0); EOSINOPHILS # (AUTO) 0.2 (0.0-0.4); EOSINOPHILS % 4.5 % (0.0-6.0); LYMPHOCYTES # (AUTO) 2.8 (1.0-3.2); MEAN CORPUSCULAR HGB CONC 35.5 g/dL (31-35); MONOCYTES # (AUTO) 0.5 (0.2-0.8); MONOCYTES % 11.6 % (4.4-11.3); NEUTROPHILS # (AUTO) 1.1 (2.1-6.9); NEUTROPHILS % 22.6 % (38.7-80.0); PLATELET COUNT 106 x10e3/uL (140-360); RED BLOOD COUNT 3.24 x10e6/uL (3.6-5.1)
[2022-04-15 05:27] LABS: MEAN CORPUSCULAR VOLUME 95.7 fL (81-99)
[2022-04-15 05:47] LABS: ANION GAP 9.3 mmol/L (8-16); CALCIUM 7.9 mg/dL (8.4-10.2); CHOL/HDL RATIO 3.3 (3.0-3.6); CREATININE, SERUM 0.51 mg/dL (0.57-1.11); MAGNESIUM 2.1 MG/DL (1.3-2.1); PHOSPHORUS 2.6 MG/DL (2.3-4.7); POTASSIUM 3.3 mmol/L (3.5-5.1)
[2022-04-15 06:07] LABS: THYROID STIMULATING HORMONE 2.49 uIU/mL (0.350-4.940)
[2022-04-15] MEDS: SODIUM CHLORIDE 0.9% 1000ML 1,000 ML IV SCH (08:37)
[2022-04-15] MEDS: MONTELUKAST SODIUM 10 MG TAB PO SCH (08:40)
[2022-04-15] MEDS: LACTULOSE SYRUP 20 GM/30 ML UDC PO SCH ×2 (08:40→16:03)
[2022-04-15] MEDS: CARVEDILOL 3.125 MG TAB PO SCH (08:41)
[2022-04-15] MEDS: LOSARTAN POTASSIUM 25 MG TAB PO SCH (08:42)
[2022-04-15] MEDS: PANTOPRAZOLE SOD 40 MG TABEC PO SCH (08:42)
[2022-04-15] MEDS: ONDANSETRON HCL 4 MG ORAL DISINTEGRATING TAB PO SCH ×2 (08:42→16:03)
[2022-04-15] MEDS ORDERED: PANTOPRAZOLE SOD 40 MG TABEC PO SCH (09:00)
[2022-04-15] MEDS: ALBUTEROL/IPRATROPIUM 3 ML NEB NEB PRN ×2 (10:28→19:30)
[2022-04-15] MEDS: ENOXAPARIN SOD INJ 40 MG/0.4 ML SYR SC SCH (16:30)
[2022-04-16] VITALS (8 sets, daily range): BP systolic 115–147; BP diastolic 43–77
[2022-04-16] MEDS: SODIUM CHLORIDE 0.9% 1000ML 1,000 ML IV SCH ×2 (03:16→08:26)
[2022-04-16 05:34] LABS: BASOPHILS # (AUTO) 0.1 (0.0-0.1); BASOPHILS % 1.4 % (0.0-1.0); EOSINOPHILS # (AUTO) 0.3 (0.0-0.4); EOSINOPHILS % 6.4 % (0.0-6.0); HEMATOCRIT 32.1 % (34.2-44.1); HEMOGLOBIN 11.1 g/dL (12.0-16.0); LYMPHOCYTES # (AUTO) 2.5 (1.0-3.2); LYMPHOCYTES % 58.8 % (18.0-39.1); MEAN CORPUSCULAR HEMOGLOBIN 34.7 pg (28-32); MEAN CORPUSCULAR HGB CONC 34.6 g/dL (31-35); MEAN CORPUSCULAR VOLUME 100.3 fL (81-99); MONOCYTES # (AUTO) 0.4 (0.2-0.8); MONOCYTES % 10.2 % (4.4-11.3); PLATELET COUNT 111 x10e3/uL (140-360); RED CELL DISTRIBUTION WIDTH 13.2 % (11.7-14.4)
[2022-04-16 06:01] LABS: ANION GAP 9.5 mmol/L (8-16); CREATININE, SERUM 0.57 mg/dL (0.57-1.11); POTASSIUM 3.5 mmol/L (3.5-5.1)
[2022-04-16 07:05] LABS: EOSINOPHILS % (MANUAL) 6 % (0-7); LYMPHOCYTES % (MANUAL) 58 % (19-48); MONOCYTES % (MANUAL) 2 % (3.4-9.0); MYELOCYTES % (MANUAL) 1 % (0-0); NEUTROPHILS % (MANUAL) 28 % (40-74)
[2022-04-16 07:07] LABS: PLATELET ESTIMATE ADEQUATE
[2022-04-16 07:09] LABS: PLATELET MORPHOLOGY COMMENT FEW LARGE; RBC MORPHOLOGY COMMENT NORMAL
[2022-04-16 07:11] LABS: HYPOCHROMASIA SLIGHT
[2022-04-16] MEDS: ALBUTEROL/IPRATROPIUM 3 ML NEB NEB PRN ×2 (07:11→19:05)
[2022-04-16 07:13] LABS: OVALOCYTES FEW
[2022-04-16] MEDS: PANTOPRAZOLE SOD 40 MG TABEC PO SCH (08:21)
[2022-04-16] MEDS: LOSARTAN POTASSIUM 25 MG TAB PO SCH (08:22)
[2022-04-16] MEDS: LACTULOSE SYRUP 20 GM/30 ML UDC PO SCH ×2 (08:25→17:00)
[2022-04-16] MEDS: ONDANSETRON HCL 4 MG ORAL DISINTEGRATING TAB PO SCH ×2 (08:25→17:18)
[2022-04-16] MEDS: MONTELUKAST SODIUM 10 MG TAB PO SCH (08:25)
[2022-04-16] MEDS: CARVEDILOL 3.125 MG TAB PO SCH (08:26)
[2022-04-16] MEDS ORDERED: IOPAMIDOL 370 MG/ML 100 ML INFUS..BTL INJ ONE (11:18)
[2022-04-16] MEDS ORDERED: ONDANSETRON HCL 4 MG ORAL DISINTEGRATING TAB PO PRN (11:45)
[2022-04-16] MEDS: ENOXAPARIN SOD INJ 40 MG/0.4 ML SYR SC SCH (17:17)
[2022-04-17] VITALS (7 sets, daily range): BP systolic 101–133; BP diastolic 46–72
[2022-04-17] MEDS ORDERED: HYDROXYZINE HCL 10 MG TAB PO PRN (08:15)
[2022-04-17] MEDS: PANTOPRAZOLE SOD 40 MG TABEC PO SCH (09:21)
[2022-04-17] MEDS: CYANOCOBALAMIN INJ 1,000 MCG/ML VIAL IM SCH (09:22)
[2022-04-17] MEDS: POTASSIUM CHLORIDE 10MEQ EA PO SCH (09:23)
[2022-04-17] MEDS: CARVEDILOL 3.125 MG TAB PO SCH ×2 (09:23→16:50)
[2022-04-17] MEDS: LACTULOSE SYRUP 20 GM/30 ML UDC PO SCH ×2 (09:23→16:50)
[2022-04-17] MEDS: FUROSEMIDE 40 MG TAB PO SCH (09:24)
[2022-04-17] MEDS: MONTELUKAST SODIUM 10 MG TAB PO SCH (09:24)
[2022-04-17] MEDS: ONDANSETRON HCL 4 MG ORAL DISINTEGRATING TAB PO SCH ×2 (09:24→17:53)
[2022-04-17] MEDS: MIDODRINE 2.5 MG TAB PO SCH ×3 (09:37→16:00)
[2022-04-17] MEDS: ENOXAPARIN SOD INJ 40 MG/0.4 ML SYR SC SCH (16:50)
[2022-04-18] VITALS: BP 102/45
[2022-04-18 04:00] VITALS: BP 106/44
[2022-04-18 04:59] LABS: BASOPHILS % 0.9 % (0.0-1.0); EOSINOPHILS # (AUTO) 0.4 (0.0-0.4); EOSINOPHILS % 7.9 % (0.0-6.0); HEMATOCRIT 32.3 % (34.2-44.1); LYMPHOCYTES # (AUTO) 2.6 (1.0-3.2); LYMPHOCYTES % 54.8 % (18.0-39.1); MEAN CORPUSCULAR HEMOGLOBIN 34.4 pg (28-32); MEAN CORPUSCULAR HGB CONC 34.1 g/dL (31-35); MEAN CORPUSCULAR VOLUME 100.9 fL (81-99); MONOCYTES # (AUTO) 0.4 (0.2-0.8); MONOCYTES % 8.7 % (4.4-11.3); NEUTROPHILS # (AUTO) 1.3 (2.1-6.9); NEUTROPHILS % 27.7 % (38.7-80.0); PLATELET COUNT 117 x10e3/uL (140-360)
[2022-04-18 05:15] LABS: ANION GAP 11.4 mmol/L (8-16); CREATININE, SERUM 0.62 mg/dL (0.57-1.11); POTASSIUM 3.4 mmol/L (3.5-5.1)
[2022-04-18 08:11] VITALS: BP 117/55
[2022-04-18] MEDS: LACTULOSE SYRUP 20 GM/30 ML UDC PO SCH (08:36)
[2022-04-18] MEDS: MONTELUKAST SODIUM 10 MG TAB PO SCH (08:37)
[2022-04-18] MEDS: CARVEDILOL 3.125 MG TAB PO SCH (08:37)
[2022-04-18] MEDS: PANTOPRAZOLE SOD 40 MG TABEC PO SCH (08:38)
[2022-04-18] MEDS: FUROSEMIDE 40 MG TAB PO SCH (08:38)
[2022-04-18] MEDS: POTASSIUM CHLORIDE 10MEQ EA PO SCH (08:38)
[2022-04-18] MEDS: MIDODRINE 2.5 MG TAB PO SCH (08:38)
[2022-04-18] MEDS: CYANOCOBALAMIN INJ 1,000 MCG/ML VIAL IM SCH (08:38)
[2022-04-18] MEDS: ONDANSETRON HCL 4 MG ORAL DISINTEGRATING TAB PO SCH (08:39)
[2022-04-18 09:18] VITALS: BP 117/55
== END 2022-04-18 11:25 | disposition home or self-care (01) | DRG 641 ==
LOC: ER 12:55 → ERHOLD 17:43 → MED/SURG2 04-14 01:18
PROVIDERS: ADMIT Internal Medicine; ATTEND Internal Medicine
DX: E86.0 Dehydration (principal); K76.6 Portal hypertension; N39.0 Urinary tract infection, site not specified; J44.1 Chronic obstructive pulmonary disease with (acute) exacerbation; I69.351 Hemiplegia and hemiparesis following cerebral infarction affecting right dominant side; R10.9 Unspecified abdominal pain; K76.0 Fatty (change of) liver, not elsewhere classified; K74.60 Unspecified cirrhosis of liver; D63.8 Anemia in other chronic diseases classified elsewhere; F32.A Depression, unspecified; B96.20 Unspecified Escherichia coli [E. coli] as the cause of diseases classified elsewhere; R26.9 Unspecified abnormalities of gait and mobility; Z20.822 Contact with and (suspected) exposure to COVID-19; E11.9 Type 2 diabetes mellitus without complications; G51.0 Bell's palsy; G89.29 Other chronic pain
CPT/HCPCS: 0223U; 36415; 70450; 71045; 74018; 74177; 80048; 80053; 80061; 81001; 82140; 82948; 83036; 83735; 84100; 84443; 84484; 85025; 87086; 93005; 94640; 94799; 99284; J0696; J1650; J3420; J7030; J7040; Q0162; Q9967

== ENCOUNTER 2022-07-30 21:13 | Emergency (ER) | payer MEDICARE ==
[~2022-07-30] VITALS: Ht 154.9 cm; Wt 94.3 kg
[2022-07-30 22:01] LABS: BASOPHILS # (AUTO) 0.1 (0.0-0.1); BASOPHILS % 0.7 % (0.0-1.0); EOSINOPHILS # (AUTO) 0.2 (0.0-0.4); EOSINOPHILS % 2.1 % (0.0-6.0); HEMATOCRIT 40.6 % (34.2-44.1); HEMOGLOBIN 14.2 g/dL (12.0-16.0); LYMPHOCYTES # (AUTO) 2.8 (1.0-3.2); LYMPHOCYTES % 32.2 % (18.0-39.1); MEAN CORPUSCULAR HEMOGLOBIN 33.8 pg (28-32); MEAN CORPUSCULAR VOLUME 96.7 fL (81-99); NEUTROPHILS # (AUTO) 4.7 (2.1-6.9); NEUTROPHILS % 53.8 % (38.7-80.0); PLATELET COUNT 143 x10e3/uL (140-360); RED CELL DISTRIBUTION WIDTH 12.2 % (11.7-14.4)
[2022-07-30 22:13] LABS: CLARITY,URINE SL CLOUDY (CLEAR); COLOR,URINE AMBER (YELLOW); KETONES,URINE TRACE (NEGATIVE); LEUKOCYTE ESTERASE ,URINE NEGATIVE (NEGATIVE); NITRITE,URINE NEGATIVE (NEGATIVE); PROTEIN,URINE DIPSTICK 1+ (NEGATIVE)
[2022-07-30 22:18] LABS: ALBUMIN 3.1 g/dL (3.5-5.0); ALBUMIN/GLOBULIN RATIO 0.8 (0.8-2.0); AMORPHOUS SEDIMENT,URINE FEW (FEW); ANION GAP 16.3 mmol/L (8-16); BACTERIA,URINE FEW /HPF; CALCIUM 9.1 mg/dL (8.4-10.2); CREATININE, SERUM 0.92 mg/dL (0.57-1.11); EPITHELIAL CELLS,URINE MANY /LPF; MUCUS,URINE FEW (RARE); POTASSIUM 4.3 mmol/L (3.5-5.1); RBC,URINE 0-5 /HPF (0-5); WBC,URINE (MAN) 0-5 /HPF (0-5)
[2022-07-30 22:25] LABS: CREATINE KINASE MB 1.1 ng/mL (0-5.0)
[2022-07-30] MEDS ORDERED: ONDANSETRON HCL INJ 2MG/ML 2ML 2 MG/ML VIAL IV STA (22:31)
[2022-07-30] MEDS ORDERED: IOPAMIDOL 370 MG/ML 100 ML INFUS..BTL INJ ONE (22:42)
[2022-07-30] MEDS ORDERED: ONDANSETRON ODT4 MG PO (23:47)
[2022-07-31 00:16] VITALS: BP 102/53
== END 2022-07-31 00:15 | disposition home or self-care (01) ==
LOC: ER 21:16
DX: R10.30 Lower abdominal pain, unspecified (principal); R11.2 Nausea with vomiting, unspecified; I10 Essential (primary) hypertension; J44.9 Chronic obstructive pulmonary disease, unspecified; I50.9 Heart failure, unspecified; J45.909 Unspecified asthma, uncomplicated; K76.9 Liver disease, unspecified; R94.31 Abnormal electrocardiogram [ECG] [EKG]
CPT/HCPCS: 36415; 74177; 80053; 81001; 82550; 82553; 83690; 84484; 85025; 93005; 99284; J2405; Q9967

== ENCOUNTER → 2022-08-21 | Day surgery (SDC) | payer MEDICARE ==
[2022-08-16 14:42] LABS: INR 1.16
[2022-08-16 14:43] LABS: PARTIAL THROMBOPLASTIN TIME 35.6 seconds (23.8-35.5)
[~2022-08-21] MED LIST changes: +GLUCAGON FOR INJ 1 MG VIAL ONE; +LIDOCAINE HCL 2% LOCAL INJ 5 ML SDV VIAL INJ ONE; +NITROGLYCERIN0.4 MG SL; +POVIDONE IODINE 0.05% 0.05 % ML PO ONE; +PROPOFOL IV EMULSION 50 ML IV ONE
[2022-08-21 14:26] VITALS: BP 132/71
== END | disposition home or self-care (01) ==
LOC: OR 09:56
PROVIDERS: ATTEND Internal Medicine Gastroenterology
DX: Z12.11 Encounter for screening for malignant neoplasm of colon (principal); D12.2 Benign neoplasm of ascending colon; D12.4 Benign neoplasm of descending colon; K63.89 Other specified diseases of intestine; K30 Functional dyspepsia; K31.89 Other diseases of stomach and duodenum; K31.A0 Gastric intestinal metaplasia, unspecified; K21.9 Gastro-esophageal reflux disease without esophagitis; R13.10 Dysphagia, unspecified; K74.60 Unspecified cirrhosis of liver; R63.4 Abnormal weight loss; E11.9 Type 2 diabetes mellitus without complications; I11.0 Hypertensive heart disease with heart failure; I50.9 Heart failure, unspecified; J44.9 Chronic obstructive pulmonary disease, unspecified; R89.4 Abnormal immunological findings in specimens from other organs, systems and tissues; E73.9 Lactose intolerance, unspecified; Z68.31 Body mass index [BMI] 31.0-31.9, adult; Z86.79 Personal history of other diseases of the circulatory system; Z80.0 Family history of malignant neoplasm of digestive organs
CPT/HCPCS: 36415 ×2; 43235; 45385; 82948; 85610; 85730; 88305; J1610; J2001; J2704; 43239

== ENCOUNTER → 2022-09-25 | Day surgery (SDC) | payer MEDICARE ==
[~2022-09-25] MED LIST changes: +FENTANYL CITRATE/PF 100MCG/2 ML INJ ONE; -GLUCAGON FOR INJ 1 MG VIAL ONE; -POVIDONE IODINE 0.05% 0.05 % ML PO ONE; +PROPOFOL IV EMULSION 10 MG/ML 20 ML VIAL ONE; -PROPOFOL IV EMULSION 50 ML IV ONE
[2022-09-25 06:57] LABS: BASOPHILS # (AUTO) 0.1 (0.0-0.1); BASOPHILS % 0.9 % (0.0-1.0); EOSINOPHILS # (AUTO) 0.2 (0.0-0.4); EOSINOPHILS % 3.7 % (0.0-6.0); HEMATOCRIT 35.6 % (34.2-44.1); HEMOGLOBIN 12.2 g/dL (12.0-16.0); LYMPHOCYTES # (AUTO) 2.4 (1.0-3.2); LYMPHOCYTES % 41.9 % (18.0-39.1); MEAN CORPUSCULAR HEMOGLOBIN 33.8 pg (28-32); MEAN CORPUSCULAR HGB CONC 34.3 g/dL (31-35); MEAN CORPUSCULAR VOLUME 98.6 fL (81-99); MONOCYTES # (AUTO) 0.6 (0.2-0.8); MONOCYTES % 10.6 % (4.4-11.3); NEUTROPHILS # (AUTO) 2.4 (2.1-6.9); NEUTROPHILS % 42.7 % (38.7-80.0); PLATELET COUNT 130 x10e3/uL (140-360); RED BLOOD COUNT 3.61 x10e6/uL (3.6-5.1); RED CELL DISTRIBUTION WIDTH 12.8 % (11.7-14.4)
[2022-09-25 07:06] LABS: INR 1.11; PROTHROMBIN TIME 14.8 seconds (11.9-14.5)
[2022-09-25 07:07] LABS: PARTIAL THROMBOPLASTIN TIME 36.9 seconds (23.8-35.5)
[2022-09-25 07:14] LABS: ALBUMIN 2.8 g/dL (3.5-5.0); ALBUMIN/GLOBULIN RATIO 0.8 (0.8-2.0); ANION GAP 9.8 mmol/L (8-16); CALCIUM 8.8 mg/dL (8.4-10.2); CREATININE, SERUM 0.79 mg/dL (0.57-1.11); POTASSIUM 3.8 mmol/L (3.5-5.1)
[2022-09-25 10:00] VITALS: BP 156/87
== END | disposition home or self-care (01) ==
LOC: OR 06:10
PROVIDERS: ATTEND Internal Medicine Gastroenterology
DX: R13.10 Dysphagia, unspecified (principal); K29.60 Other gastritis without bleeding; K29.50 Unspecified chronic gastritis without bleeding; K22.89 Other specified disease of esophagus; K44.9 Diaphragmatic hernia without obstruction or gangrene; K74.60 Unspecified cirrhosis of liver; K21.9 Gastro-esophageal reflux disease without esophagitis; K31.A0 Gastric intestinal metaplasia, unspecified; R89.4 Abnormal immunological findings in specimens from other organs, systems and tissues; E73.9 Lactose intolerance, unspecified; E74.10 Disorder of fructose metabolism, unspecified; J44.9 Chronic obstructive pulmonary disease, unspecified; I11.0 Hypertensive heart disease with heart failure; I50.9 Heart failure, unspecified; Z79.82 Long term (current) use of aspirin; Z79.899 Other long term (current) drug therapy; Z68.31 Body mass index [BMI] 31.0-31.9, adult; Z86.79 Personal history of other diseases of the circulatory system; Z80.0 Family history of malignant neoplasm of digestive organs
CPT/HCPCS: 36415; 43239; 80053; 82948; 85025; 85610; 85730; 88305; 88342; 93005; J2001; J2704; J3010; 88304; 88312

== ENCOUNTER 2023-08-12 12:49 | Inpatient (IN) | payer MEDICARE ==
[~2023-08-12] VITALS: Ht 154.9 cm; Wt 94.3 kg
[~2023-08-12 12:49] MED LIST changes: -FENTANYL CITRATE/PF 100MCG/2 ML INJ ONE; -LIDOCAINE HCL 2% LOCAL INJ 5 ML SDV VIAL INJ ONE; -PROPOFOL IV EMULSION 10 MG/ML 20 ML VIAL ONE
[2023-08-12 14:31] LABS: BASOPHILS # (AUTO) 0.1 (0.0-0.1); BASOPHILS % 0.7 % (0.0-1.0); EOSINOPHILS # (AUTO) 0.2 (0.0-0.4); HEMATOCRIT 43.3 % (34.2-44.1); HEMOGLOBIN 14.4 g/dL (12.0-16.0); LYMPHOCYTES # (AUTO) 3.6 (1.0-3.2); LYMPHOCYTES % 44.8 % (18.0-39.1); MEAN CORPUSCULAR HEMOGLOBIN 33.3 pg (28-32); MEAN CORPUSCULAR HGB CONC 33.3 g/dL (31-35); MEAN CORPUSCULAR VOLUME 100.2 fL (81-99); MONOCYTES # (AUTO) 0.7 (0.2-0.8); MONOCYTES % 9.1 % (4.4-11.3); NEUTROPHILS # (AUTO) 3.5 (2.1-6.9); NEUTROPHILS % 43.2 % (38.7-80.0); PLATELET COUNT 133 x10e3/uL (140-360); RED BLOOD COUNT 4.32 x10e6/uL (3.6-5.1); RED CELL DISTRIBUTION WIDTH 12.7 % (11.7-14.4); WHITE BLOOD COUNT 8.03 x10e3/uL (4.8-10.8)
[2023-08-12 14:49] LABS: ALBUMIN/GLOBULIN RATIO 0.8 (0.8-2.0); BILIRUBIN,TOTAL 2.9 mg/dL (0.2-1.2); CALCIUM 8.9 mg/dL (8.4-10.2); CREATININE, SERUM 0.65 mg/dL (0.57-1.11); TOTAL PROTEIN 6.9 g/dL (6.5-8.1)
[2023-08-12 14:54] LABS: B-TYPE NATRIURETIC PEPTIDE2 516.7 pg/mL (0-100); BILIRUBIN,URINE NEGATIVE (NEGATIVE); CLARITY,URINE SL CLOUDY (CLEAR); COLOR,URINE YELLOW (YELLOW); GLUCOSE, URINE NEGATIVE (NEGATIVE); KETONES,URINE NEGATIVE (NEGATIVE); LEUKOCYTE ESTERASE ,URINE NEGATIVE (NEGATIVE); NITRITE,URINE NEGATIVE (NEGATIVE); PH,URINE 6 (5 - 7); PROTEIN,URINE DIPSTICK NEGATIVE (NEGATIVE); TROPONIN I 0.079 ng/mL (0-0.300); URINE UROBILINOGEN 0.2 mg/dL (0.2 - 1)
[2023-08-12 15:03] LABS: AMPHETAMINES SCREEN,URINE NEGATIVE (NEGATIVE); BENZODIAZEPINES SCREEN,URINE NEGATIVE (NEGATIVE); CANNABINOIDS SCREEN,URINE NEGATIVE (NEGATIVE); METHADONE SCREEN, URINE NEGATIVE (NEGATIVE); OPIATES SCREEN,URINE NEGATIVE (NEGATIVE); PHENCYCLIDINE SCREEN,URINE NEGATIVE (NEGATIVE)
[2023-08-12 15:07] LABS: AMORPHOUS SEDIMENT,URINE FEW (FEW); BACTERIA,URINE MODERATE /HPF; EPITHELIAL CELLS,URINE FEW /LPF; MUCUS,URINE FEW (RARE)
[2023-08-12] MEDS ORDERED: IOPAMIDOL 370 MG/ML 100 ML INFUS..BTL INJ ONE (15:52)
[2023-08-12] MEDS: LACTULOSE SYRUP 20 GM/30 ML UDC PO STA (16:31)
[2023-08-12] MEDS ORDERED: ONDANSETRON HCL INJ 2MG/ML 2ML 2 MG/ML VIAL IV PRN (16:45)
[2023-08-12] MEDS ORDERED: Morphine 4mg INJECTION 4 MG/ML INJ IV PRN (16:45)
[2023-08-12 17:08] LABS: INFLUENZAE A&B ANTIGEN (RAPID) NEGATIVE (NEGATIVE); RESPIRATORY SYNC. VIRUS NEGATIVE (NEGATIVE)
[2023-08-12 19:20] VITALS: PULSE 58; RESP 16; O2SAT 98
[2023-08-12 20:21] VITALS: BP 115/65; PULSE 66; RESP 18; TEMP 97.8; O2SAT 98
[2023-08-12 21:00] VITALS: BP 115/65; PULSE 66; RESP 18; TEMP 97.8
[2023-08-13] VITALS (12 sets, daily range): BP systolic 120–146; BP diastolic 61–67; PULSE 64–74; RESP 16–20; TEMP 97.7–98.9; O2SAT 96–100
[2023-08-13 06:14] LABS: BASOPHILS # (AUTO) 0.1 (0.0-0.1); BASOPHILS % 0.9 % (0.0-1.0); EOSINOPHILS # (AUTO) 0.2 (0.0-0.4); EOSINOPHILS % 2.8 % (0.0-6.0); HEMATOCRIT 37.1 % (34.2-44.1); HEMOGLOBIN 12.6 g/dL (12.0-16.0); LYMPHOCYTES # (AUTO) 3.1 (1.0-3.2); LYMPHOCYTES % 47.1 % (18.0-39.1); MEAN CORPUSCULAR HEMOGLOBIN 34.2 pg (28-32); MEAN CORPUSCULAR VOLUME 100.8 fL (81-99); MONOCYTES # (AUTO) 0.8 (0.2-0.8); MONOCYTES % 11.5 % (4.4-11.3); NEUTROPHILS # (AUTO) 2.4 (2.1-6.9); NEUTROPHILS % 37.5 % (38.7-80.0); PLATELET COUNT 121 x10e3/uL (140-360); RED BLOOD COUNT 3.68 x10e6/uL (3.6-5.1); RED CELL DISTRIBUTION WIDTH 12.9 % (11.7-14.4)
[2023-08-13 06:42] LABS: ALBUMIN 2.7 g/dL (3.5-5.0); ALBUMIN/GLOBULIN RATIO 0.8 (0.8-2.0); ANION GAP 10.5 mmol/L (8-16); BILIRUBIN,TOTAL 2.8 mg/dL (0.2-1.2); CALCIUM 8.3 mg/dL (8.4-10.2); CREATININE, SERUM 0.63 mg/dL (0.57-1.11); POTASSIUM 3.5 mmol/L (3.5-5.1); TOTAL PROTEIN 5.9 g/dL (6.5-8.1)
[2023-08-13 07:11] LABS: TROPONIN I 0.065 ng/mL (0-0.300)
[2023-08-13] MEDS ORDERED: SPIRONOLACTONE25 MG PO (07:15)
[2023-08-13] MEDS ORDERED: ATORVASTATIN CA20 MG PO (07:17)
[2023-08-13] MEDS ORDERED: ACETAMINOPHEN 325 MG TAB PO PRN (10:45)
[2023-08-13] MEDS ORDERED: NITROGLYCERIN 0.4 MG SUBL SL PRN (10:45)
[2023-08-13] MEDS: LACTULOSE SYRUP 20 GM/30 ML UDC PO SCH (11:58)
[2023-08-13] MEDS: SPIRONOLACTONE 25 MG TAB PO SCH (11:59)
[2023-08-13] MEDS: POTASSIUM CHLORIDE 10MEQ EA PO SCH (11:59)
[2023-08-13] MEDS: CARVEDILOL 3.125 MG TAB PO SCH (12:00)
[2023-08-13] MEDS: FUROSEMIDE 40 MG TAB PO SCH (12:00)
[2023-08-13] MEDS: PANTOPRAZOLE SOD 40 MG TABEC PO SCH (12:00)
[2023-08-13] MEDS: ONDANSETRON HCL INJ 2MG/ML 2ML 2 MG/ML VIAL IV PRN (12:40)
[2023-08-13] MEDS: ALBUTEROL/IPRATROPIUM 3 ML NEB NEB SCH (13:00)
[2023-08-13 15:00] LABS: TROPONIN I 0.06 ng/mL (0-0.300)
[2023-08-13] MEDS: MONTELUKAST SODIUM 10 MG TAB PO SCH (21:05)
[2023-08-14] VITALS (10 sets, daily range): BP systolic 120–140; BP diastolic 58–77; PULSE 53–71; RESP 15–20; TEMP 97.7–98.4; O2SAT 94–99
[2023-08-14] MEDS: RIFAXIMIN 550 MG TABLET PO ONE (01:30)
[2023-08-14 06:03] LABS: BASOPHILS # (AUTO) 0.1 (0.0-0.1); BASOPHILS % 0.9 % (0.0-1.0); EOSINOPHILS # (AUTO) 0.2 (0.0-0.4); EOSINOPHILS % 2.8 % (0.0-6.0); HEMATOCRIT 37.8 % (34.2-44.1); HEMOGLOBIN 12.6 g/dL (12.0-16.0); LYMPHOCYTES # (AUTO) 2.5 (1.0-3.2); LYMPHOCYTES % 44.7 % (18.0-39.1); MEAN CORPUSCULAR HEMOGLOBIN 33.8 pg (28-32); MEAN CORPUSCULAR HGB CONC 33.3 g/dL (31-35); MEAN CORPUSCULAR VOLUME 101.3 fL (81-99); MONOCYTES # (AUTO) 0.8 (0.2-0.8); MONOCYTES % 13.4 % (4.4-11.3); NEUTROPHILS # (AUTO) 2.2 (2.1-6.9); PLATELET COUNT 114 x10e3/uL (140-360); RED BLOOD COUNT 3.73 x10e6/uL (3.6-5.1); RED CELL DISTRIBUTION WIDTH 12.8 % (11.7-14.4); WHITE BLOOD COUNT 5.68 x10e3/uL (4.8-10.8)
[2023-08-14 06:16] LABS: INR 1.18; PROTHROMBIN TIME 15.3 seconds (11.9-14.5)
[2023-08-14 06:41] LABS: ALBUMIN 2.6 g/dL (3.5-5.0); ALBUMIN/GLOBULIN RATIO 0.8 (0.8-2.0); ANION GAP 9.5 mmol/L (8-16); BILIRUBIN,TOTAL 2.4 mg/dL (0.2-1.2); CALCIUM 8.9 mg/dL (8.4-10.2); CREATININE, SERUM 0.77 mg/dL (0.57-1.11); POTASSIUM 3.5 mmol/L (3.5-5.1); TOTAL PROTEIN 5.9 g/dL (6.5-8.1)
[2023-08-14] MEDS: RIFAXIMIN 550 MG TABLET PO SCH (10:07)
[2023-08-15] VITALS (11 sets, daily range): BP systolic 119–146; BP diastolic 52–86; PULSE 62–78; RESP 17–20; TEMP 98–98.2; O2SAT 94–100
[2023-08-15] MEDS: TRAMADOL HCL 50 MG TAB PO PRN (00:05)
[2023-08-15 07:02] LABS: TROPONIN I 0.051 ng/mL (0-0.300)
[2023-08-16] VITALS (13 sets, daily range): BP systolic 119–162; BP diastolic 52–81; PULSE 62–82; RESP 17–21; TEMP 98–98.6; O2SAT 95–98
[2023-08-16] MEDS: ALBUTEROL/IPRATROPIUM 3 ML NEB NEB PRN (08:44)
[2023-08-16] MEDS: POTASSIUM CHLORIDE 10MEQ EA PO ONE (10:54)
[2023-08-16] MEDS ORDERED: IOPAMIDOL 370 MG/ML 100 ML INFUS..BTL INJ ONE (11:27)
[2023-08-16] MEDS: FUROSEMIDE INJ 10 MG/ML 4 ML VIAL IV SCH (11:48)
[2023-08-16] MEDS ORDERED: ONDANSETRON HCL 4 MG ORAL DISINTEGRATING TAB PO PRN (13:15)
[2023-08-16] MEDS: METHYLPREDNISOLONE SOD SUCC 40 MG/ML VIAL 1ML IV ONE (16:14)
[2023-08-17] VITALS (11 sets, daily range): BP systolic 111–149; BP diastolic 52–94; PULSE 64–87; RESP 18–22; TEMP 97.8–98.6; O2SAT 93–100
[2023-08-17 10:10] LABS: BASOPHILS % 0.2 % (0.0-1.0); HEMATOCRIT 37.8 % (34.2-44.1); HEMOGLOBIN 13.3 g/dL (12.0-16.0); LYMPHOCYTES # (AUTO) 2.1 (1.0-3.2); MEAN CORPUSCULAR HGB CONC 35.2 g/dL (31-35); MEAN CORPUSCULAR VOLUME 96.7 fL (81-99); MONOCYTES # (AUTO) 0.6 (0.2-0.8); MONOCYTES % 5.1 % (4.4-11.3); NEUTROPHILS # (AUTO) 8.7 (2.1-6.9); NEUTROPHILS % 75.8 % (38.7-80.0); PLATELET COUNT 140 x10e3/uL (140-360); RED BLOOD COUNT 3.91 x10e6/uL (3.6-5.1); RED CELL DISTRIBUTION WIDTH 12.4 % (11.7-14.4); WHITE BLOOD COUNT 11.44 x10e3/uL (4.8-10.8)
[2023-08-17 10:29] LABS: ANION GAP 13.3 mmol/L (8-16); CALCIUM 8.8 mg/dL (8.4-10.2); CREATININE, SERUM 0.98 mg/dL (0.57-1.11); POTASSIUM 4.3 mmol/L (3.5-5.1)
[2023-08-17] MEDS ORDERED: KETOROLAC TROMETHAMINE 30 MG/ML VIAL IV PRN (11:30)
[2023-08-17] MEDS: TRAMADOL HCL 50 MG TAB PO PRN (11:51)
[2023-08-18] VITALS (11 sets, daily range): BP systolic 107–120; BP diastolic 47–89; PULSE 60–72; RESP 16–22; TEMP 97.7–98.7; O2SAT 94–100
[2023-08-18 06:11] LABS: ALBUMIN 2.6 g/dL (3.5-5.0); ALBUMIN/GLOBULIN RATIO 0.8 (0.8-2.0); BILIRUBIN,TOTAL 1.5 mg/dL (0.2-1.2); CALCIUM 8.7 mg/dL (8.4-10.2); CREATININE, SERUM 0.98 mg/dL (0.57-1.11); TOTAL PROTEIN 5.9 g/dL (6.5-8.1)
[2023-08-19] VITALS (8 sets, daily range): BP systolic 109–150; BP diastolic 48–77; PULSE 56–72; RESP 14–20; TEMP 97.5–98.6; O2SAT 95–100
[2023-08-19 05:45] LABS: BASOPHILS # (AUTO) 0.1 (0.0-0.1); BASOPHILS % 1.3 % (0.0-1.0); EOSINOPHILS # (AUTO) 0.5 (0.0-0.4); EOSINOPHILS % 7.6 % (0.0-6.0); HEMATOCRIT 35.7 % (34.2-44.1); HEMOGLOBIN 12.1 g/dL (12.0-16.0); LYMPHOCYTES # (AUTO) 3.1 (1.0-3.2); MEAN CORPUSCULAR HEMOGLOBIN 34.6 pg (28-32); MEAN CORPUSCULAR HGB CONC 33.9 g/dL (31-35); MONOCYTES # (AUTO) 0.8 (0.2-0.8); MONOCYTES % 10.7 % (4.4-11.3); NEUTROPHILS # (AUTO) 2.6 (2.1-6.9); NEUTROPHILS % 36.8 % (38.7-80.0); PLATELET COUNT 122 x10e3/uL (140-360); RED CELL DISTRIBUTION WIDTH 12.9 % (11.7-14.4); WHITE BLOOD COUNT 7.09 x10e3/uL (4.8-10.8)
[2023-08-19 06:10] LABS: ANION GAP 10.8 mmol/L (8-16); CALCIUM 8.5 mg/dL (8.4-10.2); CREATININE, SERUM 0.92 mg/dL (0.57-1.11); POTASSIUM 3.8 mmol/L (3.5-5.1)
[2023-08-19 06:32] LABS: HEPATITIS B SURFACE AG (P) Negative
[2023-08-19 06:33] LABS: HEPATITIS C ANTIBODY Non Reactive
[2023-08-19] MEDS ORDERED: SODIUM CHLORIDE 0.9% 250ML 250 ML ONE (08:58)
[2023-08-19] MEDS ORDERED: XIFAXAN550 MG PO (10:20)
[2023-08-19] MEDS: TRAMADOL HCL 50 MG TAB PO PRN (11:02)
[2023-08-20 11:21] LABS: ANTI-MITOCHONDRIAL AB SCREEN 32.4 Units (0.0-20.0); SMOOTH MUSCLE ANTIBODY(ACTIN) 16 Units (0-19)
== END 2023-08-19 14:22 | disposition home health service (06) | DRG 432 ==
LOC: ER 13:08 → ERHOLD 16:37 → MED/SURG2 19:44
PROVIDERS: ADMIT Internal Medicine; ATTEND Internal Medicine
DX: K74.60 Unspecified cirrhosis of liver (principal); I50.23 Acute on chronic systolic (congestive) heart failure; N39.0 Urinary tract infection, site not specified; K76.82 Hepatic encephalopathy; J44.9 Chronic obstructive pulmonary disease, unspecified; J44.89 Other specified chronic obstructive pulmonary disease; K76.0 Fatty (change of) liver, not elsewhere classified; R53.81 Other malaise; R53.83 Other fatigue; I11.0 Hypertensive heart disease with heart failure; G47.33 Obstructive sleep apnea (adult) (pediatric); R33.9 Retention of urine, unspecified; Z79.82 Long term (current) use of aspirin; Z79.899 Other long term (current) drug therapy; Z91.199 Patient's noncompliance with other medical treatment and regimen due to unspecified reason; Z20.822 Contact with and (suspected) exposure to COVID-19
CPT/HCPCS: 36415; 70450; 71045; 71250; 74177; 80048; 80053; 80307; 81001; 82140; 82550; 82948; 83880; 84484; 85025; 85610; 86039; 86255; 87086; 87400; 87420; 93005; 94640; 94799; 99284; J0696; J1940; J2405; J2920; J7050; Q9967; U0002

== ENCOUNTER 2024-04-04 11:28 | Inpatient (IN) | payer MEDICARE ==
[~2024-04-04] VITALS: Ht 154.9 cm; Wt 89.8 kg
[2024-04-04 11:28] VITALS: TEMP 98
[~2024-04-04 11:28] MED LIST changes: +LACTOSE FAS 9000 UNIT; +XIFAXAN550 MG PO
[2024-04-04 11:51] LABS: BASOPHILS # (AUTO) 0.1 (0.0-0.1); BASOPHILS % 1.3 % (0.0-1.0); EOSINOPHILS # (AUTO) 0.1 (0.0-0.4); EOSINOPHILS % 1.8 % (0.0-6.0); HEMATOCRIT 48.6 % (34.2-44.1); HEMOGLOBIN 16.4 g/dL (12.0-16.0); LYMPHOCYTES # (AUTO) 3.3 (1.0-3.2); MEAN CORPUSCULAR HEMOGLOBIN 34.7 pg (28-32); MEAN CORPUSCULAR HGB CONC 33.7 g/dL (31-35); MONOCYTES # (AUTO) 0.6 (0.2-0.8); MONOCYTES % 8.7 % (4.4-11.3); NEUTROPHILS # (AUTO) 2.9 (2.1-6.9); NEUTROPHILS % 40.9 % (38.7-80.0); PLATELET COUNT 169 x10e3/uL (140-360); RED BLOOD COUNT 4.72 x10e6/uL (3.6-5.1); RED CELL DISTRIBUTION WIDTH 13.3 % (11.7-14.4)
[2024-04-04 12:05] LABS: INR 1.12
[2024-04-04 12:06] LABS: PARTIAL THROMBOPLASTIN TIME 30.2 seconds (23.8-35.5)
[2024-04-04 12:09] LABS: ALBUMIN 3.1 g/dL (3.5-5.0); ALBUMIN/GLOBULIN RATIO 0.7 (0.8-2.0); ANION GAP 13.5 mmol/L (8-16); BILIRUBIN,TOTAL 3.2 mg/dL (0.2-1.2); CREATININE, SERUM 0.68 mg/dL (0.57-1.11); MAGNESIUM 2.1 MG/DL (1.3-2.1); POTASSIUM 3.5 mmol/L (3.5-5.1); TOTAL PROTEIN 7.3 g/dL (6.5-8.1)
[2024-04-04 12:15] LABS: TROPONIN I 0.162 ng/mL (0-0.300)
[2024-04-04 12:21] LABS: INFLUENZAE A&B ANTIGEN (RAPID) NEGATIVE (NEGATIVE); RESPIRATORY SYNC. VIRUS NEGATIVE (NEGATIVE)
[2024-04-04 12:33] LABS: B-TYPE NATRIURETIC PEPTIDE2 779.8 pg/mL (0-100)
[2024-04-04] MEDS: SODIUM CHLORIDE 0.9% 500ML 500 ML IV ONE (12:47)
[2024-04-04 13:01] LABS: BILIRUBIN,URINE NEGATIVE (NEGATIVE); CLARITY,URINE CLEAR (CLEAR); COLOR,URINE YELLOW (YELLOW); GLUCOSE, URINE NEGATIVE (NEGATIVE); KETONES,URINE NEGATIVE (NEGATIVE); LEUKOCYTE ESTERASE ,URINE NEGATIVE (NEGATIVE); NITRITE,URINE NEGATIVE (NEGATIVE); PH,URINE 7.5 (5 - 7); PROTEIN,URINE DIPSTICK NEGATIVE (NEGATIVE); URINE UROBILINOGEN 1 mg/dL (0.2 - 1)
[2024-04-04 13:04] LABS: WBC,URINE (MAN) 0-5 /HPF (0-5)
[2024-04-04 13:05] LABS: BACTERIA,URINE FEW /HPF; EPITHELIAL CELLS,URINE RARE /LPF; MUCUS,URINE FEW (RARE)
[2024-04-04] MEDS ORDERED: ONDANSETRON HCL INJ 2MG/ML 2ML 2 MG/ML VIAL IV PRN (13:45)
[2024-04-04] MEDS: SODIUM CHLORIDE 0.9% 1000ML 1,000 ML IV ONE (13:47)
[2024-04-04] MEDS: LACTULOSE SYRUP 20 GM/30 ML UDC PO ONE (13:47)
[2024-04-04] MEDS ORDERED: SODIUM CHLORIDE 0.9% 1000ML 1,000 ML ONE (13:49)
[2024-04-04 16:21] VITALS: PULSE 74; RESP 19
[2024-04-04] MEDS: LACTULOSE SYRUP 20 GM/30 ML UDC PO SCH (17:43)
[2024-04-04 18:02] VITALS: BP 157/95; PULSE 84; RESP 20; TEMP 98.2; O2SAT 100
[2024-04-04 18:27] VITALS: BP 157/95; PULSE 84; RESP 20; TEMP 98.2; O2SAT 100
[2024-04-04 20:45] VITALS: BP 136/104; PULSE 70; RESP 20; TEMP 99.1; O2SAT 97
[2024-04-04 22:57] LABS: TROPONIN I 0.131 ng/mL (0-0.300)
[2024-04-05] VITALS (8 sets, daily range): BP systolic 115–161; BP diastolic 75–94; PULSE 79–100; RESP 16–20; TEMP 98.1–98.8; O2SAT 94–99
[2024-04-05] MEDS ORDERED: SPIRONOLACTONE25 MG PO (00:46)
[2024-04-05] MEDS ORDERED: XIFAXAN550 MG PO (00:46)
[2024-04-05] MEDS ORDERED: TIZANIDINE HCL4 M1 PO (00:46)
[2024-04-05] MEDS ORDERED: CELEBREX100 MG PO (00:46)
[2024-04-05 06:45] LABS: BASOPHILS # (AUTO) 0.1 (0.0-0.1); BASOPHILS % 0.9 % (0.0-1.0); EOSINOPHILS # (AUTO) 0.1 (0.0-0.4); EOSINOPHILS % 1.2 % (0.0-6.0); HEMOGLOBIN 14.3 g/dL (12.0-16.0); LYMPHOCYTES # (AUTO) 2.6 (1.0-3.2); LYMPHOCYTES % 39.2 % (18.0-39.1); MEAN CORPUSCULAR HEMOGLOBIN 34.4 pg (28-32); MEAN CORPUSCULAR HGB CONC 33.3 g/dL (31-35); MEAN CORPUSCULAR VOLUME 103.4 fL (81-99); MONOCYTES # (AUTO) 0.7 (0.2-0.8); MONOCYTES % 11.3 % (4.4-11.3); NEUTROPHILS # (AUTO) 3.1 (2.1-6.9); NEUTROPHILS % 47.1 % (38.7-80.0); PLATELET COUNT 151 x10e3/uL (140-360); RED BLOOD COUNT 4.16 x10e6/uL (3.6-5.1); RED CELL DISTRIBUTION WIDTH 13.4 % (11.7-14.4); WHITE BLOOD COUNT 6.55 x10e3/uL (4.8-10.8)
[2024-04-05 07:06] LABS: ALBUMIN 2.7 g/dL (3.5-5.0); ALBUMIN/GLOBULIN RATIO 0.8 (0.8-2.0); ANION GAP 12.2 mmol/L (8-16); BILIRUBIN,TOTAL 2.7 mg/dL (0.2-1.2); CALCIUM 8.7 mg/dL (8.4-10.2); CREATININE, SERUM 0.74 mg/dL (0.57-1.11); TOTAL PROTEIN 6.2 g/dL (6.5-8.1)
[2024-04-05 07:14] LABS: POTASSIUM 3.2 mmol/L (3.5-5.1)
[2024-04-05 07:49] LABS: TROPONIN I 0.132 ng/mL (0-0.300)
[2024-04-05] MEDS ORDERED: ALBUTEROL/IPRATROPIUM 3 ML NEB NEB PRN (09:30)
[2024-04-05] MEDS ORDERED: TIZANIDINE HCL 4 MG TAB PO PRN (09:30)
[2024-04-05] MEDS ORDERED: CEFTRIAXONE 1 GM VIAL ONE (10:05)
[2024-04-05] MEDS: FUROSEMIDE 40 MG TAB PO SCH (11:49)
[2024-04-05] MEDS: ALBUTEROL/IPRATROPIUM 3 ML NEB NEB SCH (14:16)
[2024-04-05] MEDS: MONTELUKAST SODIUM 10 MG TAB PO SCH (17:49)
[2024-04-05] MEDS: CARVEDILOL 3.125 MG TAB PO SCH (17:49)
[2024-04-05] MEDS: RIFAXIMIN 550 MG TABLET PO SCH (17:49)
[2024-04-05] MEDS: TRAMADOL HCL 50 MG TAB PO PRN (18:30)
[2024-04-05] MEDS: BUDESONIDE/FORMOTEROL 80/4.5 MCG INHALER IH SCH (19:21)
[2024-04-05] MEDS: POTASSIUM CHLORIDE 10MEQ EA PO SCH (22:27)
[2024-04-06] VITALS (12 sets, daily range): BP systolic 113–150; BP diastolic 71–92; PULSE 69–96; RESP 15–20; TEMP 97.4–99.5; O2SAT 94–100
[2024-04-06] MEDS: POTASSIUM CHLORIDE 10MEQ EA ONE (03:07)
[2024-04-06 05:30] LABS: BASOPHILS % 0.6 % (0.0-1.0); EOSINOPHILS # (AUTO) 0.4 (0.0-0.4); HEMATOCRIT 39.5 % (34.2-44.1); HEMOGLOBIN 13.2 g/dL (12.0-16.0); LYMPHOCYTES # (AUTO) 3.2 (1.0-3.2); LYMPHOCYTES % 45.3 % (18.0-39.1); MEAN CORPUSCULAR HEMOGLOBIN 34.6 pg (28-32); MEAN CORPUSCULAR HGB CONC 33.4 g/dL (31-35); MEAN CORPUSCULAR VOLUME 103.4 fL (81-99); MONOCYTES # (AUTO) 0.8 (0.2-0.8); NEUTROPHILS # (AUTO) 2.7 (2.1-6.9); PLATELET COUNT 140 x10e3/uL (140-360); RED BLOOD COUNT 3.82 x10e6/uL (3.6-5.1); RED CELL DISTRIBUTION WIDTH 13.3 % (11.7-14.4); WHITE BLOOD COUNT 7.07 x10e3/uL (4.8-10.8)
[2024-04-06 06:05] LABS: ANION GAP 10.9 mmol/L (8-16); CALCIUM 8.2 mg/dL (8.4-10.2); CREATININE, SERUM 0.75 mg/dL (0.57-1.11); POTASSIUM 3.9 mmol/L (3.5-5.1)
[2024-04-06 06:31] LABS: TROPONIN I 0.111 ng/mL (0-0.300)
[2024-04-06] MEDS: SPIRONOLACTONE 25 MG TAB PO SCH (09:25)
[2024-04-06] MEDS: SODIUM CHLORIDE 0.9% 250ML 250 ML ONE (17:23)
[2024-04-07] VITALS (12 sets, daily range): BP systolic 118–140; BP diastolic 64–79; PULSE 66–90; RESP 16–20; TEMP 98–99.3; O2SAT 94–100
[2024-04-07 06:35] LABS: ALBUMIN 2.4 g/dL (3.5-5.0); ALBUMIN/GLOBULIN RATIO 0.9 (0.8-2.0); ANION GAP 8.4 mmol/L (8-16); BILIRUBIN,TOTAL 1.9 mg/dL (0.2-1.2); CALCIUM 8.1 mg/dL (8.4-10.2); CREATININE, SERUM 0.69 mg/dL (0.57-1.11); TOTAL PROTEIN 5.2 g/dL (6.5-8.1)
[2024-04-07 06:36] LABS: POTASSIUM 3.4 mmol/L (3.5-5.1)
[2024-04-08] VITALS (10 sets, daily range): BP systolic 106–130; BP diastolic 48–71; PULSE 65–85; RESP 16–22; TEMP 97.3–98.9; O2SAT 95–100
[2024-04-08] MEDS ORDERED: PANTOPRAZOLE SOD 40 MG TABEC PO ONE (09:00)
[2024-04-08] MEDS: PANTOPRAZOLE SOD 40 MG TABEC PO SCH (09:44)
[2024-04-08] MEDS: CARVEDILOL 3.125 MG TAB PO SCH (21:35)
[2024-04-08] MEDS: POTASSIUM CHLORIDE 10MEQ EA PO PRN (22:17)
[2024-04-09] VITALS: BP 123/57; PULSE 72; RESP 18; TEMP 98.6; O2SAT 100
[2024-04-09 01:10] VITALS: PULSE 79; RESP 18; O2SAT 96
[2024-04-09 04:00] VITALS: BP 123/75; PULSE 70; RESP 18; TEMP 97.7; O2SAT 96
[2024-04-09 07:03] LABS: BASOPHILS % 0.4 % (0.0-1.0); EOSINOPHILS # (AUTO) 0.4 (0.0-0.4); EOSINOPHILS % 6.9 % (0.0-6.0); HEMOGLOBIN 12.1 g/dL (12.0-16.0); LYMPHOCYTES # (AUTO) 2.1 (1.0-3.2); LYMPHOCYTES % 40.1 % (18.0-39.1); MEAN CORPUSCULAR HEMOGLOBIN 35.1 pg (28-32); MEAN CORPUSCULAR HGB CONC 33.6 g/dL (31-35); MEAN CORPUSCULAR VOLUME 104.3 fL (81-99); MONOCYTES # (AUTO) 0.7 (0.2-0.8); MONOCYTES % 13.5 % (4.4-11.3); NEUTROPHILS % 38.9 % (38.7-80.0); PLATELET COUNT 119 x10e3/uL (140-360); RED BLOOD COUNT 3.45 x10e6/uL (3.6-5.1); RED CELL DISTRIBUTION WIDTH 12.8 % (11.7-14.4); WHITE BLOOD COUNT 5.24 x10e3/uL (4.8-10.8)
[2024-04-09 07:12] VITALS: PULSE 72; RESP 18; O2SAT 95
[2024-04-09 07:33] LABS: ANION GAP 10.5 mmol/L (8-16); CALCIUM 8.1 mg/dL (8.4-10.2); CREATININE, SERUM 0.68 mg/dL (0.57-1.11); POTASSIUM 3.5 mmol/L (3.5-5.1)
[2024-04-09 08:59] VITALS: BP 134/90; PULSE 81; RESP 18; TEMP 97.9; O2SAT 99
[2024-04-09 09:58] VITALS: BP 134/90; PULSE 81; RESP 18; TEMP 97.9; O2SAT 99
[2024-04-09] MEDS ORDERED: LACTULOSE20 GM/30 M PO (10:02)
== END 2024-04-09 11:50 | disposition home or self-care (01) | DRG 441 ==
LOC: ER 11:37 → ERHOLD 13:41 → MED/SURG3 17:26
PROVIDERS: ADMIT Internal Medicine; ATTEND Internal Medicine
DX: K76.82 Hepatic encephalopathy (principal); G92.8 Other toxic encephalopathy; F23 Brief psychotic disorder; I50.30 Unspecified diastolic (congestive) heart failure; N39.0 Urinary tract infection, site not specified; I11.0 Hypertensive heart disease with heart failure; K74.69 Other cirrhosis of liver; K75.81 Nonalcoholic steatohepatitis (NASH); E86.0 Dehydration; J44.9 Chronic obstructive pulmonary disease, unspecified; E66.01 Morbid (severe) obesity due to excess calories; Z68.37 Body mass index [BMI] 37.0-37.9, adult; R53.81 Other malaise; F32.9 Major depressive disorder, single episode, unspecified; F41.9 Anxiety disorder, unspecified; T47.3X6A Underdosing of saline and osmotic laxatives, initial encounter; Z91.148 Patient's other noncompliance with medication regimen for other reason; Z11.52 Encounter for screening for COVID-19; Z79.82 Long term (current) use of aspirin; Z79.51 Long term (current) use of inhaled steroids; Z90.710 Acquired absence of both cervix and uterus
CPT/HCPCS: 36415; 70450; 71045; 80048; 80053; 81001; 82140; 82550; 83735; 83880; 84484; 85025; 85610; 85730; 87040; 87086; 87400; 87420; 93005; 94640; 94664; 94799; 99252; 99285; J0696; J7030; J7040; J7050; U0002